=== PATIENT | male | born 1965 | race Caucasian/White ===

== ENCOUNTER 2016-09-25 18:06 | Emergency (ER) | payer MEDICAID ==
[~2016-09-25] VITALS: Ht 185.4 cm; Wt 75.0 kg
[~2016-09-25 18:06] MED LIST: AMIT100T PO; FERR325T20 PO; FLUO20CA8 PO; FLUO40CA9 PO; FOLI-17 PO; HYDR-3138 PO; MAGN400T26 PO; MULT-750 PO; RISP1TAB45 PO; RISP3TAB3 PO; SULF1TAB3 PO; THIA100T6 PO; TRAM-28 PO
[2016-09-25] MEDS ORDERED: SUCR1ORA2 PO (18:20)
[2016-09-25] MEDS ORDERED: QUET400T4 PO (18:20)
[2016-09-25] MEDS ORDERED: LISI-167 PO (18:20)
[2016-09-25] MEDS ORDERED: GLUCAGON 1 MG IVPush ONE (18:30)
[2016-09-25] MEDS ORDERED: SODIUM CHLORIDE 0.9% 1,000ML IVBOLUS ONE (18:30)
[2016-09-25] MEDS ORDERED: PROPOFOL 10 MG/ML, 20ML ONE (18:58)
[2016-09-25] MEDS ORDERED: PROPOFOL 10 MG/ML, 20ML IVPush ONE ×2 (19:00→21:00)
[2016-09-25] MEDS ORDERED: GLUCAGON 1 MG ONE (19:02)
[2016-09-25 19:22] LABS: BLOOD UREA NITROGEN 16 mg/dL (7-18)
[2016-09-25 19:26] LABS: ASPARTATE AMINO TRANSFERASE 23 U/L (15-37)
[2016-09-25] MEDS ORDERED: FENTANYL PF 100 MCG/2ML ONE (20:03)
[2016-09-25] MEDS ORDERED: NALOXONE 0.4 MG/ML, 1ML ONE (20:03)
[2016-09-25] MEDS ORDERED: MIDAZOLAM 1 MG/ML, 5ML ONE (20:04)
[2016-09-25] MEDS ORDERED: FLUMAZENIL 0.1 MG/1 ML, 5ML ONE (20:04)
[2016-09-25] MEDS ORDERED: ONDANSETRON 2MG/ML, 2ML ONE ×2 (20:36→20:42)
[2016-09-25] MEDS ORDERED: FENTANYL PF 100 MCG/2ML IVPush ONE (21:00)
[2016-09-25] MEDS ORDERED: ONDANSETRON 2MG/ML, 2ML IVPush ONE (21:00)
[2016-09-25 21:42] VITALS: BP 111/73
== END 2016-09-25 21:44 | disposition home or self-care (01) ==
LOC: ED 18:24
DX: T18.108A Unspecified foreign body in esophagus causing other injury, initial encounter (principal); X58.XXXA Exposure to other specified factors, initial encounter; Y93.89 Activity, other specified; Y92.89 Other specified places as the place of occurrence of the external cause; Y99.9 Unspecified external cause status
CPT/HCPCS: 36415; 43247; 80053; 85025; 96361; 96374; 96375; 99285; J1610; J2405; J2704; J3010; J7030; 88305

== ENCOUNTER 2016-10-14 13:09 | Inpatient (IN) | payer MEDICAID ==
[~2016-10-14] VITALS: Ht 185.4 cm; Wt 75.0 kg
[~2016-10-14 13:09] MED LIST changes: +LISI-167 PO; +QUET400T4 PO; +SUCR1ORA2 PO
[2016-10-14] MEDS ORDERED: FAMOTIDINE 20 MG/2 ML ONE (13:48)
[2016-10-14] MEDS ORDERED: METOCLOPRAMIDE 5 MG/ML, 2ML ONE (13:48)
[2016-10-14] MEDS ORDERED: DIPHENHYDRAMINE 50 MG/ML, 1ML ONE (13:48)
[2016-10-14] MEDS ORDERED: SODIUM CHLORIDE FLUSH 10ML SYR IVF ONE (14:00)
[2016-10-14] MEDS ORDERED: SODIUM CHLORIDE 0.9% 1,000ML IVBOLUS ONE (14:00)
[2016-10-14] MEDS ORDERED: DIPHENHYDRAMINE 50 MG/ML, 1ML IVPush ONE (14:00)
[2016-10-14] MEDS ORDERED: METOCLOPRAMIDE 5 MG/ML, 2ML IVPush ONE (14:00)
[2016-10-14] MEDS ORDERED: FAMOTIDINE 20 MG/2 ML IVP ONE (14:00)
[2016-10-14 14:26] LABS: BLOOD UREA NITROGEN 42 mg/dL (7-18)
[2016-10-14 14:30] LABS: ASPARTATE AMINO TRANSFERASE 39 U/L (15-37)
[2016-10-14 15:26] LABS: DAU SCREEN DISCLAIMER
[2016-10-14] MEDS ORDERED: SODIUM CHLORIDE 0.9% 1,000 ML IV ONE (15:30)
[2016-10-14] MEDS: SODIUM CHLORIDE 0.9% 1,000 ML IV SCH (15:43)
[2016-10-14] MEDS ORDERED: ACETAMINOPHEN 325 MG TABLET ONE (15:58)
[2016-10-14] MEDS ORDERED: OXYcodone IR 5MG TABLET ONE (15:58)
[2016-10-14] MEDS ORDERED: hydrALAzine 20 MG/ML, 1ML IVPush PRN (16:00)
[2016-10-14] MEDS ORDERED: ENALAPRILAT 1.25 MG/ML, 2ML IVPush PRN (16:00)
[2016-10-14] MEDS ORDERED: BISACODYL 10 MG SUPP PR PRN (16:00)
[2016-10-14] MEDS ORDERED: OXYcodone IR 5MG TABLET PO PRN (16:00)
[2016-10-14] MEDS ORDERED: ACETAMINOPHEN 325 MG TABLET PO PRN (16:00)
[2016-10-14] MEDS ORDERED: POLYETHYLENE GLYCOL 17 GM PACKET PO PRN (16:00)
[2016-10-14] MEDS ORDERED: ONDANSETRON 2MG/ML, 2ML IVPush PRN (16:00)
[2016-10-14] MEDS ORDERED: morphine SULFATE 10 MG/ML, 1ML IVPush PRN (16:00)
[2016-10-14] MEDS ORDERED: DOCUSATE 100 MG CAPSULE PO PRN (16:00)
[2016-10-14 17:12] VITALS: BP 108/70
[2016-10-14] MEDS ORDERED: THIAMINE 100 MG, MVI ADULT 10 ML, FOLIC ACID 1 MG in D5%-0.9% NACL 1,000 ML IV SCH (17:30)
[2016-10-14] MEDS: PANTOPRAZOLE 40 MG IV IVPush SCH (18:18)
[2016-10-14 19:57] VITALS: BP 109/70
[2016-10-14] MEDS: SUCRALFATE 1 GM/10 ML UDC PO SCH ×2 (20:36→20:58)
[2016-10-14] MEDS ORDERED: QUETIAPINE 100MG TABLET PO SCH (21:00)
[2016-10-15 02:03] VITALS: BP 107/71
[2016-10-15 05:10] LABS: BLOOD UREA NITROGEN 19 mg/dL (7-18)
[2016-10-15 05:29] LABS: ASPARTATE AMINO TRANSFERASE 31 U/L (15-37)
[2016-10-15] MEDS: PANTOPRAZOLE 40 MG IV IVPush SCH ×2 (05:43→16:48)
[2016-10-15 08:25] VITALS: BP 93/56
[2016-10-15] MEDS: SUCRALFATE 1 GM/10 ML UDC PO SCH ×3 (08:34→16:48)
[2016-10-15] MEDS ORDERED: FLUOXETINE 20 MG CAPSULE PO SCH (09:00)
[2016-10-15] MEDS ORDERED: FOLIC ACID 1 MG TABLET PO SCH (09:00)
[2016-10-15] MEDS ORDERED: POTASSIUM CHLORIDE 40 MEQ in SODIUM CHLORIDE 0.9% 500 ML IV ONE (11:00)
[2016-10-15] MEDS: SODIUM CHLORIDE 0.9% 1,000 ML IV SCH (11:39)
[2016-10-15 15:17] VITALS: BP 98/55
== END 2016-10-15 19:05 | disposition left against medical advice (07) | DRG 391 ==
LOC: ED 14:51 → EDIP 14:54 → 3NE 16:44
PROVIDERS: ADMIT Hospitalist; ATTEND Hospitalist
DX: K29.20 Alcoholic gastritis without bleeding (principal); N17.0 Acute kidney failure with tubular necrosis; F10.239 Alcohol dependence with withdrawal, unspecified; E86.0 Dehydration; F31.9 Bipolar disorder, unspecified; I10 Essential (primary) hypertension; D64.9 Anemia, unspecified; Z82.5 Family history of asthma and other chronic lower respiratory diseases
CPT/HCPCS: 36415; 76700; 80053; 80061; 80307; 81003; 83036; 83690; 83735; 84439; 84443; 85025; 93005; 96361; 96374; 96375; J3411; J3480; J7042; C9113; J1200; J2765; J7030; J7040; S0028

== ENCOUNTER 2016-10-17 22:24 | Emergency (ER) | payer MEDICAID ==
[~2016-10-17] VITALS: Ht 185.4 cm; Wt 76.0 kg
[2016-10-18 00:48] VITALS: BP 117/73
== END 2016-10-18 01:53 | disposition home or self-care (01) ==
LOC: ED 23:03
DX: G31.2 Degeneration of nervous system due to alcohol (principal); F10.129 Alcohol abuse with intoxication, unspecified; F17.200 Nicotine dependence, unspecified, uncomplicated; J44.9 Chronic obstructive pulmonary disease, unspecified
CPT/HCPCS: 99283

== ENCOUNTER 2016-10-18 04:45 | Emergency (ER) | payer MEDICAID ==
[~2016-10-18] VITALS: Ht 177.8 cm; Wt 86.3 kg
[2016-10-18 06:24] LABS: ASPARTATE AMINO TRANSFERASE 67 U/L (15-37); BLOOD UREA NITROGEN 14 mg/dL (7-18)
[2016-10-18 08:23] VITALS: BP 110/77
[2016-10-18] MEDS ORDERED: BACITRACIN ZINC OINT 500U/GM, 0.9 GM ONE (10:09)
== END 2016-10-18 10:24 | disposition home or self-care (01) ==
LOC: ED 05:32
DX: S00.83XA Contusion of other part of head, initial encounter (principal); S00.33XA Contusion of nose, initial encounter; F10.120 Alcohol abuse with intoxication, uncomplicated; J44.9 Chronic obstructive pulmonary disease, unspecified; F17.210 Nicotine dependence, cigarettes, uncomplicated; Y04.2XXA Assault by strike against or bumped into by another person, initial encounter
CPT/HCPCS: 36415; 70450; 70486; 80053; 80307; 85025; 85610; 85730; 99285

== ENCOUNTER 2016-11-01 12:32 | Emergency (ER) | payer MEDICAID ==
[~2016-11-01] VITALS: Ht 185.4 cm; Wt 74.0 kg
[2016-11-01 13:48] LABS: BLOOD UREA NITROGEN 13 mg/dL (7-18)
[2016-11-01 13:57] LABS: ACETAMINOPHEN < 2 mcg/mL (10-30); ASPARTATE AMINO TRANSFERASE 39 U/L (15-37)
[2016-11-01 16:29] LABS: DAU SCREEN DISCLAIMER
[2016-11-01] MEDS ORDERED: ZIPRASIDONE 20 MG INJ IM ONE ×2 (17:31→18:00)
[2016-11-01 20:17] VITALS: BP 118/70
[2016-11-01] MEDS ORDERED: PROMETHAZINE 25 MG/ML, 1ML ONE (20:59)
[2016-11-01] MEDS ORDERED: PROMETHAZINE 25 MG/ML, 1ML IM ONE (21:00)
[2016-11-01] MEDS ORDERED: LORazepam 1MG TABLET ONE (22:29)
[2016-11-01] MEDS ORDERED: LORazepam 1MG TABLET PO ONE (22:30)
== END 2016-11-01 23:02 | disposition home or self-care (01) ==
LOC: ED 12:59
DX: S21.112D Laceration without foreign body of left front wall of thorax without penetration into thoracic cavity, subsequent encounter (principal); F10.129 Alcohol abuse with intoxication, unspecified
CPT/HCPCS: 36415; 71010; 80053; 80307; 80329; 85025; 96372; 99285; J2550; J3486; G0480

== ENCOUNTER 2016-11-15 02:45 | Emergency (ER) | payer MEDICAID ==
[~2016-11-15] VITALS: Ht 185.4 cm; Wt 74.7 kg
[2016-11-15] MEDS ORDERED: FLUO40CA9 PO (03:47)
[2016-11-15] MEDS ORDERED: QUET400T4 PO (03:47)
[2016-11-15] MEDS ORDERED: PROMETHAZINE 25 MG/ML, 1ML ONE (04:26)
[2016-11-15] MEDS ORDERED: PROMETHAZINE 25 MG/ML, 1ML IM ONE (04:30)
[2016-11-15 04:43] LABS: ASPARTATE AMINO TRANSFERASE 27 U/L (15-37); BLOOD UREA NITROGEN 13 mg/dL (7-18)
[2016-11-15] MEDS ORDERED: ONDANSETRON ODT 8 MG PO STA (05:22)
[2016-11-15] MEDS ORDERED: ONDANSETRON ODT 4 MG ONE (05:30)
[2016-11-15] MEDS ORDERED: ONDANSETRON ODT 8 MG ONE (05:31)
[2016-11-15 06:02] VITALS: BP 121/79
== END 2016-11-15 06:12 | disposition home or self-care (01) ==
LOC: ED 03:39
DX: K29.20 Alcoholic gastritis without bleeding (principal); F15.10 Other stimulant abuse, uncomplicated; F12.10 Cannabis abuse, uncomplicated; F10.10 Alcohol abuse, uncomplicated; J44.9 Chronic obstructive pulmonary disease, unspecified; G40.909 Epilepsy, unspecified, not intractable, without status epilepticus; F17.210 Nicotine dependence, cigarettes, uncomplicated
CPT/HCPCS: 36415; 71010; 80053; 80307; 81003; 83690; 85025; 96372; 99285; J2550; Q0162

== ENCOUNTER 2016-11-21 04:18 | Emergency (ER) | payer MEDICAID ==
[2016-11-21 04:53] VITALS: BP 104/71
== END 2016-11-21 05:13 | disposition home or self-care (01) ==
LOC: ED 05:07
DX: Z76.5 Malingerer [conscious simulation] (principal)
CPT/HCPCS: 99281

== ENCOUNTER 2016-11-30 16:46 | Inpatient (IN) | payer MEDICAID ==
[~2016-11-30] VITALS: Ht 185.4 cm; Wt 72.7 kg
[~2016-11-30 16:46] MED LIST changes: +FERR325T18 PO; -FERR325T20 PO; -HYDR-3138 PO; +HYDR-3237 PO; -SUCR1ORA2 PO; +SUCR1ORA5 PO; +SULF-169 PO; -SULF1TAB3 PO; -TRAM-28 PO; +TRAM-47 PO
[2016-11-30 17:50] LABS: HEMATOCRIT 40.2 % (39.2-51.8); HEMOGLOBIN 13.1 g/dL (13.7-18.0); WHITE BLOOD COUNT 10.3 x10^3/uL (3.4-10)
[2016-11-30 17:59] LABS: ASPARTATE AMINO TRANSFERASE 37 U/L (15-37); BLOOD UREA NITROGEN 12 mg/dL (7-18)
[2016-11-30] MEDS ORDERED: MAALOX/HYOSCYAMINE/LIDOCAINE 45 ML BTL PO ONE (18:00)
[2016-11-30 18:06] LABS: ACETAMINOPHEN < 2 mcg/mL (10-30)
[2016-11-30] MEDS ORDERED: LORazepam 2 MG/ML, 1ML IVPush ONE (19:00)
[2016-11-30] MEDS ORDERED: SODIUM CHLORIDE FLUSH 10ML SYR IVF ONE (19:00)
[2016-11-30] MEDS ORDERED: LORazepam 2 MG/ML, 1ML ONE ×2 (19:04→21:45)
[2016-11-30] MEDS ORDERED: MAALOX/HYOSCYAMINE/LIDOCAINE 45 ML BTL ONE (19:26)
[2016-11-30 19:37] LABS: DAU SCREEN DISCLAIMER
[2016-11-30 19:45] LABS: PATH.CAST-FLAG NOT PRESENT; SPERM-FLAG NOT PRESENT; SRC-FLAG NOT PRESENT; XTAL-FLAG NOT PRESENT; YLC-FLAG NOT PRESENT
[2016-11-30] MEDS ORDERED: THIAMINE 100MG TABLET PO ONE (20:00)
[2016-11-30] MEDS ORDERED: LORazepam 2 MG/ML, 1ML IVPush PRN (20:00)
[2016-11-30] MEDS ORDERED: SODIUM CHLORIDE 0.9% 1,000 ML IV SCH (20:50)
[2016-11-30] MEDS ORDERED: LORazepam 0.5MG TABLET PO PRN (21:00)
[2016-11-30] MEDS ORDERED: LORazepam 2 MG/ML, 1ML IV PRN ×3 (21:00)
[2016-11-30] MEDS ORDERED: DOCUSATE 100 MG CAPSULE PO PRN (21:00)
[2016-11-30] MEDS ORDERED: LORazepam 1MG TABLET PO PRN (21:00)
[2016-11-30] MEDS ORDERED: morphine SULFATE 10 MG/ML, 1ML IVPush PRN (21:00)
[2016-11-30] MEDS ORDERED: ACETAMINOPHEN 325 MG TABLET PO PRN (21:00)
[2016-11-30] MEDS ORDERED: POLYETHYLENE GLYCOL 17 GM PACKET PO PRN (21:00)
[2016-11-30] MEDS ORDERED: GUAIFENESIN/DM 200-20MG, 10ML UDC PO PRN (21:00)
[2016-11-30] MEDS ORDERED: THIAMINE 100MG TABLET ONE (21:17)
[2016-11-30] MEDS ORDERED: ONDANSETRON 2MG/ML, 2ML ONE (21:17)
[2016-11-30] MEDS ORDERED: CEFTRIAXONE PMX 1GM/50ML 50 ML ONE (21:18)
[2016-11-30] MEDS: CEFTRIAXONE PMX 1GM/50ML 50 ML IV SCH (21:34)
[2016-11-30] MEDS: ONDANSETRON 2MG/ML, 2ML IVPush PRN (21:35)
[2016-11-30] MEDS ORDERED: OXYcodone IR 5MG TABLET ONE (21:43)
[2016-11-30] MEDS: QUETIAPINE 100MG TABLET PO SCH (21:49)
[2016-11-30] MEDS: OXYcodone IR 5MG TABLET PO PRN (21:49)
[2016-12-01 02:33] VITALS: BP 109/75
[2016-12-01 05:55] LABS: HEMOGLOBIN 11.9 g/dL (13.7-18.0); WHITE BLOOD COUNT 11.6 x10^3/uL (3.4-10)
[2016-12-01 05:58] LABS: BLOOD UREA NITROGEN 13 mg/dL (7-18)
[2016-12-01 08:00] VITALS: BP 110/66
[2016-12-01] MEDS ORDERED: SENNA/DOCUSATE TABLET PO SCH (09:00)
[2016-12-01] MEDS: MULTIVITAMINS/MINERALS TABLET PO SCH (09:11)
[2016-12-01] MEDS: FLUOXETINE 20 MG CAPSULE PO SCH (09:11)
[2016-12-01] MEDS: FOLIC ACID 1 MG TABLET PO SCH (09:12)
[2016-12-01] MEDS: THIAMINE 100MG TABLET PO SCH (09:12)
[2016-12-01] MEDS ORDERED: SODIUM CHLORIDE 0.9% 1,000 ML IV ONE (09:30)
[2016-12-01 13:34] VITALS: BP 103/58
[2016-12-01 14:42] VITALS: BP 105/66
[2016-12-01] MEDS: OXYcodone IR 5MG TABLET PO PRN ×2 (14:44→20:49)
[2016-12-01 19:30] VITALS: BP 109/70
[2016-12-01] MEDS: CEFTRIAXONE PMX 1GM/50ML 50 ML IV SCH (20:48)
[2016-12-01] MEDS: QUETIAPINE 100MG TABLET PO SCH (20:48)
[2016-12-02 02:36] VITALS: BP 142/89
[2016-12-02 03:55] VITALS: BP 128/76
[2016-12-02 05:30] LABS: HEMATOCRIT 33.6 % (39.2-51.8); HEMOGLOBIN 11.3 g/dL (13.7-18.0); WHITE BLOOD COUNT 6.6 x10^3/uL (3.4-10)
[2016-12-02 05:42] LABS: ASPARTATE AMINO TRANSFERASE 29 U/L (15-37); BLOOD UREA NITROGEN 10 mg/dL (7-18)
[2016-12-02 07:02] VITALS: BP 117/65
[2016-12-02] MEDS: SENNA/DOCUSATE TABLET PO SCH (09:03)
[2016-12-02] MEDS: FOLIC ACID 1 MG TABLET PO SCH (09:03)
[2016-12-02] MEDS: MULTIVITAMINS/MINERALS TABLET PO SCH (09:03)
[2016-12-02] MEDS: THIAMINE 100MG TABLET PO SCH (09:03)
[2016-12-02] MEDS: FLUOXETINE 20 MG CAPSULE PO SCH (09:03)
[2016-12-02] MEDS: LORazepam 1MG TABLET PO PRN ×3 (10:22→22:10)
[2016-12-02] MEDS: ONDANSETRON 2MG/ML, 2ML IVPush PRN (10:22)
[2016-12-02 13:21] VITALS: BP 100/64
[2016-12-02] MEDS: FERROUS SULFATE 325 MG TABLET PO SCH (16:33)
[2016-12-02 19:45] VITALS: BP 109/69
[2016-12-02] MEDS: CEFTRIAXONE PMX 1GM/50ML 50 ML IV SCH (22:09)
[2016-12-02] MEDS: OXYcodone IR 5MG TABLET PO PRN (22:10)
[2016-12-02] MEDS: QUETIAPINE 100MG TABLET PO SCH (22:10)
[2016-12-03 03:48] VITALS: BP 109/74
[2016-12-03 05:14] LABS: HEMATOCRIT 35.8 % (39.2-51.8); HEMOGLOBIN 11.6 g/dL (13.7-18.0)
[2016-12-03 05:21] LABS: BLOOD UREA NITROGEN 8 mg/dL (7-18)
[2016-12-03 06:56] VITALS: BP 100/66
[2016-12-03] MEDS: FERROUS SULFATE 325 MG TABLET PO SCH ×2 (10:11→16:56)
[2016-12-03] MEDS: MULTIVITAMINS/MINERALS TABLET PO SCH (10:11)
[2016-12-03] MEDS: FOLIC ACID 1 MG TABLET PO SCH (10:11)
[2016-12-03] MEDS: THIAMINE 100MG TABLET PO SCH (10:12)
[2016-12-03] MEDS: SENNA/DOCUSATE TABLET PO SCH (10:12)
[2016-12-03] MEDS: FLUOXETINE 20 MG CAPSULE PO SCH (10:12)
[2016-12-03] MEDS: ONDANSETRON 2MG/ML, 2ML IVPush PRN (11:36)
[2016-12-03 13:16] VITALS: BP 96/60
[2016-12-03] MEDS: OXYcodone IR 5MG TABLET PO PRN (15:08)
[2016-12-03 19:00] VITALS: BP 127/79
[2016-12-03] MEDS: QUETIAPINE 100MG TABLET PO SCH (20:53)
[2016-12-04 03:00] VITALS: BP 92/56
[2016-12-04 08:07] VITALS: BP 108/79
[2016-12-04] MEDS: FOLIC ACID 1 MG TABLET PO SCH (08:18)
[2016-12-04] MEDS: SENNA/DOCUSATE TABLET PO SCH (08:18)
[2016-12-04] MEDS: MULTIVITAMINS/MINERALS TABLET PO SCH (08:18)
[2016-12-04] MEDS: FLUOXETINE 20 MG CAPSULE PO SCH (08:18)
[2016-12-04] MEDS: THIAMINE 100MG TABLET PO SCH (08:18)
[2016-12-04] MEDS: TAMSULOSIN 0.4 MG CAP.ER.24H PO SCH (08:18)
[2016-12-04] MEDS: FERROUS SULFATE 325 MG TABLET PO SCH ×2 (08:18→17:14)
[2016-12-04 13:23] VITALS: BP 122/82
[2016-12-04] MEDS ORDERED: LORazepam 1MG TABLET ONE (17:11)
[2016-12-04] MEDS: LORazepam 1MG TABLET PO PRN (17:14)
[2016-12-04] MEDS: QUETIAPINE 100MG TABLET PO SCH (20:01)
[2016-12-04 21:00] VITALS: BP 97/62
[2016-12-05 02:28] VITALS: BP 99/68
[2016-12-05 07:18] VITALS: BP 102/72
[2016-12-05] MEDS: TAMSULOSIN 0.4 MG CAP.ER.24H PO SCH (09:56)
[2016-12-05] MEDS: FLUOXETINE 20 MG CAPSULE PO SCH (09:56)
[2016-12-05] MEDS: FERROUS SULFATE 325 MG TABLET PO SCH ×2 (09:56→17:23)
[2016-12-05] MEDS: THIAMINE 100MG TABLET PO SCH (09:56)
[2016-12-05] MEDS: FOLIC ACID 1 MG TABLET PO SCH (09:56)
[2016-12-05] MEDS: MULTIVITAMINS/MINERALS TABLET PO SCH (09:56)
[2016-12-05] MEDS: SENNA/DOCUSATE TABLET PO SCH (09:57)
[2016-12-05] MEDS: LORazepam 1MG TABLET PO PRN (12:16)
[2016-12-05 14:19] VITALS: BP 131/88
[2016-12-05] MEDS: OXYcodone IR 5MG TABLET PO PRN (17:31)
[2016-12-05 18:47] VITALS: BP 122/82
[2016-12-05] MEDS: QUETIAPINE 100MG TABLET PO SCH (20:49)
[2016-12-06 01:58] VITALS: BP 102/68
[2016-12-06] MEDS: OXYcodone IR 5MG TABLET PO PRN (05:13)
[2016-12-06 06:47] VITALS: BP 110/72
[2016-12-06] MEDS: FERROUS SULFATE 325 MG TABLET PO SCH ×2 (09:55→17:51)
[2016-12-06] MEDS: FLUOXETINE 20 MG CAPSULE PO SCH (09:57)
[2016-12-06] MEDS: SENNA/DOCUSATE TABLET PO SCH (09:57)
[2016-12-06] MEDS: THIAMINE 100MG TABLET PO SCH (09:57)
[2016-12-06] MEDS: FOLIC ACID 1 MG TABLET PO SCH (09:57)
[2016-12-06] MEDS: TAMSULOSIN 0.4 MG CAP.ER.24H PO SCH (09:57)
[2016-12-06] MEDS: MULTIVITAMINS/MINERALS TABLET PO SCH (09:58)
[2016-12-06 13:02] VITALS: BP 105/78
[2016-12-06] MEDS: LORazepam 1MG TABLET PO PRN (18:03)
[2016-12-06 18:46] VITALS: BP 135/87
[2016-12-06] MEDS: QUETIAPINE 100MG TABLET PO SCH (20:42)
[2016-12-07 01:20] VITALS: BP 108/73
[2016-12-07 07:24] VITALS: BP 99/64
[2016-12-07] MEDS: MULTIVITAMINS/MINERALS TABLET PO SCH (08:03)
[2016-12-07] MEDS: FLUOXETINE 20 MG CAPSULE PO SCH (08:03)
[2016-12-07] MEDS: FERROUS SULFATE 325 MG TABLET PO SCH ×2 (08:03→17:12)
[2016-12-07] MEDS: SENNA/DOCUSATE TABLET PO SCH (08:03)
[2016-12-07] MEDS: FOLIC ACID 1 MG TABLET PO SCH (08:03)
[2016-12-07] MEDS: TAMSULOSIN 0.4 MG CAP.ER.24H PO SCH (08:03)
[2016-12-07] MEDS: THIAMINE 100MG TABLET PO SCH (08:03)
[2016-12-07 13:56] VITALS: BP 107/72
[2016-12-07] MEDS: LORazepam 1MG TABLET PO PRN ×2 (13:58→19:14)
[2016-12-07 18:25] VITALS: BP 131/92
[2016-12-07 19:23] VITALS: BP 124/84
[2016-12-07] MEDS: QUETIAPINE 100MG TABLET PO SCH (21:06)
[2016-12-08 07:52] VITALS: BP 114/77
[2016-12-08] MEDS: FLUOXETINE 20 MG CAPSULE PO SCH (08:44)
[2016-12-08] MEDS: SENNA/DOCUSATE TABLET PO SCH (08:44)
[2016-12-08] MEDS: FOLIC ACID 1 MG TABLET PO SCH (08:44)
[2016-12-08] MEDS: LORazepam 1MG TABLET PO PRN (08:44)
[2016-12-08] MEDS: THIAMINE 100MG TABLET PO SCH (08:44)
[2016-12-08] MEDS: FERROUS SULFATE 325 MG TABLET PO SCH ×2 (08:44→16:34)
[2016-12-08] MEDS: MULTIVITAMINS/MINERALS TABLET PO SCH (08:44)
[2016-12-08] MEDS: TAMSULOSIN 0.4 MG CAP.ER.24H PO SCH (08:44)
[2016-12-08 19:18] VITALS: BP 121/87
[2016-12-08] MEDS ORDERED: POLYETHYLENE GLYCOL 17 GM PACKET PO PRN (19:30)
[2016-12-08] MEDS ORDERED: DOCUSATE 100 MG CAPSULE PO PRN (19:30)
[2016-12-08] MEDS ORDERED: GUAIFENESIN/DM 200-20MG, 10ML UDC PO PRN (19:30)
[2016-12-08] MEDS ORDERED: morphine SULFATE 10 MG/ML, 1ML IVPush PRN (19:30)
[2016-12-08] MEDS: QUETIAPINE 100MG TABLET PO SCH (20:54)
[2016-12-09 07:47] VITALS: BP 112/75
[2016-12-09] MEDS: MULTIVITAMINS/MINERALS TABLET PO SCH (08:45)
[2016-12-09] MEDS: FOLIC ACID 1 MG TABLET PO SCH (08:45)
[2016-12-09] MEDS: SENNA/DOCUSATE TABLET PO SCH (08:45)
[2016-12-09] MEDS: TAMSULOSIN 0.4 MG CAP.ER.24H PO SCH (08:45)
[2016-12-09] MEDS: FERROUS SULFATE 325 MG TABLET PO SCH ×2 (08:45→16:29)
[2016-12-09] MEDS: THIAMINE 100MG TABLET PO SCH (08:45)
[2016-12-09] MEDS: FLUOXETINE 20 MG CAPSULE PO SCH (08:45)
[2016-12-09] MEDS: LORazepam 1MG TABLET PO PRN ×2 (08:51→16:29)
[2016-12-09 19:33] VITALS: BP 122/77
[2016-12-09] MEDS: QUETIAPINE 100MG TABLET PO SCH (21:20)
[2016-12-10 08:00] VITALS: BP 126/87
[2016-12-10] MEDS: FERROUS SULFATE 325 MG TABLET PO SCH ×2 (09:25→16:55)
[2016-12-10] MEDS: THIAMINE 100MG TABLET PO SCH (09:25)
[2016-12-10] MEDS: FOLIC ACID 1 MG TABLET PO SCH (09:25)
[2016-12-10] MEDS: MULTIVITAMINS/MINERALS TABLET PO SCH (09:25)
[2016-12-10] MEDS: TAMSULOSIN 0.4 MG CAP.ER.24H PO SCH (09:25)
[2016-12-10] MEDS: SENNA/DOCUSATE TABLET PO SCH (09:26)
[2016-12-10] MEDS: FLUOXETINE 20 MG CAPSULE PO SCH (09:26)
[2016-12-10] MEDS: LORazepam 1MG TABLET PO PRN ×3 (09:32→19:33)
[2016-12-10 19:32] VITALS: BP 129/80
[2016-12-10] MEDS: QUETIAPINE 100MG TABLET PO SCH (21:02)
[2016-12-11] MEDS: SENNA/DOCUSATE TABLET PO SCH (08:40)
[2016-12-11] MEDS: LORazepam 1MG TABLET PO PRN ×3 (08:40→20:43)
[2016-12-11] MEDS: MULTIVITAMINS/MINERALS TABLET PO SCH (08:40)
[2016-12-11] MEDS: THIAMINE 100MG TABLET PO SCH (08:40)
[2016-12-11] MEDS: FLUOXETINE 20 MG CAPSULE PO SCH (08:40)
[2016-12-11] MEDS: FERROUS SULFATE 325 MG TABLET PO SCH ×2 (08:40→16:33)
[2016-12-11] MEDS: FOLIC ACID 1 MG TABLET PO SCH (08:40)
[2016-12-11] MEDS: TAMSULOSIN 0.4 MG CAP.ER.24H PO SCH (08:40)
[2016-12-11 09:06] VITALS: BP 105/71
[2016-12-11] MEDS: PROMETHAZINE 25MG TABLET PO PRN (11:06)
[2016-12-11 19:46] VITALS: BP 131/82
[2016-12-11] MEDS: QUETIAPINE 100MG TABLET PO SCH (21:30)
[2016-12-12 07:42] VITALS: BP 126/82
[2016-12-12] MEDS: THIAMINE 100MG TABLET PO SCH (08:09)
[2016-12-12] MEDS: FERROUS SULFATE 325 MG TABLET PO SCH ×2 (08:09→16:04)
[2016-12-12] MEDS: FLUOXETINE 20 MG CAPSULE PO SCH (08:09)
[2016-12-12] MEDS: TAMSULOSIN 0.4 MG CAP.ER.24H PO SCH (08:09)
[2016-12-12] MEDS: MULTIVITAMINS/MINERALS TABLET PO SCH (08:09)
[2016-12-12] MEDS: FOLIC ACID 1 MG TABLET PO SCH (08:09)
[2016-12-12] MEDS: SENNA/DOCUSATE TABLET PO SCH (08:20)
[2016-12-12] MEDS: LORazepam 1MG TABLET PO PRN ×3 (08:20→20:09)
[2016-12-12] MEDS: PROMETHAZINE 25MG TABLET PO PRN (08:20)
[2016-12-12 19:35] VITALS: BP 123/84
[2016-12-12] MEDS: QUETIAPINE 100MG TABLET PO SCH (21:19)
[2016-12-13 07:44] VITALS: BP 104/68
[2016-12-13] MEDS: FERROUS SULFATE 325 MG TABLET PO SCH ×2 (08:36→17:08)
[2016-12-13] MEDS: TAMSULOSIN 0.4 MG CAP.ER.24H PO SCH (08:36)
[2016-12-13] MEDS: FLUOXETINE 20 MG CAPSULE PO SCH (08:36)
[2016-12-13] MEDS: THIAMINE 100MG TABLET PO SCH (08:36)
[2016-12-13] MEDS: FOLIC ACID 1 MG TABLET PO SCH (08:37)
[2016-12-13] MEDS: MULTIVITAMINS/MINERALS TABLET PO SCH (08:37)
[2016-12-13] MEDS: SENNA/DOCUSATE TABLET PO SCH (08:37)
[2016-12-13] MEDS: LORazepam 1MG TABLET PO PRN ×2 (08:42→15:15)
[2016-12-13 19:38] VITALS: BP 118/79
[2016-12-13] MEDS: QUETIAPINE 100MG TABLET PO SCH (20:27)
== END 2016-12-14 00:40 | DRG 885 ==
LOC: ED 18:06 → SUATTDRO 20:41 → EDIP 21:00 → 5SO 12-01 02:26 → 4EST 12-02 03:28 → 3E 12-07 18:24
PROVIDERS: ADMIT Family Medicine; ATTEND Family Medicine
DX: F31.9 Bipolar disorder, unspecified (principal); K92.0 Hematemesis; R45.851 Suicidal ideations; F10.239 Alcohol dependence with withdrawal, unspecified; J98.11 Atelectasis; N39.0 Urinary tract infection, site not specified; F19.959 Other psychoactive substance use, unspecified with psychoactive substance-induced psychotic disorder, unspecified; F41.9 Anxiety disorder, unspecified; G40.909 Epilepsy, unspecified, not intractable, without status epilepticus; J44.9 Chronic obstructive pulmonary disease, unspecified; K29.00 Acute gastritis without bleeding; K29.20 Alcoholic gastritis without bleeding; K59.00 Constipation, unspecified; Z59.0 Homelessness; Z87.891 Personal history of nicotine dependence
CPT/HCPCS: 36415; 71010; 80048; 80053; 80307; 80329; 81001; 82607; 82746; 83540; 83550; 83735; 85025; 87086; J0696; J2405; Q0169; G0480; J2060; J7030

== ENCOUNTER 2017-01-02 21:06 | Emergency (ER) | payer MEDICAID ==
[~2017-01-02] VITALS: Ht 185.4 cm; Wt 73.6 kg
[2017-01-02] MEDS ORDERED: FAMOTIDINE 20 MG TABLET ONE (21:56)
[2017-01-02] MEDS ORDERED: THIAMINE 100 MG/ML, 2ML ONE (21:56)
[2017-01-02] MEDS ORDERED: LORazepam 1MG TABLET ONE (21:57)
[2017-01-02] MEDS ORDERED: ONDANSETRON ODT 4 MG ONE (21:57)
[2017-01-02] MEDS ORDERED: ONDANSETRON ODT 4 MG PO ONE (22:00)
[2017-01-02] MEDS ORDERED: FAMOTIDINE 20 MG TABLET PO ONE (22:00)
[2017-01-02] MEDS ORDERED: LORazepam 1MG TABLET PO ONE ×2 (22:00→23:30)
[2017-01-02] MEDS ORDERED: THIAMINE 100 MG/ML, 2ML IM ONE (22:00)
[2017-01-02 22:15] LABS: HEMATOCRIT 40.5 % (39.2-51.8); HEMOGLOBIN 13.3 g/dL (13.7-18.0); WHITE BLOOD COUNT 6.7 x10^3/uL (3.4-10)
[2017-01-02 22:20] LABS: ASPARTATE AMINO TRANSFERASE 22 U/L (15-37); BLOOD UREA NITROGEN 11 mg/dL (7-18)
[2017-01-02 22:36] LABS: DAU SCREEN DISCLAIMER
[2017-01-03] MEDS ORDERED: LORazepam 1MG TABLET ONE (00:01)
[2017-01-03 01:38] VITALS: BP 132/68
== END 2017-01-03 01:40 | disposition home or self-care (01) ==
LOC: ED 21:34
DX: F10.239 Alcohol dependence with withdrawal, unspecified (principal); F31.9 Bipolar disorder, unspecified; G40.909 Epilepsy, unspecified, not intractable, without status epilepticus; J44.9 Chronic obstructive pulmonary disease, unspecified
CPT/HCPCS: 36415; 80053; 80307; 83690; 85025; 99284; Q0162; G0479

== ENCOUNTER 2017-01-23 17:57 | Emergency (ER) | payer MEDICAID ==
[~2017-01-23] VITALS: Ht 185.4 cm; Wt 74.0 kg
[2017-01-23 18:26] LABS: HEMATOCRIT 38.5 % (39.2-51.8); HEMOGLOBIN 12.9 g/dL (13.7-18.0); WHITE BLOOD COUNT 7.8 x10^3/uL (3.4-10)
[2017-01-23 18:35] LABS: BLOOD UREA NITROGEN 8 mg/dL (7-18)
[2017-01-23 18:42] LABS: ASPARTATE AMINO TRANSFERASE 38 U/L (15-37)
[2017-01-23 18:43] LABS: ACETAMINOPHEN < 2 mcg/mL (10-30)
[2017-01-23 22:12] LABS: DAU SCREEN DISCLAIMER
[2017-01-24 01:18] VITALS: BP 115/72
== END 2017-01-24 02:34 | disposition home or self-care (01) ==
LOC: ED 19:48
DX: F10.120 Alcohol abuse with intoxication, uncomplicated (principal); F17.210 Nicotine dependence, cigarettes, uncomplicated; G40.909 Epilepsy, unspecified, not intractable, without status epilepticus; J44.9 Chronic obstructive pulmonary disease, unspecified
CPT/HCPCS: 36415; 80053; 80307; 80329; 85025; 99284; G0479; G0480

== ENCOUNTER 2017-03-06 18:58 | Emergency (ER) | payer MEDICAID ==
[~2017-03-06] VITALS: Ht 185.4 cm; Wt 72.7 kg
[2017-03-06 19:40] LABS: DAU SCREEN DISCLAIMER
[2017-03-06 19:53] LABS: ASPARTATE AMINO TRANSFERASE 111 U/L (15-37); BLOOD UREA NITROGEN 12 mg/dL (7-18)
[2017-03-06 19:55] LABS: HEMATOCRIT 43.7 % (39.2-51.8); HEMOGLOBIN 14.7 g/dL (13.7-18.0); WHITE BLOOD COUNT 5.6 x10^3/uL (3.4-10)
[2017-03-06 20:00] LABS: ACETAMINOPHEN < 2 mcg/mL (10-30)
[2017-03-06] MEDS ORDERED: ONDANSETRON ODT 4 MG PO ONE (20:30)
[2017-03-06] MEDS ORDERED: ONDANSETRON ODT 4 MG ONE (20:43)
[2017-03-06 20:52] VITALS: BP 124/78
== END 2017-03-06 20:54 | disposition home or self-care (01) ==
LOC: ED 19:38
DX: F32.9 Major depressive disorder, single episode, unspecified (principal); F10.229 Alcohol dependence with intoxication, unspecified; G40.909 Epilepsy, unspecified, not intractable, without status epilepticus; J44.9 Chronic obstructive pulmonary disease, unspecified
CPT/HCPCS: 36415; 80053; 80307; 80329; 85025; 99284; Q0162; G0479; G0480

== ENCOUNTER 2017-03-09 23:53 | Emergency (ER) | payer MEDICAID ==
[~2017-03-09] VITALS: Ht 185.4 cm; Wt 74.7 kg
[2017-03-09 23:55] VITALS: BP 118/79
[2017-03-11] MEDS ORDERED: QUET400T4 PO (15:10)
== END 2017-03-10 00:52 | disposition home or self-care (01) ==
LOC: ED 23:59
DX: F10.220 Alcohol dependence with intoxication, uncomplicated (principal); F12.10 Cannabis abuse, uncomplicated; J44.9 Chronic obstructive pulmonary disease, unspecified; G40.909 Epilepsy, unspecified, not intractable, without status epilepticus; B19.20 Unspecified viral hepatitis C without hepatic coma
CPT/HCPCS: 99281

== ENCOUNTER 2017-03-11 13:21 | Emergency (ER) | payer MEDICAID ==
[~2017-03-11] VITALS: Ht 185.4 cm; Wt 75.0 kg
[2017-03-11] MEDS ORDERED: QUET400T4 PO (15:10)
[2017-03-11 15:17] VITALS: BP 127/83
[2017-03-11] MEDS ORDERED: THIAMINE 100MG TABLET PO ONE (16:30)
[2017-03-11] MEDS ORDERED: ONDANSETRON ODT 8 MG PO ONE (16:30)
[2017-03-11] MEDS ORDERED: LORazepam 1MG TABLET PO ONE (16:30)
[2017-03-11] MEDS ORDERED: THIAMINE 100MG TABLET ONE (16:46)
[2017-03-11] MEDS ORDERED: ONDANSETRON ODT 4 MG ONE ×2 (16:46→16:52)
[2017-03-11] MEDS ORDERED: FAMOTIDINE 20 MG TABLET ONE (16:46)
[2017-03-11] MEDS ORDERED: LORazepam 1MG TABLET ONE (16:46)
[2017-03-11 17:05] LABS: HEMATOCRIT 41.6 % (39.2-51.8); HEMOGLOBIN 13.9 g/dL (13.7-18.0); WHITE BLOOD COUNT 6.3 x10^3/uL (3.4-10)
[2017-03-11 17:14] LABS: ASPARTATE AMINO TRANSFERASE 48 U/L (15-37); BLOOD UREA NITROGEN 13 mg/dL (7-18)
[2017-03-11 17:21] LABS: IS PT STATUS REG ER OR PRE ER? YES
[2017-03-11] MEDS ORDERED: FAMOTIDINE 20 MG TABLET PO ONE (21:00)
== END 2017-03-11 18:13 | disposition home or self-care (01) ==
LOC: ED 16:19
DX: K52.9 Noninfective gastroenteritis and colitis, unspecified (principal); F10.10 Alcohol abuse, uncomplicated; G40.909 Epilepsy, unspecified, not intractable, without status epilepticus; F31.9 Bipolar disorder, unspecified
CPT/HCPCS: 36415; 80053; 83690; 84484; 85025; 93005; 99285; Q0162

== ENCOUNTER 2017-03-13 17:13 | Emergency (ER) | payer MEDICAID ==
[~2017-03-13] VITALS: Ht 185.4 cm; Wt 73.0 kg
[2017-03-13 19:13] LABS: HEMATOCRIT 39.7 % (39.2-51.8); HEMOGLOBIN 13.4 g/dL (13.7-18.0); WHITE BLOOD COUNT 4.5 x10^3/uL (3.4-10)
[2017-03-13 19:22] LABS: BLOOD UREA NITROGEN 7 mg/dL (7-18)
[2017-03-13 19:23] LABS: ACETAMINOPHEN < 2 mcg/mL (10-30)
[2017-03-13 19:28] LABS: DAU SCREEN DISCLAIMER
[2017-03-14 00:22] VITALS: BP 138/81
== END 2017-03-14 00:24 | disposition home or self-care (01) ==
LOC: ED 18:58
DX: F10.220 Alcohol dependence with intoxication, uncomplicated (principal); R45.851 Suicidal ideations; F32.9 Major depressive disorder, single episode, unspecified; J44.9 Chronic obstructive pulmonary disease, unspecified; Y90.9 Presence of alcohol in blood, level not specified; Z90.89 Acquired absence of other organs; Z79.899 Other long term (current) drug therapy
CPT/HCPCS: 36415; 80048; 80307; 80329; 82040; 85025; 99284; G0479; G0480

== ENCOUNTER 2017-04-06 21:47 | Emergency (ER) | payer MEDICAID ==
[~2017-04-06] VITALS: Ht 185.4 cm; Wt 81.0 kg
[2017-04-06] MEDS ORDERED: ZIPRASIDONE 20MG CAPSULE ONE (22:16)
[2017-04-06] MEDS ORDERED: PLEASE ENTER HEIGHT AND WEIGHT MC SCH (22:30)
[2017-04-06] MEDS ORDERED: ZIPRASIDONE 40MG CAPSULE PO ONE (22:30)
[2017-04-06 23:04] VITALS: BP 148/71
== END 2017-04-07 00:16 ==
LOC: ED 22:38
DX: F41.1 Generalized anxiety disorder (principal); F22 Delusional disorders; G40.909 Epilepsy, unspecified, not intractable, without status epilepticus; J44.9 Chronic obstructive pulmonary disease, unspecified; F10.10 Alcohol abuse, uncomplicated; F15.10 Other stimulant abuse, uncomplicated; Z59.0 Homelessness
CPT/HCPCS: 99284

== ENCOUNTER 2017-04-16 17:13 | Emergency (ER) | payer MEDICAID ==
[~2017-04-16] VITALS: Ht 185.4 cm; Wt 75.0 kg
[2017-04-16 17:54] VITALS: BP 153/107
[2017-04-16] MEDS ORDERED: ONDANSETRON 2MG/ML, 2ML IVPush ONE (18:00)
[2017-04-16] MEDS ORDERED: SODIUM CHLORIDE 0.9% 1,000ML IVBOLUS ONE (18:00)
[2017-04-16] MEDS ORDERED: THIAMINE 100MG TABLET PO ONE (18:00)
[2017-04-16] MEDS ORDERED: LORazepam 2 MG/ML, 1ML IVPush ONE (18:00)
[2017-04-16 18:46] LABS: BASOPHILS # (AUTO) 0.09 x10^3/uL (0-0.1); BASOPHILS % (AUTO) 1 % (0-1); EOSINOPHILS # (AUTO) 0.05 x10^3/uL (0-0.4); EOSINOPHILS % (AUTO) 1 % (1-7); LYMPHOCYTES # (AUTO) 1.61 x10^3/uL (1-3.4); LYMPHOCYTES % (AUTO) 22 % (22-44); MD NO; MEAN CORPUSCULAR HEMOGLOBIN 29.2 pg (27.5-34.5); MEAN CORPUSCULAR VOLUME 88.6 fL (81-97); MEAN PLATELET VOLUME 8.7 fL (7.4-10.4); MONOCYTES # (AUTO) 0.45 x10^3/uL (0.2-0.8); MONOCYTES % (AUTO) 6 % (2-9); NEUTROPHILS # (AUTO) 5.27 x10^3/uL (1.8-6.8); NEUTROPHILS % (AUTO) 71 % (42-75); PLATELET COUNT 290 x10^3/uL (130-400); RED BLOOD COUNT 4.94 x10^6/uL (4.38-5.82); RED CELL DISTRIBUTION WIDTH 17.4 % (9.4-14.8)
[2017-04-16 18:55] LABS: ACETAMINOPHEN < 2 mcg/mL (10-30); ANION GAP 10 mmol/L (5-15); CHLORIDE 105 mmol/L (98-107); CREATININE 0.89 mg/dL (0.7-1.3); SALICYLATE LEVEL < 1.7 mg/dL (2.8-20.0)
[2017-04-16] MEDS ORDERED: LORazepam 2 MG/ML, 1ML ONE (19:06)
[2017-04-16] MEDS ORDERED: ONDANSETRON 2MG/ML, 2ML ONE (19:06)
[2017-04-16] MEDS ORDERED: THIAMINE 100MG TABLET ONE (19:06)
== END 2017-04-16 19:49 | disposition home or self-care (01) ==
LOC: ED 18:48
DX: F10.239 Alcohol dependence with withdrawal, unspecified (principal); J44.9 Chronic obstructive pulmonary disease, unspecified
CPT/HCPCS: 36415; 80048; 80307; 80329; 82040; 85025; 96361; 96374; 96375; 99284; J2060; J2405; J7030; G0480

== ENCOUNTER 2017-04-23 20:50 | Emergency (ER) | payer MEDICAID ==
[~2017-04-23] VITALS: Ht 185.4 cm; Wt 75.0 kg
[2017-04-23 21:56] LABS: AMPHETAMINE SCREEN, URINE Negative (Negative); BARBITURATE SCREEN, URINE Negative (Negative); BENZODIAZEPINE SCREEN, URINE Negative (Negative); CANNABINOID SCREEN, URINE Negative (Negative); COCAINE SCREEN, URINE Negative (Negative); METHADONE SCREEN, URINE Negative (Negative); OPIATE SCREEN, URINE Negative (Negative)
[2017-04-23 22:03] LABS: BASOPHILS # (AUTO) 0.09 x10^3/uL (0-0.1); BASOPHILS % (AUTO) 1 % (0-1); EOSINOPHILS # (AUTO) 0.09 x10^3/uL (0-0.4); EOSINOPHILS % (AUTO) 2 % (1-7); LYMPHOCYTES # (AUTO) 1.74 x10^3/uL (1-3.4); LYMPHOCYTES % (AUTO) 28 % (22-44); MD NO; MEAN CORPUSCULAR HEMOGLOBIN 29.3 pg (27.5-34.5); MEAN CORPUSCULAR HGB CONC 33.5 g/dL (33.2-36.2); MEAN CORPUSCULAR VOLUME 87.4 fL (81-97); MEAN PLATELET VOLUME 8.4 fL (7.4-10.4); MONOCYTES # (AUTO) 0.26 x10^3/uL (0.2-0.8); MONOCYTES % (AUTO) 4 % (2-9); NEUTROPHILS # (AUTO) 4.09 x10^3/uL (1.8-6.8); NEUTROPHILS % (AUTO) 65 % (42-75); PLATELET COUNT 220 x10^3/uL (130-400); RED BLOOD COUNT 4.88 x10^6/uL (4.38-5.82); RED CELL DISTRIBUTION WIDTH 17.8 % (9.4-14.8)
[2017-04-23 22:16] LABS: ALBUMIN 3.6 g/dL (3.4-5.0); ANION GAP 10 mmol/L (5-15); CALCIUM 8.3 mg/dL (8.5-10.1); CHLORIDE 108 mmol/L (98-107)
[2017-04-23 22:17] LABS: SALICYLATE LEVEL < 1.7 mg/dL (2.8-20.0)
[2017-04-23 22:18] LABS: ACETAMINOPHEN < 2 mcg/mL (10-30); CREATININE 0.76 mg/dL (0.7-1.3)
[2017-04-24 02:35] VITALS: BP 115/75
== END 2017-04-24 03:15 | disposition home or self-care (01) ==
LOC: ED 21:57
DX: F10.220 Alcohol dependence with intoxication, uncomplicated (principal); Z72.89 Other problems related to lifestyle; J44.9 Chronic obstructive pulmonary disease, unspecified; F31.9 Bipolar disorder, unspecified; F41.1 Generalized anxiety disorder; Z59.0 Homelessness
CPT/HCPCS: 36415; 80048; 80307; 80329; 82040; 85025; 93005; 99285; G0479; G0480

== ENCOUNTER 2017-04-24 18:08 | Emergency (ER) | payer MEDICAID ==
[~2017-04-24] VITALS: Ht 185.4 cm; Wt 75.0 kg
[2017-04-24] MEDS ORDERED: PROMETHAZINE 25 MG/ML, 1ML ONE (19:12)
[2017-04-24 19:14] LABS: BASOPHILS # (AUTO) 0.01 x10^3/uL (0-0.1); BASOPHILS % (AUTO) 0 % (0-1); EOSINOPHILS # (AUTO) 0.01 x10^3/uL (0-0.4); EOSINOPHILS % (AUTO) 0 % (1-7); LYMPHOCYTES # (AUTO) 1.19 x10^3/uL (1-3.4); LYMPHOCYTES % (AUTO) 23 % (22-44); MD NO; MEAN CORPUSCULAR HEMOGLOBIN 29.3 pg (27.5-34.5); MEAN CORPUSCULAR HGB CONC 33.4 g/dL (33.2-36.2); MEAN CORPUSCULAR VOLUME 87.6 fL (81-97); MEAN PLATELET VOLUME 8.5 fL (7.4-10.4); MONOCYTES # (AUTO) 0.39 x10^3/uL (0.2-0.8); MONOCYTES % (AUTO) 7 % (2-9); NEUTROPHILS # (AUTO) 3.64 x10^3/uL (1.8-6.8); NEUTROPHILS % (AUTO) 69 % (42-75); PLATELET COUNT 247 x10^3/uL (130-400); RED BLOOD COUNT 4.96 x10^6/uL (4.38-5.82); RED CELL DISTRIBUTION WIDTH 17.8 % (9.4-14.8)
[2017-04-24 19:24] LABS: ALBUMIN 3.8 g/dL (3.4-5.0); ANION GAP 11 mmol/L (5-15); CALCIUM 8.8 mg/dL (8.5-10.1); CHLORIDE 102 mmol/L (98-107); CREATININE 0.86 mg/dL (0.7-1.3)
[2017-04-24 19:28] LABS: TROPONIN I < 0.015 ng/mL (0.000-0.045)
[2017-04-24] MEDS ORDERED: PROMETHAZINE 25 MG/ML, 1ML IM ONE (19:30)
[2017-04-24 20:37] VITALS: BP 135/71
== END 2017-04-24 20:39 | disposition home or self-care (01) ==
LOC: ED 18:32
DX: R07.89 Other chest pain (principal); F10.120 Alcohol abuse with intoxication, uncomplicated; F32.0 Major depressive disorder, single episode, mild; J44.9 Chronic obstructive pulmonary disease, unspecified; G40.909 Epilepsy, unspecified, not intractable, without status epilepticus; F20.9 Schizophrenia, unspecified; F15.90 Other stimulant use, unspecified, uncomplicated; Z87.891 Personal history of nicotine dependence
CPT/HCPCS: 36415; 71045; 80048; 80307; 82040; 84484; 85025; 93005; 96372; 99285; J2550

== ENCOUNTER 2017-06-29 18:26 | Emergency (ER) | payer MEDICAID ==
[~2017-06-29] VITALS: Ht 185.4 cm; Wt 72.4 kg
[2017-06-29] MEDS ORDERED: RISP0.2518 PO (18:53)
[2017-06-29] MEDS ORDERED: PROMETHAZINE 25 MG/ML, 1ML IM ONE (19:00)
[2017-06-29] MEDS ORDERED: PROMETHAZINE 25 MG/ML, 1ML ONE (19:01)
[2017-06-29 19:17] LABS: BASOPHILS # (AUTO) 0.06 x10^3/uL (0-0.1); BASOPHILS % (AUTO) 1 % (0-1); EOSINOPHILS # (AUTO) 0.12 x10^3/uL (0-0.4); EOSINOPHILS % (AUTO) 2 % (1-7); LYMPHOCYTES # (AUTO) 2.29 x10^3/uL (1-3.4); LYMPHOCYTES % (AUTO) 36 % (22-44); MD NO; MEAN CORPUSCULAR HGB CONC 34.2 g/dL (33.2-36.2); MEAN CORPUSCULAR VOLUME 90.6 fL (81-97); MEAN PLATELET VOLUME 8.1 fL (7.4-10.4); MONOCYTES # (AUTO) 0.42 x10^3/uL (0.2-0.8); MONOCYTES % (AUTO) 7 % (2-9); NEUTROPHILS # (AUTO) 3.47 x10^3/uL (1.8-6.8); NEUTROPHILS % (AUTO) 55 % (42-75); PLATELET COUNT 239 x10^3/uL (130-400); RED BLOOD COUNT 4.47 x10^6/uL (4.38-5.82); RED CELL DISTRIBUTION WIDTH 16.6 % (9.4-14.8)
[2017-06-29 19:25] LABS: ALBUMIN 3.6 g/dL (3.4-5.0); ANION GAP 11 mmol/L (5-15); CALCIUM 7.8 mg/dL (8.5-10.1); CHLORIDE 104 mmol/L (98-107)
[2017-06-29 19:27] LABS: CREATININE 0.87 mg/dL (0.7-1.3)
[2017-06-29 19:31] LABS: ACETAMINOPHEN < 2 mcg/mL (10-30); SALICYLATE LEVEL < 1.7 mg/dL (2.8-20.0)
[2017-06-29 19:42] LABS: AMPHETAMINE SCREEN, URINE Negative (Negative); BARBITURATE SCREEN, URINE Negative (Negative); BENZODIAZEPINE SCREEN, URINE Negative (Negative); CANNABINOID SCREEN, URINE Negative (Negative); METHADONE SCREEN, URINE Negative (Negative); OPIATE SCREEN, URINE Negative (Negative)
[2017-06-29 19:48] LABS: COCAINE SCREEN, URINE Negative (Negative)
[2017-06-29 22:10] VITALS: BP 120/73
== END 2017-06-30 00:28 | disposition home or self-care (01) ==
LOC: ED 20:53
DX: R45.851 Suicidal ideations (principal); F10.220 Alcohol dependence with intoxication, uncomplicated; F33.1 Major depressive disorder, recurrent, moderate; F20.9 Schizophrenia, unspecified; J44.9 Chronic obstructive pulmonary disease, unspecified
CPT/HCPCS: 36415; 80048; 80307; 80329; 82040; 85025; 96372; 99284; J2550; G0480

== ENCOUNTER 2017-07-11 15:56 | Inpatient (IN) | payer MEDICAID ==
[~2017-07-11] VITALS: Ht 185.4 cm; Wt 70.0 kg
[~2017-07-11 15:56] MED LIST changes: +RISP0.2518 PO
[2017-07-11 16:31] LABS: BASOPHILS # (AUTO) 0.05 x10^3/uL (0-0.1); BASOPHILS % (AUTO) 1 % (0-1); EOSINOPHILS # (AUTO) 0.02 x10^3/uL (0-0.4); EOSINOPHILS % (AUTO) 0 % (1-7); LYMPHOCYTES # (AUTO) 1.12 x10^3/uL (1-3.4); LYMPHOCYTES % (AUTO) 10 % (22-44); MD NO; MEAN CORPUSCULAR HEMOGLOBIN 30.9 pg (27.5-34.5); MEAN CORPUSCULAR HGB CONC 33.9 g/dL (33.2-36.2); MEAN CORPUSCULAR VOLUME 90.9 fL (81-97); MEAN PLATELET VOLUME 7.7 fL (7.4-10.4); MONOCYTES # (AUTO) 1.07 x10^3/uL (0.2-0.8); MONOCYTES % (AUTO) 10 % (2-9); NEUTROPHILS # (AUTO) 8.76 x10^3/uL (1.8-6.8); NEUTROPHILS % (AUTO) 80 % (42-75); PLATELET COUNT 315 x10^3/uL (130-400); RED BLOOD COUNT 4.45 x10^6/uL (4.38-5.82); RED CELL DISTRIBUTION WIDTH 17.3 % (9.4-14.8)
[2017-07-11 16:42] LABS: ALBUMIN 3.3 g/dL (3.4-5.0); ANION GAP 11 mmol/L (5-15); CALCIUM 8.4 mg/dL (8.5-10.1); CHLORIDE 101 mmol/L (98-107)
[2017-07-11 16:43] LABS: CREATININE 0.83 mg/dL (0.7-1.3)
[2017-07-11] MEDS ORDERED: CEFTRIAXONE PMX 1GM/50ML 50 ML IVPB ONE (18:00)
[2017-07-11] MEDS ORDERED: SODIUM CHLORIDE FLUSH 10ML SYR IVF ONE (18:00)
[2017-07-11] MEDS ORDERED: CEFTRIAXONE PMX 1GM/50ML 50 ML ONE (18:36)
[2017-07-11] MEDS ORDERED: SODIUM CHLORIDE FLUSH 10ML SYR IVF PRN (19:00)
[2017-07-11] MEDS ORDERED: ACETAMINOPHEN 325 MG TABLET PO PRN (19:30)
[2017-07-11] MEDS ORDERED: DIPHENHYDRAMINE 25 MG CAPSULE PO PRN (19:30)
[2017-07-11] MEDS ORDERED: hydrALAzine 20 MG/ML, 1ML IVPush PRN (19:30)
[2017-07-11] MEDS ORDERED: DOCUSATE 100 MG CAPSULE PO PRN (19:30)
[2017-07-11] MEDS ORDERED: LORazepam 1MG TABLET PO PRN (20:00)
[2017-07-11] MEDS ORDERED: QUETIAPINE 200 MG TABLET PO SCH ×2 (21:00→21:50)
[2017-07-11 21:10] VITALS: BP 135/76
[2017-07-11] MEDS: ONDANSETRON ODT 4 MG PO PRN (21:59)
[2017-07-12 02:52] VITALS: BP 90/55
[2017-07-12 08:28] VITALS: BP 124/92
[2017-07-12 08:29] LABS: ANION GAP 8 mmol/L (5-15); CALCIUM 8.3 mg/dL (8.5-10.1); CHLORIDE 105 mmol/L (98-107); CREATININE 0.86 mg/dL (0.7-1.3)
[2017-07-12] MEDS ORDERED: VANCOMYCIN PER PHARMACY MC PRN (08:30)
[2017-07-12] MEDS ORDERED: PHARMACOKINETIC MONITORING MC PRN (09:00)
[2017-07-12] MEDS ORDERED: PHARMACOKINETIC CONSULTATION MC ONE (09:00)
[2017-07-12] MEDS ORDERED: RISPERIDONE 0.5 MG TABLET PO SCH (09:00)
[2017-07-12] MEDS: SODIUM CHLORIDE 0.9% 1,000 ML IV SCH (09:09)
[2017-07-12] MEDS: AMPICILLIN/SULBACTAM 3 GM in SODIUM CHLORIDE 0.9% 100 ML IV SCH ×3 (09:10→20:41)
[2017-07-12] MEDS: BACLOFEN 10 MG TABLET PO SCH ×3 (09:41→20:41)
[2017-07-12] MEDS: FLUOXETINE HCL 20 MG CAPSULE PO SCH (09:42)
[2017-07-12 09:54] LABS: BASOPHILS # (AUTO) 0.01 x10^3/uL (0-0.1); BASOPHILS % (AUTO) 0 % (0-1); EOSINOPHILS # (AUTO) 0.13 x10^3/uL (0-0.4); EOSINOPHILS % (AUTO) 2 % (1-7); LYMPHOCYTES # (AUTO) 0.67 x10^3/uL (1-3.4); LYMPHOCYTES % (AUTO) 11 % (22-44); MD NO; MEAN CORPUSCULAR HEMOGLOBIN 30.3 pg (27.5-34.5); MEAN CORPUSCULAR HGB CONC 33.3 g/dL (33.2-36.2); MEAN CORPUSCULAR VOLUME 91.1 fL (81-97); MEAN PLATELET VOLUME 7.4 fL (7.4-10.4); MONOCYTES # (AUTO) 0.51 x10^3/uL (0.2-0.8); MONOCYTES % (AUTO) 9 % (2-9); NEUTROPHILS # (AUTO) 4.64 x10^3/uL (1.8-6.8); NEUTROPHILS % (AUTO) 78 % (42-75); PLATELET COUNT 262 x10^3/uL (130-400); RED BLOOD COUNT 4.14 x10^6/uL (4.38-5.82); RED CELL DISTRIBUTION WIDTH 17.4 % (9.4-14.8)
[2017-07-12] MEDS: ONDANSETRON ODT 4 MG PO PRN ×2 (11:01→16:39)
[2017-07-12] MEDS: VANCOMYCIN 1,400 MG in SODIUM CHLORIDE 0.9% 250 ML IV SCH ×2 (11:02→21:33)
[2017-07-12 13:25] VITALS: BP 122/79
[2017-07-12 18:57] VITALS: BP 111/71
[2017-07-12] MEDS: QUETIAPINE 400 MG PO SCH (20:41)
[2017-07-13] MEDS: SODIUM CHLORIDE 0.9% 1,000 ML IV SCH
[2017-07-13] MEDS: AMPICILLIN/SULBACTAM 3 GM in SODIUM CHLORIDE 0.9% 100 ML IV SCH ×4 (03:08→20:04)
[2017-07-13 03:18] VITALS: BP 122/76
[2017-07-13 07:20] VITALS: BP 103/68
[2017-07-13] MEDS: FLUOXETINE HCL 20 MG CAPSULE PO SCH (08:41)
[2017-07-13] MEDS: BACLOFEN 10 MG TABLET PO SCH ×3 (08:41→20:04)
[2017-07-13] MEDS: VANCOMYCIN 1,400 MG in SODIUM CHLORIDE 0.9% 250 ML IV SCH ×2 (09:53→21:13)
[2017-07-13 13:20] VITALS: BP 114/70
[2017-07-13] MEDS: ONDANSETRON ODT 4 MG PO PRN (15:53)
[2017-07-13 19:18] VITALS: BP 126/78
[2017-07-13] MEDS: QUETIAPINE 400 MG PO SCH (20:04)
[2017-07-14 01:26] VITALS: BP 118/72
[2017-07-14] MEDS: AMPICILLIN/SULBACTAM 3 GM in SODIUM CHLORIDE 0.9% 100 ML IV SCH ×2 (02:46→08:40)
[2017-07-14 05:31] LABS: MEAN CORPUSCULAR HEMOGLOBIN 31.1 pg (27.5-34.5); MEAN CORPUSCULAR HGB CONC 33.4 g/dL (33.2-36.2); PLATELET COUNT 312 x10^3/uL (130-400); RED BLOOD COUNT 4.21 x10^6/uL (4.38-5.82); RED CELL DISTRIBUTION WIDTH 16.7 % (9.4-14.8)
[2017-07-14 05:37] LABS: ANION GAP 7 mmol/L (5-15); CALCIUM 8.1 mg/dL (8.5-10.1); CHLORIDE 107 mmol/L (98-107)
[2017-07-14 05:38] LABS: CREATININE 0.84 mg/dL (0.7-1.3)
[2017-07-14 06:01] LABS: BASOPHILS # (AUTO) 0.05 x10^3/uL (0-0.1); BASOPHILS % (AUTO) 1 % (0-1); EOSINOPHILS # (AUTO) 0.33 x10^3/uL (0-0.4); EOSINOPHILS % (AUTO) 7 % (1-7); LYMPHOCYTES # (AUTO) 1.94 x10^3/uL (1-3.4); LYMPHOCYTES % (AUTO) 42 % (22-44); MD SCAN; MONOCYTES # (AUTO) 0.42 x10^3/uL (0.2-0.8); MONOCYTES % (AUTO) 9 % (2-9); NEUTROPHILS # (AUTO) 1.82 x10^3/uL (1.8-6.8); NEUTROPHILS % (AUTO) 40 % (42-75)
[2017-07-14 07:00] VITALS: BP 113/77
[2017-07-14] MEDS: FLUOXETINE HCL 20 MG CAPSULE PO SCH (08:37)
[2017-07-14] MEDS: ONDANSETRON ODT 4 MG PO PRN (08:37)
[2017-07-14] MEDS: BACLOFEN 10 MG TABLET PO SCH (08:37)
[2017-07-14] MEDS ORDERED: SULF1TAB24 PO (08:38)
[2017-07-14] MEDS: VANCOMYCIN 1,400 MG in SODIUM CHLORIDE 0.9% 250 ML IV SCH (09:20)
== END 2017-07-14 13:43 | disposition home or self-care (01) | DRG 603 ==
LOC: ED 18:26 → EDIP 18:40 → 3NE 21:10
PROVIDERS: ADMIT Hospitalist; ATTEND Hospitalist
DX: L03.031 Cellulitis of right toe (principal); E44.1 Mild protein-calorie malnutrition; E87.1 Hypo-osmolality and hyponatremia; F10.20 Alcohol dependence, uncomplicated; F17.200 Nicotine dependence, unspecified, uncomplicated; Z59.0 Homelessness; F32.9 Major depressive disorder, single episode, unspecified; Z68.20 Body mass index [BMI] 20.0-20.9, adult
CPT/HCPCS: 36415; 80048; 80202; 82040; 83605; 85025; 87040; 93970; 96365; J0295; J0696; J3370; Q0162; J7030; J7050

== ENCOUNTER 2017-07-18 21:01 | Emergency (ER) | payer MEDICAID ==
[~2017-07-18] VITALS: Ht 185.4 cm; Wt 71.1 kg
[~2017-07-18 21:01] MED LIST changes: +SULF1TAB24 PO
[2017-07-18] MEDS ORDERED: LORazepam 1MG TABLET ONE (21:54)
[2017-07-18] MEDS ORDERED: ONDANSETRON ODT 8 MG ONE (21:54)
[2017-07-18] MEDS ORDERED: ONDANSETRON ODT 8 MG PO ONE (22:00)
[2017-07-18] MEDS ORDERED: LORazepam 1MG TABLET PO ONE (22:00)
[2017-07-18 22:01] LABS: BASOPHILS # (AUTO) 0.11 x10^3/uL (0-0.1); BASOPHILS % (AUTO) 2 % (0-1); EOSINOPHILS % (AUTO) 2 % (1-7); LYMPHOCYTES # (AUTO) 2.67 x10^3/uL (1-3.4); LYMPHOCYTES % (AUTO) 46 % (22-44); MD NO; MEAN CORPUSCULAR HEMOGLOBIN 30.2 pg (27.5-34.5); MEAN CORPUSCULAR HGB CONC 33.4 g/dL (33.2-36.2); MEAN CORPUSCULAR VOLUME 90.4 fL (81-97); MEAN PLATELET VOLUME 7.2 fL (7.4-10.4); MONOCYTES # (AUTO) 0.17 x10^3/uL (0.2-0.8); MONOCYTES % (AUTO) 3 % (2-9); NEUTROPHILS # (AUTO) 2.78 x10^3/uL (1.8-6.8); NEUTROPHILS % (AUTO) 48 % (42-75); PLATELET COUNT 458 x10^3/uL (130-400); RED BLOOD COUNT 4.56 x10^6/uL (4.38-5.82); RED CELL DISTRIBUTION WIDTH 17.2 % (9.4-14.8)
[2017-07-18 22:11] LABS: ALBUMIN 3.3 g/dL (3.4-5.0); ANION GAP 9 mmol/L (5-15); CALCIUM 8.2 mg/dL (8.5-10.1); CHLORIDE 107 mmol/L (98-107)
[2017-07-18 22:15] LABS: ALANINE AMINOTRANSFERASE 46 U/L (12-78); ALKALINE PHOSPHATASE 167 U/L (45-117); BILIRUBIN,TOTAL 0.3 mg/dL (0.2-1.0); CREATININE 0.91 mg/dL (0.7-1.3); TOTAL PROTEIN 7.9 g/dL (6.4-8.2)
[2017-07-18 22:21] LABS: MICROSCOPIC NOT IND
[2017-07-18 22:28] LABS: CULTURE INDICATED? NO
[2017-07-18 23:15] VITALS: BP 132/80
== END 2017-07-18 23:20 | disposition home or self-care (01) ==
LOC: ED 22:14
DX: K29.20 Alcoholic gastritis without bleeding (principal); F10.20 Alcohol dependence, uncomplicated; F20.9 Schizophrenia, unspecified; J44.9 Chronic obstructive pulmonary disease, unspecified; F31.9 Bipolar disorder, unspecified; G40.909 Epilepsy, unspecified, not intractable, without status epilepticus; Z72.89 Other problems related to lifestyle; Z60.9 Problem related to social environment, unspecified; Z91.14 Patient's other noncompliance with medication regimen
CPT/HCPCS: 36415; 80053; 80307; 81003; 83690; 85025; 99284; Q0162

== ENCOUNTER 2017-09-04 19:18 | Emergency (ER) | payer MEDICAID ==
[~2017-09-04] VITALS: Ht 185.4 cm; Wt 71.5 kg
[2017-09-04 19:52] LABS: MEAN CORPUSCULAR HEMOGLOBIN 31.3 pg (27.5-34.5); MEAN CORPUSCULAR HGB CONC 33.2 g/dL (33.2-36.2); MEAN CORPUSCULAR VOLUME 94.3 fL (81-97); MEAN PLATELET VOLUME 9.2 fL (7.4-10.4); PLATELET COUNT 213 x10^3/uL (130-400); RED BLOOD COUNT 5.62 x10^6/uL (4.38-5.82); RED CELL DISTRIBUTION WIDTH 15.9 % (9.4-14.8)
[2017-09-04] MEDS ORDERED: METOCLOPRAMIDE 5 MG/ML, 2ML ONE (19:54)
[2017-09-04] MEDS ORDERED: ONDA4TAB10 PO (19:56)
[2017-09-04] MEDS ORDERED: FAMOTIDINE 20 MG/2 ML ONE (19:57)
[2017-09-04 19:59] LABS: BASOPHILS # (AUTO) 0.02 x10^3/uL (0-0.1); BASOPHILS % (AUTO) 0 % (0-1); EOSINOPHILS # (AUTO) 0.13 x10^3/uL (0-0.4); EOSINOPHILS % (AUTO) 1 % (1-7); LYMPHOCYTES # (AUTO) 1.76 x10^3/uL (1-3.4); LYMPHOCYTES % (AUTO) 16 % (22-44); MD NO; MONOCYTES % (AUTO) 4 % (2-9); NEUTROPHILS # (AUTO) 8.85 x10^3/uL (1.8-6.8); NEUTROPHILS % (AUTO) 79 % (42-75)
[2017-09-04] MEDS ORDERED: SODIUM CHLORIDE 0.9% 1,000ML IVBOLUS ONE ×3 (20:00→20:30)
[2017-09-04] MEDS ORDERED: FAMOTIDINE 20 MG/2 ML IVP ONE (20:00)
[2017-09-04] MEDS ORDERED: METOCLOPRAMIDE 5 MG/ML, 2ML IVPush ONE (20:00)
[2017-09-04] MEDS ORDERED: SODIUM CHLORIDE FLUSH 10ML SYR IVF ONE (20:00)
[2017-09-04 20:04] LABS: ALANINE AMINOTRANSFERASE 46 U/L (12-78); ALBUMIN 4.6 g/dL (3.4-5.0); ANION GAP 14 mmol/L (5-15); CALCIUM 9.1 mg/dL (8.5-10.1); CHLORIDE 103 mmol/L (98-107); CREATININE 1.85 mg/dL (0.7-1.3)
[2017-09-04 20:07] LABS: ALKALINE PHOSPHATASE 106 U/L (45-117); BILIRUBIN,TOTAL 0.4 mg/dL (0.2-1.0); TOTAL PROTEIN 9.2 g/dL (6.4-8.2)
[2017-09-04 21:13] VITALS: BP 98/62
[2017-09-04 21:24] LABS: MICROSCOPIC INDICATED
[2017-09-04 21:30] LABS: CULTURE INDICATED? NO
== END 2017-09-04 21:32 | disposition home or self-care (01) ==
LOC: ED 21:15
DX: K52.9 Noninfective gastroenteritis and colitis, unspecified (principal); J44.9 Chronic obstructive pulmonary disease, unspecified; Z86.19 Personal history of other infectious and parasitic diseases
CPT/HCPCS: 36415; 74021; 80053; 81001; 83690; 85025; 93005; 96374; 96375; 99285; J2765; J7030; S0028

== ENCOUNTER 2017-09-07 12:26 | Emergency (ER) | payer MEDICAID ==
[~2017-09-07] VITALS: Ht 185.4 cm; Wt 70.9 kg
[~2017-09-07 12:26] MED LIST changes: +ONDA4TAB10 PO
[2017-09-07] MEDS ORDERED: QUETIAPINE 100MG TABLET ONE (13:21)
[2017-09-07 13:23] VITALS: BP 132/81
[2017-09-07] MEDS: QUETIAPINE 100MG TABLET PO ONE ×2 (13:23→13:24)
[2017-09-07 13:36] LABS: BASOPHILS # (AUTO) 0.02 x10^3/uL (0-0.1); BASOPHILS % (AUTO) 0 % (0-1); EOSINOPHILS # (AUTO) 0.35 x10^3/uL (0-0.4); EOSINOPHILS % (AUTO) 5 % (1-7); LYMPHOCYTES # (AUTO) 1.17 x10^3/uL (1-3.4); LYMPHOCYTES % (AUTO) 17 % (22-44); MD NO; MEAN CORPUSCULAR HEMOGLOBIN 30.7 pg (27.5-34.5); MEAN PLATELET VOLUME 8.6 fL (7.4-10.4); MONOCYTES # (AUTO) 0.48 x10^3/uL (0.2-0.8); MONOCYTES % (AUTO) 7 % (2-9); NEUTROPHILS # (AUTO) 4.77 x10^3/uL (1.8-6.8); NEUTROPHILS % (AUTO) 70 % (42-75); PLATELET COUNT 218 x10^3/uL (130-400); RED BLOOD COUNT 4.51 x10^6/uL (4.38-5.82); RED CELL DISTRIBUTION WIDTH 16.4 % (9.4-14.8)
[2017-09-07 13:47] LABS: ALANINE AMINOTRANSFERASE 46 U/L (12-78); ALBUMIN 3.8 g/dL (3.4-5.0); ANION GAP 8 mmol/L (5-15); CALCIUM 8.8 mg/dL (8.5-10.1); CHLORIDE 105 mmol/L (98-107); CREATININE 0.85 mg/dL (0.7-1.3)
[2017-09-07 13:50] LABS: ALKALINE PHOSPHATASE 112 U/L (45-117); BILIRUBIN,TOTAL 1.4 mg/dL (0.2-1.0); TOTAL PROTEIN 7.5 g/dL (6.4-8.2)
== END 2017-09-07 14:08 | disposition home or self-care (01) ==
LOC: ED 13:09
DX: R10.84 Generalized abdominal pain (principal); F20.9 Schizophrenia, unspecified; J44.9 Chronic obstructive pulmonary disease, unspecified
CPT/HCPCS: 36415; 80053; 83690; 85025; 99284

== ENCOUNTER 2017-09-13 03:50 | Emergency (ER) | payer MEDICAID ==
[~2017-09-13] VITALS: Ht 172.7 cm; Wt 70.0 kg
[2017-09-13 04:06] VITALS: BP 124/82
== END 2017-09-13 04:40 | disposition home or self-care (01) ==
LOC: ED 04:34
DX: F10.20 Alcohol dependence, uncomplicated (principal); J44.9 Chronic obstructive pulmonary disease, unspecified; Z86.19 Personal history of other infectious and parasitic diseases
CPT/HCPCS: 99283

== ENCOUNTER 2017-09-21 04:09 | Emergency (ER) | payer MEDICAID ==
[~2017-09-21] VITALS: Ht 185.4 cm; Wt 76.1 kg
[2017-09-21 04:11] VITALS: BP 137/91
[2017-09-21] MEDS ORDERED: ONDANSETRON ODT 4 MG ONE (04:33)
[2017-09-21] MEDS ORDERED: ONDANSETRON ODT 4 MG PO ONE (05:00)
== END 2017-09-21 05:13 | disposition home or self-care (01) ==
LOC: ED 05:07
DX: F10.220 Alcohol dependence with intoxication, uncomplicated (principal); K92.0 Hematemesis; R19.7 Diarrhea, unspecified; R11.2 Nausea with vomiting, unspecified; J44.9 Chronic obstructive pulmonary disease, unspecified; Z86.19 Personal history of other infectious and parasitic diseases
CPT/HCPCS: 99283; Q0162

== ENCOUNTER 2017-10-02 03:00 | Emergency (ER) | payer MEDICAID ==
[~2017-10-02] VITALS: Ht 185.4 cm; Wt 70.0 kg
[2017-10-02] MEDS ORDERED: PROMETHAZINE 25 MG/ML, 1ML IM ONE (04:00)
[2017-10-02 04:03] LABS: BASOPHILS # (AUTO) 0.09 x10^3/uL (0-0.1); BASOPHILS % (AUTO) 2 % (0-1); EOSINOPHILS # (AUTO) 0.29 x10^3/uL (0-0.4); EOSINOPHILS % (AUTO) 6 % (1-7); LYMPHOCYTES # (AUTO) 1.69 x10^3/uL (1-3.4); LYMPHOCYTES % (AUTO) 37 % (22-44); MD NO; MEAN CORPUSCULAR HEMOGLOBIN 31.1 pg (27.5-34.5); MEAN CORPUSCULAR HGB CONC 33.3 g/dL (33.2-36.2); MEAN CORPUSCULAR VOLUME 93.5 fL (81-97); MEAN PLATELET VOLUME 7.4 fL (7.4-10.4); MONOCYTES % (AUTO) 9 % (2-9); NEUTROPHILS # (AUTO) 2.06 x10^3/uL (1.8-6.8); NEUTROPHILS % (AUTO) 46 % (42-75); PLATELET COUNT 174 x10^3/uL (130-400); RED BLOOD COUNT 4.34 x10^6/uL (4.38-5.82); RED CELL DISTRIBUTION WIDTH 16.8 % (9.4-14.8)
[2017-10-02 04:05] LABS: ALANINE AMINOTRANSFERASE 64 U/L (12-78); ALBUMIN 3.2 g/dL (3.4-5.0); ANION GAP 5 mmol/L (5-15); CHLORIDE 107 mmol/L (98-107); CREATININE 0.91 mg/dL (0.7-1.3)
[2017-10-02 04:07] LABS: ALKALINE PHOSPHATASE 118 U/L (45-117); BILIRUBIN,TOTAL 0.3 mg/dL (0.2-1.0); TOTAL PROTEIN 6.9 g/dL (6.4-8.2)
[2017-10-02 04:16] VITALS: BP 118/90
== END 2017-10-02 06:00 | disposition home or self-care (01) ==
LOC: ED 04:01
DX: F10.120 Alcohol abuse with intoxication, uncomplicated (principal); K29.20 Alcoholic gastritis without bleeding; J44.9 Chronic obstructive pulmonary disease, unspecified; Z79.899 Other long term (current) drug therapy
CPT/HCPCS: 36415; 80053; 80307; 83690; 85025; 93005; 99285

== ENCOUNTER 2017-10-15 21:06 | Emergency (ER) | payer MEDICAID ==
[~2017-10-15] VITALS: Ht 185.4 cm; Wt 71.9 kg
[2017-10-15 21:07] VITALS: BP 123/83
== END 2017-10-15 23:19 | disposition home or self-care (01) ==
LOC: ED 21:14
DX: F10.220 Alcohol dependence with intoxication, uncomplicated (principal); J44.9 Chronic obstructive pulmonary disease, unspecified; F20.9 Schizophrenia, unspecified
CPT/HCPCS: 99281

== ENCOUNTER 2017-11-27 11:41 | Observation (INO) | payer MEDICAID ==
[~2017-11-27] VITALS: Ht 185.4 cm; Wt 78.0 kg
[~2017-11-27 11:41] MED LIST changes: +QUET400T6 PO; -THIA100T6 PO; +THIA100T67 PO
[2017-11-27 12:17] LABS: BASOPHILS # (AUTO) 0.03 x10^3/uL (0-0.1); BASOPHILS % (AUTO) 1 % (0-1); EOSINOPHILS # (AUTO) 0.02 x10^3/uL (0-0.4); EOSINOPHILS % (AUTO) 0 % (1-7); LYMPHOCYTES # (AUTO) 1.42 x10^3/uL (1-3.4); LYMPHOCYTES % (AUTO) 23 % (22-44); MD NO; MEAN CORPUSCULAR HEMOGLOBIN 31.1 pg (27.5-34.5); MEAN CORPUSCULAR HGB CONC 33.9 g/dL (33.2-36.2); MEAN CORPUSCULAR VOLUME 91.8 fL (81-97); MEAN PLATELET VOLUME 8.6 fL (7.4-10.4); MONOCYTES # (AUTO) 0.44 x10^3/uL (0.2-0.8); MONOCYTES % (AUTO) 7 % (2-9); NEUTROPHILS # (AUTO) 4.16 x10^3/uL (1.8-6.8); NEUTROPHILS % (AUTO) 69 % (42-75); PLATELET COUNT 191 x10^3/uL (130-400); RED BLOOD COUNT 4.89 x10^6/uL (4.38-5.82); RED CELL DISTRIBUTION WIDTH 16.1 % (9.4-14.8)
[2017-11-27 12:28] LABS: ALANINE AMINOTRANSFERASE 48 U/L (12-78); ALBUMIN 3.9 g/dL (3.4-5.0); ANION GAP 4 mmol/L (5-15); CALCIUM 8.9 mg/dL (8.5-10.1); CHLORIDE 105 mmol/L (98-107); CREATININE 0.92 mg/dL (0.7-1.3)
[2017-11-27 12:39] LABS: ALKALINE PHOSPHATASE 99 U/L (45-117); BILIRUBIN,TOTAL 0.8 mg/dL (0.2-1.0); TOTAL PROTEIN 7.9 g/dL (6.4-8.2)
[2017-11-27 12:41] LABS: ACETAMINOPHEN < 2 mcg/mL (10-30); SALICYLATE LEVEL < 1.7 mg/dL (2.8-20.0)
[2017-11-27 14:33] LABS: AMPHETAMINE SCREEN, URINE Negative (Negative); BARBITURATE SCREEN, URINE Negative (Negative); BENZODIAZEPINE SCREEN, URINE Negative (Negative); CANNABINOID SCREEN, URINE Negative (Negative); COCAINE SCREEN, URINE Negative (Negative); METHADONE SCREEN, URINE Negative (Negative); OPIATE SCREEN, URINE Negative (Negative)
[2017-11-27] MEDS ORDERED: ONDANSETRON ODT 4 MG PO PRN (16:30)
[2017-11-27] MEDS ORDERED: BISACODYL 10 MG SUPP PR PRN (16:30)
[2017-11-27] MEDS ORDERED: DOCUSATE 100 MG CAPSULE PO PRN (16:30)
[2017-11-27 17:04] LABS: THYROID STIMULATING HORMONE 1.88 mIU/L (0.358-3.740)
[2017-11-27] MEDS ORDERED: ONDANSETRON ODT 4 MG ONE (17:35)
[2017-11-27 19:55] VITALS: BP 128/77
[2017-11-27] MEDS: LORazepam 1MG TABLET PO PRN (20:37)
[2017-11-27] MEDS ORDERED: TRAZODONE 100MG TABLET PO SCH (21:00)
[2017-11-27] MEDS ORDERED: QUETIAPINE 100MG TABLET PO SCH (21:00)
[2017-11-28 07:28] VITALS: BP 116/79
[2017-11-28] MEDS ORDERED: OMEPRAZOLE 20 MG CAPSULE.DR PO SCH (07:30)
[2017-11-28] MEDS: LORazepam 1MG TABLET PO PRN ×2 (07:49→11:58)
[2017-11-28] MEDS ORDERED: SENNA/DOCUSATE TABLET PO SCH (09:00)
[2017-11-28] MEDS ORDERED: ARIPIPRAZOLE 10 MG TABLET PO SCH (09:00)
[2017-11-28] MEDS ORDERED: FLUOXETINE HCL 20 MG CAPSULE PO SCH (09:00)
[2017-11-28 11:55] VITALS: BP 115/76
== END 2017-11-28 12:19 ==
LOC: ED 15:58 → EDIP 15:59 → ED 16:00 → 2N 19:45
PROVIDERS: ADMIT Internal Medicine; ATTEND Internal Medicine
DX: R45.851 Suicidal ideations (principal); G40.909 Epilepsy, unspecified, not intractable, without status epilepticus; K21.9 Gastro-esophageal reflux disease without esophagitis; F25.9 Schizoaffective disorder, unspecified; F10.20 Alcohol dependence, uncomplicated; F31.9 Bipolar disorder, unspecified
CPT/HCPCS: 36415; 80053; 80307; 80329; 83735; 84100; 84443; 85025; 99285; G0378; Q0162; G0480

== ENCOUNTER 2017-11-28 12:19 | Inpatient (IN) | payer MEDICAID ==
[~2017-11-28] VITALS: Ht 185.4 cm; Wt 73.2 kg
[2017-11-28] MEDS ORDERED: ACETAMINOPHEN 325 MG TABLET PO PRN (12:30)
[2017-11-28 13:46] VITALS: BP 118/84
[2017-11-28 18:11] LABS: MICROSCOPIC NOT IND
[2017-11-28 18:21] LABS: CULTURE INDICATED? NO
[2017-11-28] MEDS: LORazepam 1MG TABLET PO PRN (18:28)
[2017-11-28] MEDS: ENOXAPARIN 40 MG/0.4 ML SQ SCH (18:30)
[2017-11-28 19:44] VITALS: BP 112/77
[2017-11-28] MEDS: QUETIAPINE 100MG TABLET PO SCH (20:32)
[2017-11-28] MEDS: TRAZODONE 100MG TABLET PO SCH (20:32)
[2017-11-29 05:14] LABS: ANION GAP 6 mmol/L (5-15); CALCIUM 8.5 mg/dL (8.5-10.1); CHLORIDE 105 mmol/L (98-107)
[2017-11-29 05:43] LABS: CHOL/HDL RATIO 2.3; CHOLESTEROL, TOTAL 149 mg/dL (140-239); FOLATE LEVEL 13.3 ng/mL (3.1-17.5); HDL CHOL % 44 % (26-37); HDL CHOLESTEROL (DIRECT) 65 mg/dL (40-60); LDL CHOLESTEROL,CALCULATED 67 mg/dL (54-169); TRIGLYCERIDES 85 mg/dL (50-200); VLDL CHOLESTEROL 17 mg/dL (0-25)
[2017-11-29 07:30] VITALS: BP 111/74
[2017-11-29] MEDS: OMEPRAZOLE 20 MG CAPSULE.DR PO SCH (07:32)
[2017-11-29] MEDS: ARIPIPRAZOLE 10 MG TABLET PO SCH (08:37)
[2017-11-29] MEDS: FLUOXETINE HCL 20 MG CAPSULE PO SCH (08:37)
[2017-11-29] MEDS: FOLIC ACID 1 MG TABLET PO SCH (08:37)
[2017-11-29] MEDS: LORazepam 1MG TABLET PO PRN ×2 (08:37→17:46)
[2017-11-29] MEDS: THIAMINE 100MG TABLET PO SCH (08:37)
[2017-11-29] MEDS: ENOXAPARIN 40 MG/0.4 ML SQ SCH (17:45)
[2017-11-29 19:34] VITALS: BP 122/83
[2017-11-29] MEDS: DOCUSATE 100 MG CAPSULE PO PRN (20:21)
[2017-11-29] MEDS: QUETIAPINE 100MG TABLET PO SCH (20:21)
[2017-11-29] MEDS: TRAZODONE 100MG TABLET PO SCH (20:21)
[2017-11-30] MEDS: OMEPRAZOLE 20 MG CAPSULE.DR PO SCH (07:15)
[2017-11-30] MEDS: THIAMINE 100MG TABLET PO SCH (07:15)
[2017-11-30] MEDS: FLUOXETINE HCL 20 MG CAPSULE PO SCH (07:15)
[2017-11-30] MEDS: FOLIC ACID 1 MG TABLET PO SCH (07:16)
[2017-11-30] MEDS: ARIPIPRAZOLE 10 MG TABLET PO SCH (07:17)
[2017-11-30] MEDS: LORazepam 1MG TABLET PO PRN (07:27)
[2017-11-30 07:30] VITALS: BP 121/84
[2017-11-30] MEDS: ENOXAPARIN 40 MG/0.4 ML SQ SCH (17:30)
[2017-11-30 19:50] VITALS: BP 123/78
[2017-11-30] MEDS: TRAZODONE 100MG TABLET PO SCH (20:10)
[2017-11-30] MEDS: QUETIAPINE 100MG TABLET PO SCH (20:10)
[2017-11-30] MEDS: ONDANSETRON ODT 4 MG PO PRN (20:11)
[2017-12-01] MEDS: OMEPRAZOLE 20 MG CAPSULE.DR PO SCH (07:16)
[2017-12-01 07:29] VITALS: BP 102/70
[2017-12-01] MEDS: THIAMINE 100MG TABLET PO SCH (08:03)
[2017-12-01] MEDS: FLUOXETINE HCL 20 MG CAPSULE PO SCH (08:04)
[2017-12-01] MEDS: FOLIC ACID 1 MG TABLET PO SCH (08:04)
[2017-12-01] MEDS: ARIPIPRAZOLE 10 MG TABLET PO SCH (08:04)
[2017-12-01] MEDS: DOCUSATE 100 MG CAPSULE PO PRN (15:11)
[2017-12-01] MEDS: ENOXAPARIN 40 MG/0.4 ML SQ SCH (18:00)
[2017-12-01 19:29] VITALS: BP 115/94
[2017-12-01] MEDS: TRAZODONE 100MG TABLET PO SCH (20:14)
[2017-12-01] MEDS: ONDANSETRON ODT 4 MG PO PRN (20:14)
[2017-12-01] MEDS: QUETIAPINE 100MG TABLET PO SCH (20:16)
[2017-12-02 07:20] VITALS: BP 120/81
[2017-12-02] MEDS: OMEPRAZOLE 20 MG CAPSULE.DR PO SCH (07:24)
[2017-12-02] MEDS: THIAMINE 100MG TABLET PO SCH (07:24)
[2017-12-02] MEDS: FOLIC ACID 1 MG TABLET PO SCH (07:24)
[2017-12-02] MEDS: ARIPIPRAZOLE 10 MG TABLET PO SCH (07:25)
[2017-12-02] MEDS: FLUOXETINE HCL 20 MG CAPSULE PO SCH (07:25)
[2017-12-02] MEDS: DOCUSATE 100 MG CAPSULE PO PRN (12:05)
[2017-12-02] MEDS: ENOXAPARIN 40 MG/0.4 ML SQ SCH (17:36)
[2017-12-02 19:39] VITALS: BP 115/80
[2017-12-02] MEDS: TRAZODONE 100MG TABLET PO SCH (22:17)
[2017-12-02] MEDS: QUETIAPINE 100MG TABLET PO SCH (22:19)
[2017-12-03] MEDS: OMEPRAZOLE 20 MG CAPSULE.DR PO SCH (07:33)
[2017-12-03 07:39] VITALS: BP 112/75
[2017-12-03] MEDS: THIAMINE 100MG TABLET PO SCH (09:04)
[2017-12-03] MEDS: FOLIC ACID 1 MG TABLET PO SCH (09:04)
[2017-12-03] MEDS: ARIPIPRAZOLE 10 MG TABLET PO SCH (09:04)
[2017-12-03] MEDS: FLUOXETINE HCL 20 MG CAPSULE PO SCH (09:05)
[2017-12-03] MEDS: LORazepam 1MG TABLET PO PRN (12:23)
[2017-12-03] MEDS ORDERED: FLUO20CA8 PO (17:11)
[2017-12-03] MEDS ORDERED: ARIP10TA33 PO (17:11)
[2017-12-03] MEDS ORDERED: OMEP-110 PO (17:11)
[2017-12-03] MEDS ORDERED: QUET100T PO (17:11)
[2017-12-03] MEDS ORDERED: TRAZ-137 PO (17:11)
[2017-12-03] MEDS: ENOXAPARIN 40 MG/0.4 ML SQ SCH (18:00)
[2017-12-03 19:26] VITALS: BP 115/84
[2017-12-03] MEDS: TRAZODONE 100MG TABLET PO SCH (21:52)
[2017-12-03] MEDS: QUETIAPINE 100MG TABLET PO SCH (21:53)
[2017-12-04] MEDS: OMEPRAZOLE 20 MG CAPSULE.DR PO SCH (07:29)
[2017-12-04] MEDS: LORazepam 1MG TABLET PO PRN (07:36)
[2017-12-04] MEDS: FOLIC ACID 1 MG TABLET PO SCH (08:21)
[2017-12-04 08:22] VITALS: BP 127/87
[2017-12-04] MEDS: ARIPIPRAZOLE 10 MG TABLET PO SCH (08:22)
[2017-12-04] MEDS: FLUOXETINE HCL 20 MG CAPSULE PO SCH (08:22)
[2017-12-04] MEDS: THIAMINE 100MG TABLET PO SCH (08:22)
== END 2017-12-04 12:00 | DRG 885 ==
LOC: 3E 12:19
PROVIDERS: ADMIT Psychiatry & Neurology Psychosomatic Medicine; ATTEND Psychiatry & Neurology Psychosomatic Medicine
DX: F25.1 Schizoaffective disorder, depressive type (principal); R45.851 Suicidal ideations; G47.00 Insomnia, unspecified; K21.9 Gastro-esophageal reflux disease without esophagitis; F31.9 Bipolar disorder, unspecified; Z80.1 Family history of malignant neoplasm of trachea, bronchus and lung; Z80.0 Family history of malignant neoplasm of digestive organs; Z81.8 Family history of other mental and behavioral disorders; F10.10 Alcohol abuse, uncomplicated; Z87.81 Personal history of (healed) traumatic fracture; Z86.19 Personal history of other infectious and parasitic diseases
CPT/HCPCS: 36415; 80048; 80061; 81003; 82140; 82607; 82746; 84443; 86592; 93005; J1650; Q0162; 92523-GN

== ENCOUNTER 2018-02-22 20:06 | Inpatient (IN) | payer MEDICAID ==
[~2018-02-22] VITALS: Ht 185.4 cm; Wt 70.8 kg
[~2018-02-22 20:06] MED LIST changes: +ARIP10TA33 PO; +OMEP-110 PO; +QUET100T PO; +TRAZ-137 PO
[2018-02-22] MEDS ORDERED: FLONASE NS (20:37)
[2018-02-22] MEDS ORDERED: QUET400T6 PO (20:37)
[2018-02-22] MEDS ORDERED: MONT10TA9 PO (20:37)
[2018-02-22] MEDS ORDERED: ESOM20CA57 PO (20:37)
[2018-02-22 21:11] LABS: BASOPHILS # (AUTO) 0.02 x10^3/uL (0-0.1); BASOPHILS % (AUTO) 0 % (0-1); EOSINOPHILS # (AUTO) 0.09 x10^3/uL (0-0.4); EOSINOPHILS % (AUTO) 2 % (1-7); LYMPHOCYTES # (AUTO) 1.67 x10^3/uL (1-3.4); LYMPHOCYTES % (AUTO) 28 % (22-44); MD NO; MEAN CORPUSCULAR HEMOGLOBIN 31.5 pg (27.5-34.5); MEAN CORPUSCULAR HGB CONC 34.4 g/dL (33.2-36.2); MEAN CORPUSCULAR VOLUME 91.4 fL (81-97); MEAN PLATELET VOLUME 8.2 fL (7.4-10.4); MONOCYTES # (AUTO) 0.35 x10^3/uL (0.2-0.8); MONOCYTES % (AUTO) 6 % (2-9); NEUTROPHILS # (AUTO) 3.82 x10^3/uL (1.8-6.8); NEUTROPHILS % (AUTO) 64 % (42-75); PLATELET COUNT 204 x10^3/uL (130-400); RED BLOOD COUNT 4.11 x10^6/uL (4.38-5.82); RED CELL DISTRIBUTION WIDTH 14.6 % (9.4-14.8)
[2018-02-22 21:24] LABS: ALANINE AMINOTRANSFERASE 44 U/L (12-78); ALBUMIN 3.6 g/dL (3.4-5.0); ANION GAP 8 mmol/L (5-15); CALCIUM 8.5 mg/dL (8.5-10.1); CHLORIDE 107 mmol/L (98-107); CREATININE 1.16 mg/dL (0.7-1.3)
[2018-02-22 21:28] LABS: ALKALINE PHOSPHATASE 63 U/L (45-117); BILIRUBIN,TOTAL 0.6 mg/dL (0.2-1.0); TOTAL PROTEIN 6.9 g/dL (6.4-8.2); TROPONIN I < 0.015 ng/mL (0.000-0.045)
[2018-02-22 22:32] LABS: AMPHETAMINE SCREEN, URINE Negative (Negative); BARBITURATE SCREEN, URINE Negative (Negative); BENZODIAZEPINE SCREEN, URINE Negative (Negative); CANNABINOID SCREEN, URINE Negative (Negative); COCAINE SCREEN, URINE Negative (Negative); METHADONE SCREEN, URINE Negative (Negative); OPIATE SCREEN, URINE Negative (Negative)
[2018-02-22] MEDS ORDERED: SODIUM CHLORIDE 0.9% 1,000 ML IV SCH (23:26)
[2018-02-22] MEDS: QUETIAPINE 200 MG TABLET PO SCH (23:30)
[2018-02-22] MEDS ORDERED: morphine SULFATE 10 MG/ML, 1ML IVPush PRN (23:30)
[2018-02-22] MEDS ORDERED: ONDANSETRON 2MG/ML, 2ML IVPush PRN (23:30)
[2018-02-23] MEDS: TRAZODONE 100MG TABLET PO SCH ×2 (00:59→21:23)
[2018-02-23 01:00] VITALS: BP 102/67
[2018-02-23 03:29] LABS: TROPONIN I < 0.015 ng/mL (0.000-0.045)
[2018-02-23 06:16] LABS: CHOLESTEROL, TOTAL 146 mg/dL (140-239); TRIGLYCERIDES 65 mg/dL (50-200); VLDL CHOLESTEROL 13 mg/dL (0-25)
[2018-02-23 06:19] LABS: CHOL/HDL RATIO 2.8; HDL CHOL % 36 % (26-37); HDL CHOLESTEROL (DIRECT) 52 mg/dL (40-60); LDL CHOLESTEROL,CALCULATED 81 mg/dL (54-169); LDL/HDL RATIO 1.6 (0.5-3.0); TROPONIN I < 0.015 ng/mL (0.000-0.045)
[2018-02-23 07:38] VITALS: BP 93/60
[2018-02-23] MEDS: PANTOPROZOLE 40MG TABLET PO SCH (08:23)
[2018-02-23] MEDS: MONTELUKAST 10 MG TABLET PO SCH (08:23)
[2018-02-23] MEDS: FLUOXETINE HCL 20 MG CAPSULE PO SCH (08:24)
[2018-02-23] MEDS: ARIPIPRAZOLE 5 MG TABLET PO SCH (08:24)
[2018-02-23] MEDS ORDERED: REGADENOSON 0.4 MG/5 ML SYRINGE ONE (09:54)
[2018-02-23 12:23] VITALS: BP 106/72
[2018-02-23] MEDS: FLUTICASONE NASAL SPRAY 16GM NAS SCH (12:30)
[2018-02-23] MEDS: METOPROLOL TARTRATE 25 MG TABLET PO SCH ×2 (15:09→21:24)
[2018-02-23] MEDS ORDERED: ACETAMINOPHEN 325 MG TABLET PO PRN (16:00)
[2018-02-23 19:04] VITALS: BP 94/59
[2018-02-23] MEDS ORDERED: ATORVASTATIN 40 MG TABLET PO SCH (21:00)
[2018-02-23] MEDS: QUETIAPINE 200 MG TABLET PO SCH (21:24)
[2018-02-24 01:27] VITALS: BP 100/62
[2018-02-24] MEDS: METOPROLOL TARTRATE 25 MG TABLET PO SCH ×2 (06:02→15:44)
[2018-02-24 06:03] VITALS: BP 90/50
[2018-02-24 07:23] VITALS: BP 111/71
[2018-02-24] MEDS: FLUTICASONE NASAL SPRAY 16GM NAS SCH (07:43)
[2018-02-24] MEDS: PANTOPROZOLE 40MG TABLET PO SCH (07:43)
[2018-02-24] MEDS: FLUOXETINE HCL 20 MG CAPSULE PO SCH (07:43)
[2018-02-24] MEDS: MONTELUKAST 10 MG TABLET PO SCH (07:43)
[2018-02-24] MEDS: ARIPIPRAZOLE 5 MG TABLET PO SCH (07:44)
[2018-02-24] MEDS ORDERED: ASPIRIN 81 MG TABLET EC PO SCH (09:00)
[2018-02-24 13:06] VITALS: BP 113/80
[2018-02-24] MEDS ORDERED: ASPI-621 PO (16:45)
[2018-02-24] MEDS ORDERED: ATOR40TA78 PO (16:45)
[2018-02-24] MEDS ORDERED: METO25TA35 PO (16:45)
== END 2018-02-24 18:02 | disposition home or self-care (01) | DRG 311 ==
LOC: ED 22:33 → SUATTDRO 23:25 → EDIP 23:26 → OBSVTOIN 23:26 → 5SO 02-23 00:34
PROVIDERS: ADMIT Hospitalist; ATTEND Hospitalist
DX: I20.9 Angina pectoris, unspecified (principal); I50.22 Chronic systolic (congestive) heart failure; B19.20 Unspecified viral hepatitis C without hepatic coma; F20.9 Schizophrenia, unspecified; F31.9 Bipolar disorder, unspecified; G40.909 Epilepsy, unspecified, not intractable, without status epilepticus; F99 Mental disorder, not otherwise specified; I11.0 Hypertensive heart disease with heart failure; F10.20 Alcohol dependence, uncomplicated; J44.9 Chronic obstructive pulmonary disease, unspecified; K21.9 Gastro-esophageal reflux disease without esophagitis; Z87.891 Personal history of nicotine dependence; Z87.81 Personal history of (healed) traumatic fracture; Z91.5 Personal history of self-harm; Z53.29 Procedure and treatment not carried out because of patient's decision for other reasons; Z79.899 Other long term (current) drug therapy
CPT/HCPCS: 36415; 71045; 78452; 80053; 80061; 80307; 84484; 85025; 85379; 93005; 93017; 93306; 99285; G0378; J2785; A9502; C9898; J7030

== ENCOUNTER 2018-07-19 11:21 | Emergency (ER) | payer MEDICAID ==
[~2018-07-19] VITALS: Ht 185.4 cm; Wt 76.0 kg
[~2018-07-19 11:21] MED LIST changes: +ASPI81TA45 PO; +ATOR40TA78 PO; +BUPR150T73 PO; +BUSP15TA PO; +CALC60CR2 TP; +CLOB15CR19 TP; +ESOM20CA57 PO; +FLONASE NS; +HYDROXYZINE; +LORA10TA62 PO; +METO25TA35 PO; +MONT10TA9 PO; -QUET400T6 PO; +QUET400T7 PO
[2018-07-19 11:32] VITALS: BP 94/65
[2018-07-19] MEDS ORDERED: KETOROLAC 30 MG/1 ML ONE (11:42)
[2018-07-19] MEDS ORDERED: KETOROLAC 30 MG/1 ML IM ONE (12:00)
--- NOTE | 2018-07-19 12:05 | NUR ---
PAT RN: Patient/Caregiver given discharge instructions and they have confirmed that they understand the instructions. Patient ambulatory with steady gait.
== END 2018-07-19 12:08 | disposition home or self-care (01) ==
LOC: ED 12:02
DX: K02.9 Dental caries, unspecified (principal); F20.9 Schizophrenia, unspecified; F31.9 Bipolar disorder, unspecified; F44.9 Dissociative and conversion disorder, unspecified
CPT/HCPCS: 96372; 99283; J1885

== ENCOUNTER 2018-07-28 00:58 | Emergency (ER) | payer MEDICAID ==
[~2018-07-28] VITALS: Ht 185.4 cm; Wt 78.6 kg
--- NOTE | 2018-07-28 01:12 | NUR ---
assessment made. chart up for MD to see.
[2018-07-28] MEDS ORDERED: MECLIZINE 25 MG TABLET PO ONE (01:30)
--- NOTE | 2018-07-28 01:30 | NUR ---
feeling dizzy x 1 1/2 hours and I have really bad teeth with pain
[2018-07-28] MEDS ORDERED: MECLIZINE CHEWABLE 25 MG TAB ONE (01:33)
--- NOTE | 2018-07-28 01:37 | NUR ---
PT TO CT
[2018-07-28] MEDS ORDERED: ONDANSETRON ODT 4 MG ONE (01:39)
[2018-07-28 01:57] VITALS: BP 116/78
[2018-07-28] MEDS ORDERED: ONDANSETRON ODT 4 MG PO ONE (02:00)
[2018-07-28 02:05] LABS: BASOPHILS # (AUTO) 0.04 x10^3/uL (0-0.1); BASOPHILS % (AUTO) 1 % (0-1); EOSINOPHILS # (AUTO) 0.39 x10^3/uL (0-0.4); EOSINOPHILS % (AUTO) 6 % (1-7); LYMPHOCYTES # (AUTO) 2.15 x10^3/uL (1-3.4); LYMPHOCYTES % (AUTO) 35 % (22-44); MD NO; MEAN CORPUSCULAR VOLUME 91.2 fL (81-97); MEAN PLATELET VOLUME 8.1 fL (7.4-10.4); MONOCYTES # (AUTO) 0.33 x10^3/uL (0.2-0.8); MONOCYTES % (AUTO) 6 % (2-9); NEUTROPHILS # (AUTO) 3.19 x10^3/uL (1.8-6.8); NEUTROPHILS % (AUTO) 52 % (42-75); PLATELET COUNT 184 x10^3/uL (130-400); RED CELL DISTRIBUTION WIDTH 14.5 % (9.4-14.8)
[2018-07-28 02:17] LABS: ALANINE AMINOTRANSFERASE 66 U/L (12-78); ALBUMIN 3.9 g/dL (3.4-5.0); ANION GAP 8 mmol/L (5-15); CALCIUM 8.6 mg/dL (8.5-10.1); CHLORIDE 107 mmol/L (98-107); CREATININE 1.05 mg/dL (0.7-1.3)
[2018-07-28 02:22] LABS: ALKALINE PHOSPHATASE 73 U/L (45-117); BILIRUBIN,TOTAL 0.4 mg/dL (0.2-1.0); TOTAL PROTEIN 7.2 g/dL (6.4-8.2); TROPONIN I < 0.015 ng/mL (0.000-0.045)
--- NOTE | 2018-07-28 02:46 | NUR ---
Patient/Caregiver given discharge instructions and they have confirmed that they understand the instructions. Patient ambulatory with steady gait.
== END 2018-07-28 02:48 | disposition home or self-care (01) ==
LOC: ED 01:27
DX: F10.129 Alcohol abuse with intoxication, unspecified (principal); K08.89 Other specified disorders of teeth and supporting structures
CPT/HCPCS: 36415; 70450; 71046; 80053; 80307; 83690; 83880; 84484; 85025; 93005; 99284; Q0162

== ENCOUNTER 2018-08-14 19:09 | Emergency (ER) | payer MEDICAID ==
--- NOTE | 2018-08-14 19:13 | NUR ---
called for triage, no answer
--- NOTE | 2018-08-14 19:13 | NUR ---
Security outisde, not that pt has walked out front door ambulating away from hospital with steady gait.
== END 2018-08-14 19:15 | disposition left against medical advice (07) ==
LOC: ED 19:09
DX: R22.0 Localized swelling, mass and lump, head (principal); Z53.21 Procedure and treatment not carried out due to patient leaving prior to being seen by health care provider

== ENCOUNTER 2018-11-06 13:27 | Emergency (ER) | payer MEDICAID ==
[~2018-11-06] VITALS: Ht 185.4 cm; Wt 74.9 kg
[2018-11-07 20:39] VITALS: BP 122/76
== END 2018-11-07 20:44 ==
LOC: ED 14:18
DX: F33.3 Major depressive disorder, recurrent, severe with psychotic symptoms (principal); R45.851 Suicidal ideations; F15.20 Other stimulant dependence, uncomplicated; Z72.9 Problem related to lifestyle, unspecified; G40.909 Epilepsy, unspecified, not intractable, without status epilepticus; J44.9 Chronic obstructive pulmonary disease, unspecified; Z90.89 Acquired absence of other organs
CPT/HCPCS: 36415; 71045; 80053; 80307; 84484; 85025; 93005; 99285; Q0162

== ENCOUNTER 2019-05-15 16:31 | Emergency (ER) | payer MEDICAID ==
[~2019-05-15] VITALS: Ht 175.3 cm; Wt 82.0 kg
[~2019-05-15 16:31] MED LIST changes: +ATOR20TA37 PO; +METOPROLOL ER PO; +QUET300T5 PO
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
[2019-05-15] MEDS ORDERED: ONDANSETRON ODT 8 MG ONE (16:55)
[2019-05-15] MEDS ORDERED: PROPARACAINE OPHTH 0.5%, 15ML ONE (16:59)
[2019-05-15] MEDS ORDERED: FLUORESCEIN OPHTHALMIC 1 MG STRIP ONE (16:59)
[2019-05-15] MEDS ORDERED: FLUORESCEIN OPHTHALMIC 1 MG STRIP EACHEYE ONE (17:00)
[2019-05-15] MEDS ORDERED: ONDANSETRON ODT 8 MG PO ONE (17:00)
[2019-05-15] MEDS ORDERED: PROPARACAINE OPHTH 0.5%, 15ML EACHEYE ONE (17:00)
[2019-05-15] MEDS ORDERED: LORazepam 1MG TABLET ONE ×3 (17:38→18:41)
--- NOTE | 2019-05-15 17:41 | NUR ---
PT RESTING IN BED, CALL LIGHT IN REACH, MILD ANXIETY
[2019-05-15] MEDS ORDERED: LORazepam 1MG TABLET PO ONE ×2 (18:00→18:30)
[2019-05-15 18:42] VITALS: BP 123/63
== END 2019-05-15 19:50 | disposition home or self-care (01) ==
LOC: ED 18:05
DX: H10.213 Acute toxic conjunctivitis, bilateral (principal); I10 Essential (primary) hypertension; F10.129 Alcohol abuse with intoxication, unspecified; Y90.9 Presence of alcohol in blood, level not specified
CPT/HCPCS: 70450; 99284; Q0162

== ENCOUNTER 2019-06-18 06:44 | Emergency (ER) | payer MEDICAID ==
[~2019-06-18] VITALS: Ht 175.3 cm; Wt 82.0 kg
[~2019-06-18 06:44] MED LIST changes: +FLUO20CA23 PO; -FLUO20CA8 PO; +MONT10TA11 PO; -MONT10TA9 PO; -TRAZ-137 PO; +TRAZ-175 PO
--- NOTE | 2019-06-18 07:28 | NUR ---
LATE ENTRY FOR 0720. PT TO ROOM AT THIS TIME.
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
[2019-06-18] MEDS ORDERED: ACETAMINOPHEN 325 MG TABLET PO ONE (08:00)
--- NOTE | 2019-06-18 08:02 | NUR ---
PT CONTINUES TO SLEEP ON [place]. VSS. WILL CONTINUE TO MONITOR
--- NOTE | 2019-06-18 08:05 | NUR ---
PT BEING TAKEN TO IMAGING. EXPLAINED TO PT THAT TYLENOL WAS ORDERED FOR PAIN. PT STATES "TYLENOL ISN'T GOING TO DO ANYTHING." WILL CONTINUE TO MONITOR
--- NOTE | 2019-06-18 08:59 | NUR ---
PT CONTINUES TO SLEEP ON GURBI. NATHALY. VSS. WILL CONTINUE TO MONITOR.
--- NOTE | 2019-06-18 09:57 | NUR ---
PT CONTINUES TO SLEEP ON GURNEY. NADN. RESPS EQUAL AND UNLABORED. WILL CONTINUE TO MONITOR. VSS.
[2019-06-18 09:58] VITALS: BP 109/78
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
== END 2019-06-18 10:36 | disposition home or self-care (01) ==
LOC: ED 09:26
DX: S02.609B Fracture of mandible, unspecified, initial encounter for open fracture (principal); J44.9 Chronic obstructive pulmonary disease, unspecified; F10.20 Alcohol dependence, uncomplicated; G40.909 Epilepsy, unspecified, not intractable, without status epilepticus; I10 Essential (primary) hypertension; Z72.9 Problem related to lifestyle, unspecified; Y04.8XXA Assault by other bodily force, initial encounter; Y93.89 Activity, other specified; Y92.410 Unspecified street and highway as the place of occurrence of the external cause; Y99.8 Other external cause status; Y90.0 Blood alcohol level of less than 20 mg/100 ml
CPT/HCPCS: 70450; 70486; 99285

== ENCOUNTER 2019-06-30 22:01 | Emergency (ER) | payer MEDICAID ==
[2019-06-30 22:26] VITALS: BP 143/84
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
[2019-06-30 22:33] LABS: BASOPHILS # (AUTO) 0.03 x10^3/uL (0-0.1); BASOPHILS % (AUTO) 1 % (0-1); EOSINOPHILS # (AUTO) 0.35 x10^3/uL (0-0.4); EOSINOPHILS % (AUTO) 7 % (1-7); LYMPHOCYTES # (AUTO) 1.94 x10^3/uL (1-3.4); LYMPHOCYTES % (AUTO) 39 % (22-44); MD NO; MEAN CORPUSCULAR HEMOGLOBIN 30.5 pg (27.5-34.5); MEAN CORPUSCULAR HGB CONC 33.5 g/dL (33.2-36.2); MEAN PLATELET VOLUME 7.6 fL (7.4-10.4); MONOCYTES # (AUTO) 0.24 x10^3/uL (0.2-0.8); MONOCYTES % (AUTO) 5 % (2-9); NEUTROPHILS # (AUTO) 2.41 x10^3/uL (1.8-6.8); NEUTROPHILS % (AUTO) 49 % (42-75); PLATELET COUNT 273 x10^3/uL (130-400); RED BLOOD COUNT 4.65 x10^6/uL (4.38-5.82); RED CELL DISTRIBUTION WIDTH 16.3 % (9.4-14.8)
[2019-06-30 22:47] LABS: ALBUMIN 3.9 g/dL (3.4-5.0); ANION GAP 8 mmol/L (5-15); CALCIUM 8.4 mg/dL (8.5-10.1); CHLORIDE 107 mmol/L (98-107); SALICYLATE LEVEL < 1.7 mg/dL (2.8-20.0)
[2019-06-30 22:49] LABS: ALANINE AMINOTRANSFERASE 21 U/L (12-78); ALKALINE PHOSPHATASE 101 U/L (45-117); BILIRUBIN,TOTAL 0.3 mg/dL (0.2-1.0); CREATININE 0.89 mg/dL (0.7-1.3); TOTAL PROTEIN 7.8 g/dL (6.4-8.2)
--- NOTE | 2019-06-30 23:36 | NUR ---
Pt sleeping at this time. Resp even and unlabored. Sitter in hallway to monitor patient.
--- NOTE | 2019-07-01 01:52 | NUR ---
Pt provided urine sample, breathalyzed and currently at a 0.189. Will continue to monitor
[2019-07-01 03:20] LABS: CULTURE INDICATED? NO; MICROSCOPIC NOT IND
[2019-07-01 03:29] LABS: AMPHETAMINE SCREEN, URINE Negative (Negative); BARBITURATE SCREEN, URINE Negative (Negative); BENZODIAZEPINE SCREEN, URINE Positive (Negative); CANNABINOID SCREEN, URINE Negative (Negative); COCAINE SCREEN, URINE Negative (Negative); METHADONE SCREEN, URINE Negative (Negative); OPIATE SCREEN, URINE Negative (Negative)
--- NOTE | 2019-07-01 05:59 | NUR ---
tele psych consult taking place now.
--- NOTE | 2019-07-01 06:36 | NUR ---
PSYCH recomendation: resources for detox.
--- NOTE | 2019-07-01 06:45 | NUR ---
Legal hold discontinued, patient's belongings returned and detox resources given to patient. Pt verbalized understanding
== END 2019-07-01 06:47 ==
LOC: ED 07-01 02:41
DX: F33.9 Major depressive disorder, recurrent, unspecified (principal); F10.229 Alcohol dependence with intoxication, unspecified; Y90.0 Blood alcohol level of less than 20 mg/100 ml; J44.9 Chronic obstructive pulmonary disease, unspecified; F20.9 Schizophrenia, unspecified
CPT/HCPCS: 36415; 80053; 80307; 81003; 85025; 99284

== ENCOUNTER 2019-07-22 01:29 | Emergency (ER) | payer MEDICAID ==
[~2019-07-22] VITALS: Ht 175.3 cm; Wt 79.7 kg
[2019-07-22 01:36] VITALS: BP 102/70
== END 2019-07-22 04:07 | disposition home or self-care (01) ==
LOC: ED 01:51
DX: F10.220 Alcohol dependence with intoxication, uncomplicated (principal); R05 Cough; R07.89 Other chest pain; I10 Essential (primary) hypertension; J44.9 Chronic obstructive pulmonary disease, unspecified; G40.909 Epilepsy, unspecified, not intractable, without status epilepticus; Z87.891 Personal history of nicotine dependence; Z90.89 Acquired absence of other organs; Z72.9 Problem related to lifestyle, unspecified; Y90.0 Blood alcohol level of less than 20 mg/100 ml
CPT/HCPCS: 71045; 93005; 99283

== ENCOUNTER 2019-08-02 23:11 | Emergency (ER) | payer MEDICAID ==
[~2019-08-02] VITALS: Ht 185.4 cm; Wt 73.9 kg
[2019-08-02 23:22] VITALS: BP 140/87
--- NOTE | 2019-08-02 23:50 | NUR ---
ERP AT BEDSIDE FOR EVAL.
--- NOTE | 2019-08-02 23:51 | NUR ---
PT REPORTS HE COUGHED UP BLOOD THIS MORNING, ALSO REPORTS " I DONT WANT TO LIVE ANYMORE". PER PT HE STATES HE CAN GET SLEEPING PILLS AND VODKA FOR SA. ROOM SECURED FOR SAFETY, SITTER AT DOORWAY FOR MONITORING.
== END 2019-08-03 00:24 | disposition left against medical advice (07) ==
LOC: ED 23:45
DX: R45.851 Suicidal ideations (principal); F10.10 Alcohol abuse, uncomplicated; Z72.9 Problem related to lifestyle, unspecified; I10 Essential (primary) hypertension; F20.9 Schizophrenia, unspecified; J44.9 Chronic obstructive pulmonary disease, unspecified; G40.909 Epilepsy, unspecified, not intractable, without status epilepticus; Z90.89 Acquired absence of other organs; Z87.891 Personal history of nicotine dependence; Y90.9 Presence of alcohol in blood, level not specified
CPT/HCPCS: 99281; 99284

== ENCOUNTER 2019-08-10 02:16 | Observation (INO) | payer MEDICAID ==
[~2019-08-10] VITALS: Ht 185.4 cm; Wt 82.0 kg
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
[2019-08-10] MEDS ORDERED: DIPH,PERTUSS(ACELL),TET VAC/PF 0.5 ML IM-VACC ONE ×2 (02:43→03:00)
[2019-08-10 03:01] LABS: BASOPHILS # (AUTO) 0.03 x10^3/uL (0-0.1); BASOPHILS % (AUTO) 1 % (0-1); EOSINOPHILS # (AUTO) 0.17 x10^3/uL (0-0.4); EOSINOPHILS % (AUTO) 3 % (1-7); LYMPHOCYTES % (AUTO) 35 % (22-44); MD NO; MEAN CORPUSCULAR HEMOGLOBIN 30.5 pg (27.5-34.5); MEAN CORPUSCULAR HGB CONC 33.5 g/dL (33.2-36.2); MEAN PLATELET VOLUME 8.4 fL (7.4-10.4); MONOCYTES # (AUTO) 0.24 x10^3/uL (0.2-0.8); MONOCYTES % (AUTO) 5 % (2-9); NEUTROPHILS # (AUTO) 2.78 x10^3/uL (1.8-6.8); NEUTROPHILS % (AUTO) 57 % (42-75); PLATELET COUNT 219 x10^3/uL (130-400); RED BLOOD COUNT 4.47 x10^6/uL (4.38-5.82); RED CELL DISTRIBUTION WIDTH 15.8 % (9.4-14.8)
[2019-08-10 03:04] LABS: ALBUMIN 3.7 g/dL (3.4-5.0); ANION GAP 9 mmol/L (5-15); CALCIUM 8.2 mg/dL (8.5-10.1); CHLORIDE 106 mmol/L (98-107)
--- NOTE | 2019-08-10 03:17 | NUR ---
Patient resting in [facility]. Awaiting CT.
[2019-08-10] MEDS ORDERED: NEOSPORIN OINT. PKT 1 PACKET ONE (04:13)
--- NOTE | 2019-08-10 04:27 | NUR ---
Report given to RICKI Norton. Patient to be transferred to room 476.
[2019-08-10 04:34] LABS: ALBUMIN 3.7 g/dL (3.4-5.0); BILIRUBIN, DIRECT 0.1 mg/dL (0.1-0.2)
[2019-08-10 04:36] LABS: BILIRUBIN,TOTAL 0.3 mg/dL (0.2-1.0); TOTAL PROTEIN 7.3 g/dL (6.4-8.2)
[2019-08-10 05:23] VITALS: BP 108/75
[2019-08-10] MEDS ORDERED: POTASSIUM CHLORIDE 20 MEQ, MAGNESIUM SULFATE 2 GM, THIAMINE 200 MG, MVI ADULT 10 ML, FO... IV SCH (05:28)
[2019-08-10] MEDS ORDERED: hydrALAzine 20 MG/ML, 1ML IVPush PRN (05:30)
[2019-08-10] MEDS ORDERED: LORazepam 2 MG/ML, 1ML IVPush PRN (05:30)
[2019-08-10] MEDS ORDERED: ONDANSETRON 2MG/ML, 2ML IVPush PRN (05:30)
[2019-08-10] MEDS ORDERED: morphine SULFATE 10 MG/ML, 1ML IVPush PRN (05:30)
[2019-08-10] MEDS ORDERED: ACETAMINOPHEN 325 MG TABLET PO PRN (05:30)
[2019-08-10 05:36] LABS: BILIRUBIN,INDIRECT 0.2 mg/dL (0.0-2.0)
[2019-08-10] MEDS: HYDROcodone/APAP 5/325 TABLET PO PRN ×4 (05:51→19:07)
[2019-08-10 06:06] VITALS: BP 108/75
[2019-08-10 07:01] LABS: AMPHETAMINE SCREEN, URINE Negative (Negative); BARBITURATE SCREEN, URINE Negative (Negative); BENZODIAZEPINE SCREEN, URINE Negative (Negative); CANNABINOID SCREEN, URINE Negative (Negative); COCAINE SCREEN, URINE Negative (Negative); METHADONE SCREEN, URINE Negative (Negative); OPIATE SCREEN, URINE Negative (Negative)
[2019-08-10 07:31] VITALS: BP 105/67
[2019-08-10] MEDS ORDERED: FLUO10CA13 PO (07:51)
[2019-08-10 13:46] VITALS: BP 119/76
[2019-08-10] MEDS ORDERED: LORazepam 1MG TABLET PO PRN ×3 (15:30)
[2019-08-10] MEDS ORDERED: LORazepam 0.5MG TABLET PO PRN (15:30)
[2019-08-10] MEDS ORDERED: LORazepam 2 MG/ML, 1ML IV PRN ×5 (15:30)
[2019-08-10] MEDS: CHLORDIAZEPOXIDE 25 MG CAPSULE PO SCH ×2 (16:28→20:15)
[2019-08-10 19:49] VITALS: BP 121/77
[2019-08-10] MEDS: QUETIAPINE 200 MG TABLET PO SCH (20:15)
[2019-08-10] MEDS: LORazepam 1MG TABLET PO PRN (20:15)
[2019-08-11] MEDS: LORazepam 1MG TABLET PO PRN ×2 (00:25→20:36)
[2019-08-11 03:30] VITALS: BP 110/74
[2019-08-11 04:53] LABS: BASOPHILS # (AUTO) 0.05 x10^3/uL (0-0.1); BASOPHILS % (AUTO) 1 % (0-1); EOSINOPHILS # (AUTO) 0.32 x10^3/uL (0-0.4); EOSINOPHILS % (AUTO) 7 % (1-7); LYMPHOCYTES # (AUTO) 1.65 x10^3/uL (1-3.4); LYMPHOCYTES % (AUTO) 34 % (22-44); MD NO; MEAN CORPUSCULAR HEMOGLOBIN 30.7 pg (27.5-34.5); MEAN CORPUSCULAR HGB CONC 33.5 g/dL (33.2-36.2); MEAN CORPUSCULAR VOLUME 91.5 fL (81-97); MEAN PLATELET VOLUME 8.4 fL (7.4-10.4); MONOCYTES % (AUTO) 8 % (2-9); NEUTROPHILS # (AUTO) 2.48 x10^3/uL (1.8-6.8); NEUTROPHILS % (AUTO) 51 % (42-75); PLATELET COUNT 183 x10^3/uL (130-400); RED BLOOD COUNT 4.35 x10^6/uL (4.38-5.82); RED CELL DISTRIBUTION WIDTH 15.7 % (9.4-14.8)
[2019-08-11 05:06] LABS: ALBUMIN 3.3 g/dL (3.4-5.0); ANION GAP 5 mmol/L (5-15); CALCIUM 8.2 mg/dL (8.5-10.1); CHLORIDE 108 mmol/L (98-107)
[2019-08-11 05:12] LABS: ALANINE AMINOTRANSFERASE 28 U/L (12-78); ALKALINE PHOSPHATASE 81 U/L (45-117); BILIRUBIN,TOTAL 0.8 mg/dL (0.2-1.0); CREATININE 0.82 mg/dL (0.7-1.3); TOTAL PROTEIN 6.4 g/dL (6.4-8.2)
[2019-08-11] MEDS: CHLORDIAZEPOXIDE 25 MG CAPSULE PO SCH ×2 (05:21→10:52)
[2019-08-11] MEDS: THIAMINE 200 MG, MVI ADULT 10 ML, FOLIC ACID 1 MG in D5%-0.9% NACL 1,000 ML IV SCH ×2 (05:22→15:36)
[2019-08-11 08:00] VITALS: BP 116/63
[2019-08-11] MEDS: FLUOXETINE HCL 20 MG CAPSULE PO SCH (08:35)
[2019-08-11] MEDS: HYDROcodone/APAP 5/325 TABLET PO PRN ×2 (08:37→16:39)
[2019-08-11 14:00] VITALS: BP 133/70
[2019-08-11] MEDS ORDERED: CHLORDIAZEPOXIDE 25 MG CAPSULE PO PRN (18:00)
[2019-08-11 18:52] VITALS: BP 138/78
[2019-08-11] MEDS: QUETIAPINE 200 MG TABLET PO SCH (20:37)
[2019-08-12] MEDS: HYDROcodone/APAP 5/325 TABLET PO PRN (00:30)
[2019-08-12 00:57] VITALS: BP 117/76
[2019-08-12] MEDS: THIAMINE 200 MG, MVI ADULT 10 ML, FOLIC ACID 1 MG in D5%-0.9% NACL 1,000 ML IV SCH (05:32)
[2019-08-12 06:15] LABS: BASOPHILS # (AUTO) 0.02 x10^3/uL (0-0.1); BASOPHILS % (AUTO) 1 % (0-1); EOSINOPHILS # (AUTO) 0.32 x10^3/uL (0-0.4); EOSINOPHILS % (AUTO) 8 % (1-7); LYMPHOCYTES # (AUTO) 1.54 x10^3/uL (1-3.4); LYMPHOCYTES % (AUTO) 38 % (22-44); MD NO; MEAN CORPUSCULAR HEMOGLOBIN 30.5 pg (27.5-34.5); MEAN CORPUSCULAR HGB CONC 33.2 g/dL (33.2-36.2); MEAN CORPUSCULAR VOLUME 91.7 fL (81-97); MEAN PLATELET VOLUME 8.7 fL (7.4-10.4); MONOCYTES # (AUTO) 0.31 x10^3/uL (0.2-0.8); MONOCYTES % (AUTO) 8 % (2-9); NEUTROPHILS # (AUTO) 1.85 x10^3/uL (1.8-6.8); NEUTROPHILS % (AUTO) 46 % (42-75); PLATELET COUNT 192 x10^3/uL (130-400); RED BLOOD COUNT 4.45 x10^6/uL (4.38-5.82); RED CELL DISTRIBUTION WIDTH 15.6 % (9.4-14.8)
[2019-08-12 06:26] LABS: ANION GAP 6 mmol/L (5-15); CALCIUM 8.4 mg/dL (8.5-10.1); CHLORIDE 111 mmol/L (98-107)
[2019-08-12 06:27] LABS: CREATININE 0.85 mg/dL (0.7-1.3)
[2019-08-12 07:38] VITALS: BP 128/88
[2019-08-12] MEDS: FLUOXETINE HCL 20 MG CAPSULE PO SCH (08:48)
[2019-08-12] MEDS ORDERED: THIA100T67 PO (10:53)
[2019-08-12 12:37] VITALS: BP 140/95
== END 2019-08-12 13:00 | disposition home or self-care (01) ==
LOC: ED 04:11 → OBSVTOIN 04:17 → INTOOBSV 04:17 → EDIP 04:17 → 4NE 04:41 → INTOOBSV 15:51 → OBSVTOIN 15:51
PROVIDERS: ADMIT Family Medicine; ATTEND Internal Medicine
DX: S02.609A Fracture of mandible, unspecified, initial encounter for closed fracture (principal); S02.2XXA Fracture of nasal bones, initial encounter for closed fracture; S01.311A Laceration without foreign body of right ear, initial encounter; F10.239 Alcohol dependence with withdrawal, unspecified; I10 Essential (primary) hypertension; J44.9 Chronic obstructive pulmonary disease, unspecified; G89.11 Acute pain due to trauma; M79.601 Pain in right arm; K21.9 Gastro-esophageal reflux disease without esophagitis; B18.2 Chronic viral hepatitis C; F10.220 Alcohol dependence with intoxication, uncomplicated; E78.5 Hyperlipidemia, unspecified; F39 Unspecified mood [affective] disorder; Z23 Encounter for immunization; Z79.899 Other long term (current) drug therapy; Z90.49 Acquired absence of other specified parts of digestive tract; Z79.82 Long term (current) use of aspirin; Y04.0XXA Assault by unarmed brawl or fight, initial encounter; Y93.89 Activity, other specified; Y92.89 Other specified places as the place of occurrence of the external cause
CPT/HCPCS: 36415; 70450; 70486; 71045; 72125; 73130; 80048; 80053; 80076; 80307; 82040; 83735; 84100; 85025; 90471; 90715; 93005; 96365; 96366; 96375; 99285; G0378; J2060; J3411; J3475; J3480; J7042

== ENCOUNTER 2019-08-12 20:36 | Emergency (ER) | payer MEDICAID ==
[~2019-08-12] VITALS: Ht 172.7 cm; Wt 77.0 kg
[~2019-08-12 20:36] MED LIST changes: +FLUO10CA13 PO
[2019-08-12 20:39] VITALS: BP 113/71
[2019-08-12] MEDS ORDERED: THIAMINE 100 MG/ML, 2ML IM ONE (21:00)
[2019-08-12 21:14] LABS: BASOPHILS # (AUTO) 0.05 x10^3/uL (0-0.1); BASOPHILS % (AUTO) 1 % (0-1); EOSINOPHILS # (AUTO) 0.37 x10^3/uL (0-0.4); EOSINOPHILS % (AUTO) 7 % (1-7); LYMPHOCYTES # (AUTO) 1.62 x10^3/uL (1-3.4); LYMPHOCYTES % (AUTO) 30 % (22-44); MD NO; MEAN CORPUSCULAR HEMOGLOBIN 30.7 pg (27.5-34.5); MEAN CORPUSCULAR HGB CONC 33.9 g/dL (33.2-36.2); MEAN CORPUSCULAR VOLUME 90.6 fL (81-97); MEAN PLATELET VOLUME 8.2 fL (7.4-10.4); MONOCYTES # (AUTO) 0.24 x10^3/uL (0.2-0.8); MONOCYTES % (AUTO) 4 % (2-9); NEUTROPHILS # (AUTO) 3.15 x10^3/uL (1.8-6.8); NEUTROPHILS % (AUTO) 58 % (42-75); PLATELET COUNT 228 x10^3/uL (130-400); RED BLOOD COUNT 4.38 x10^6/uL (4.38-5.82); RED CELL DISTRIBUTION WIDTH 15.8 % (9.4-14.8)
[2019-08-12 21:26] LABS: ALANINE AMINOTRANSFERASE 28 U/L (12-78); ALBUMIN 3.5 g/dL (3.4-5.0); ANION GAP 6 mmol/L (5-15); CALCIUM 8.2 mg/dL (8.5-10.1); CHLORIDE 107 mmol/L (98-107); CREATININE 0.93 mg/dL (0.7-1.3)
[2019-08-12 21:28] LABS: ALKALINE PHOSPHATASE 85 U/L (45-117); BILIRUBIN,TOTAL 0.3 mg/dL (0.2-1.0)
--- NOTE | 2019-08-13 02:47 | NUR ---
TASK RN: PT STANDING UP AND WALKING AROUND ROOM WITH STEADY GAIT. THIS RN ASKED PT IF PT HAD ANY NEEDS, PT RESPONDED "IM GOING TO HIT YOU, GO AWAY". SECURITY CALLED FOR ASSISTANCE TO D/C.
== END 2019-08-13 02:56 | disposition home or self-care (01) ==
LOC: ED 22:27
DX: S05.12XA Contusion of eyeball and orbital tissues, left eye, initial encounter (principal); F10.129 Alcohol abuse with intoxication, unspecified; J44.9 Chronic obstructive pulmonary disease, unspecified; I10 Essential (primary) hypertension; Z90.89 Acquired absence of other organs; Y04.2XXA Assault by strike against or bumped into by another person, initial encounter; Y93.89 Activity, other specified; Y92.89 Other specified places as the place of occurrence of the external cause; Y99.8 Other external cause status
CPT/HCPCS: 36415; 70450; 70486; 80053; 85025; 99285

== ENCOUNTER 2019-08-17 19:16 | Emergency (ER) | payer MEDICAID ==
--- NOTE | 2019-08-17 19:41 | NUR ---
ASTTEMPTED TO DO TRAIGE. WHEN ASKED WHY HE WAS HERE HE SAID "FIGURE IT OUT" PT NOT COOPERATING WITH TRIAGE ASSESSMENT. PT RUDE TO STAFF AND ASKED TO LEAVE.
== END 2019-08-17 19:43 | disposition left against medical advice (07) ==
LOC: ED 19:30
DX: F99 Mental disorder, not otherwise specified (principal); Z53.21 Procedure and treatment not carried out due to patient leaving prior to being seen by health care provider

== ENCOUNTER 2019-08-18 15:13 | Emergency (ER) | payer MEDICAID ==
[~2019-08-18] VITALS: Ht 177.8 cm; Wt 76.3 kg
--- NOTE | 2019-08-18 16:06 | NUR ---
PT SLEEPING ON GURNEY. CHEST RISE AND FALL OBSERVED.
--- NOTE | 2019-08-18 17:29 | NUR ---
PT SLEEPING ON GURNEY, CHEST RISE AND FALL OBSERVED.
[2019-08-18 17:43] VITALS: BP 122/77
--- NOTE | 2019-08-18 17:43 | NUR ---
ROAD TESTED PT. PT HAD TO USE WALL FOR SUPPORT 3-4 TIMES. RETURNED TO [facility], WILL ALLOW MORE TIME BEFORE AMBULATING AGAIN.
--- NOTE | 2019-08-18 18:17 | NUR ---
PT ELOPED. AMBULATED W/ A STEADY GAIT.
== END 2019-08-18 18:19 | disposition left against medical advice (07) ==
LOC: ED 16:48
DX: F10.129 Alcohol abuse with intoxication, unspecified (principal); F32.9 Major depressive disorder, single episode, unspecified; I10 Essential (primary) hypertension; J44.9 Chronic obstructive pulmonary disease, unspecified; Z90.89 Acquired absence of other organs
CPT/HCPCS: 99283

== ENCOUNTER 2019-09-10 17:18 | Emergency (ER) | payer MEDICAID ==
[~2019-09-10] VITALS: Ht 185.4 cm; Wt 75.0 kg
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
--- NOTE | 2019-09-10 18:00 | NUR ---
PSYCHOLOGIST EXPERIMENTAL: PRIMARY RN REQUESTING SITTER FOR SI/ETOH. HOUSE SUP/NURSING OPS CALLED, SITTER REQUESTED, PER NURSING OPS "NO LIVESTOCK COMMISSION AGENT AVAILABLE UNTIL 2100." RECORDING CLERK AT BEDSIDE FOR CONTINUOUS SAFETY OBSERVATION UNTIL LIVESTOCK COMMISSION AGENT AVAILABLE. ED SUP VIVIEN AWARE.
--- NOTE | 2019-09-10 18:08 | NUR ---
PT TO CT.
[2019-09-10 18:25] LABS: AMPHETAMINE SCREEN, URINE Negative (Negative); BARBITURATE SCREEN, URINE Negative (Negative); BENZODIAZEPINE SCREEN, URINE Positive (Negative); CANNABINOID SCREEN, URINE Negative (Negative); COCAINE SCREEN, URINE Negative (Negative); METHADONE SCREEN, URINE Negative (Negative); OPIATE SCREEN, URINE Negative (Negative)
--- NOTE | 2019-09-10 18:26 | NUR ---
PT RESTING ON GURNEY W/ GARAGE DOORS DOWN. RESP EVEN AND UNLABORED, NADN. AWAITING RESULTS.
[2019-09-10 18:27] LABS: BASOPHILS # (AUTO) 0.03 x10^3/uL (0-0.1); BASOPHILS % (AUTO) 1 % (0-1); EOSINOPHILS # (AUTO) 0.14 x10^3/uL (0-0.4); EOSINOPHILS % (AUTO) 3 % (1-7); LYMPHOCYTES # (AUTO) 1.89 x10^3/uL (1-3.4); LYMPHOCYTES % (AUTO) 44 % (22-44); MD NO; MEAN CORPUSCULAR HEMOGLOBIN 30.2 pg (27.5-34.5); MEAN CORPUSCULAR HGB CONC 33.2 g/dL (33.2-36.2); MEAN CORPUSCULAR VOLUME 91.1 fL (81-97); MEAN PLATELET VOLUME 8.3 fL (7.4-10.4); MONOCYTES # (AUTO) 0.29 x10^3/uL (0.2-0.8); MONOCYTES % (AUTO) 7 % (2-9); NEUTROPHILS # (AUTO) 1.94 x10^3/uL (1.8-6.8); NEUTROPHILS % (AUTO) 45 % (42-75); PLATELET COUNT 240 x10^3/uL (130-400); RED BLOOD COUNT 4.81 x10^6/uL (4.38-5.82); RED CELL DISTRIBUTION WIDTH 16.2 % (9.4-14.8)
[2019-09-10 18:39] LABS: ALBUMIN 4.1 g/dL (3.4-5.0); ANION GAP 6 mmol/L (5-15); CALCIUM 8.4 mg/dL (8.5-10.1); CHLORIDE 110 mmol/L (98-107)
[2019-09-10 18:42] LABS: ALANINE AMINOTRANSFERASE 25 U/L (12-78); ALKALINE PHOSPHATASE 83 U/L (45-117); BILIRUBIN,TOTAL 0.5 mg/dL (0.2-1.0); CREATININE 1.15 mg/dL (0.7-1.3); TOTAL PROTEIN 7.9 g/dL (6.4-8.2)
[2019-09-10 18:43] LABS: SALICYLATE LEVEL < 1.7 mg/dL (2.8-20.0)
--- NOTE | 2019-09-10 18:46 | NUR ---
DINNER TRAY DELIVERED.
--- NOTE | 2019-09-10 18:55 | NUR ---
REPORT GIVEN TO GWENDOLYN ROBISON. PT RESTING ON GURNEY W/ SITTER OUTSIDE ROOM, GARAGE DOORS DOWN. RESP EVEN AND UNLABORED, NATHALY.
--- NOTE | 2019-09-10 19:02 | NUR ---
PT RESTING ON GURNEY, NAD, RESPIRATIONS EVEN AND UNLABORED, ROOM SECURED, SITTER AT DOORWAY FOR CONTINOUS MONITORING
[2019-09-10] MEDS ORDERED: IBUPROFEN 600 MG TABLET ONE (19:15)
--- NOTE | 2019-09-10 19:23 | NUR ---
PT REQUESTING IBUPROFEN FOR HEADACHE, ERP UPDATED AND ORDER RECIEVED, SEE MAR.
[2019-09-10] MEDS ORDERED: IBUPROFEN 600 MG TABLET PO ONE (19:30)
[2019-09-10] MEDS ORDERED: QUETIAPINE 100MG TABLET ONE (19:53)
--- NOTE | 2019-09-10 19:55 | NUR ---
PT MEDICATED PER JUN, REQUESTING ZOFRAN FOR NAUSEA, PA UPDATED, ORDER RECEIVED SEE JUN. SITTER AT DOORWAY FOR CONTINOUS MONITORING
[2019-09-10] MEDS ORDERED: ONDANSETRON ODT 4 MG ONE (19:56)
[2019-09-10] MEDS ORDERED: ONDANSETRON 4 MG TABLET PO ONE (20:00)
[2019-09-10] MEDS ORDERED: QUETIAPINE 100MG TABLET PO ONE (20:00)
--- NOTE | 2019-09-10 21:05 | NUR ---
PT RESTING WITH EYES CLOSED, NAD, EQUAL CHEST RISE/FALL OBSERVED, SITTER AT DOORWAY FOR CONTINOUS MONIOTRING
--- NOTE | 2019-09-10 22:01 | NUR ---
PT RESTING WITH EYES CLOSED, NAD, EQUAL CHEST RISE/FALL OBSERVED, SITTER AT DOORWAY FOR CONTINOUS MONIOTRING
--- NOTE | 2019-09-10 23:03 | NUR ---
pt resting with eyes closed, repositioned self on gurney, equal chest rise/fall noted, sitter at doorway for continous monitoring
--- NOTE | 2019-09-10 23:20 | NUR ---
PA at pt's bedside for recheck
--- NOTE | 2019-09-10 23:21 | NUR ---
pt alert and answers all questions approprietly, ambulates with steady gait
[2019-09-10 23:22] VITALS: BP 130/88
--- NOTE | 2019-09-11 00:12 | NUR ---
found pt left bottle of his medication in room (qutiapine), medication taken to pharmacy and receipt placed in pt's chart
--- NOTE | 2019-09-11 07:19 | NUR ---
BORING MACHINE SET UP OPERATOR: MEDICATION RETRIEVED FROM PHARMACY AND GIVEN TO PATIENT.
== END 2019-09-10 23:27 | disposition home or self-care (01) ==
LOC: ED 18:25
DX: F10.120 Alcohol abuse with intoxication, uncomplicated (principal); R45.851 Suicidal ideations; R44.0 Auditory hallucinations; R41.82 Altered mental status, unspecified; Z72.9 Problem related to lifestyle, unspecified; F17.200 Nicotine dependence, unspecified, uncomplicated; I10 Essential (primary) hypertension; J44.9 Chronic obstructive pulmonary disease, unspecified; G40.909 Epilepsy, unspecified, not intractable, without status epilepticus; Y90.9 Presence of alcohol in blood, level not specified
CPT/HCPCS: 36415; 70450; 80053; 80307; 85025; 99284; Q0162

== ENCOUNTER 2019-09-28 03:46 | Emergency (ER) | payer MEDICAID ==
[~2019-09-28] VITALS: Ht 185.4 cm; Wt 79.9 kg
[2019-09-28 03:49] VITALS: BP 135/72
== END 2019-09-28 04:20 | disposition home or self-care (01) ==
LOC: ED 04:07
DX: H57.89 Other specified disorders of eye and adnexa (principal); H53.8 Other visual disturbances; I10 Essential (primary) hypertension; J44.9 Chronic obstructive pulmonary disease, unspecified; G40.909 Epilepsy, unspecified, not intractable, without status epilepticus; Z90.89 Acquired absence of other organs
CPT/HCPCS: 99282

== ENCOUNTER 2019-09-29 04:36 | Inpatient (IN) | payer MEDICAID ==
[~2019-09-29] VITALS: Ht 185.4 cm; Wt 81.5 kg
[2019-09-29] MEDS ORDERED: ACETAMINOPHEN 325 MG TABLET PO PRN (05:00)
[2019-09-29] MEDS ORDERED: DOCUSATE 100 MG CAPSULE PO PRN (05:00)
[2019-09-29] MEDS ORDERED: BISACODYL 10 MG SUPP PR PRN (05:00)
[2019-09-29] MEDS ORDERED: POLYETHYLENE GLYCOL 17 GM PACKET PO PRN (05:00)
[2019-09-29 05:47] VITALS: BP 121/75
[2019-09-29] MEDS ORDERED: PLEASE ENTER HEIGHT AND WEIGHT MC SCH (06:00)
[2019-09-29 06:01] LABS: MICROSCOPIC NOT IND
[2019-09-29 07:51] VITALS: BP 105/67
[2019-09-29] MEDS ORDERED: QUETIAPINE 25MG TABLET PO PRN (08:30)
[2019-09-29] MEDS: LORazepam 1MG TABLET PO SCH ×3 (09:02→20:45)
[2019-09-29] MEDS: ONDANSETRON ODT 4 MG PO PRN (09:02)
[2019-09-29 09:28] LABS: BASOPHILS # (AUTO) 0.03 x10^3/uL (0-0.1); BASOPHILS % (AUTO) 1 % (0-1); EOSINOPHILS # (AUTO) 0.19 x10^3/uL (0-0.4); EOSINOPHILS % (AUTO) 4 % (1-7); LYMPHOCYTES # (AUTO) 1.22 x10^3/uL (1-3.4); LYMPHOCYTES % (AUTO) 23 % (22-44); MD NO; MEAN CORPUSCULAR HEMOGLOBIN 30.8 pg (27.5-34.5); MEAN CORPUSCULAR HGB CONC 33.5 g/dL (33.2-36.2); MEAN CORPUSCULAR VOLUME 91.7 fL (81-97); MEAN PLATELET VOLUME 8.3 fL (7.4-10.4); MONOCYTES # (AUTO) 0.36 x10^3/uL (0.2-0.8); MONOCYTES % (AUTO) 7 % (2-9); NEUTROPHILS # (AUTO) 3.52 x10^3/uL (1.8-6.8); NEUTROPHILS % (AUTO) 66 % (42-75); PLATELET COUNT 211 x10^3/uL (130-400); RED BLOOD COUNT 4.67 x10^6/uL (4.38-5.82); RED CELL DISTRIBUTION WIDTH 16.1 % (9.4-14.8)
[2019-09-29 09:37] LABS: ALBUMIN 3.8 g/dL (3.4-5.0); ANION GAP 6 mmol/L (5-15); CALCIUM 8.3 mg/dL (8.5-10.1); CHLORIDE 107 mmol/L (98-107)
[2019-09-29 10:02] LABS: ALANINE AMINOTRANSFERASE 32 U/L (12-78); ALKALINE PHOSPHATASE 100 U/L (45-117); BILIRUBIN, DIRECT 0.2 mg/dL (0.1-0.2); BILIRUBIN,INDIRECT 0.9 mg/dL (0.0-2.0); BILIRUBIN,TOTAL 1.1 mg/dL (0.2-1.0); CHOL/HDL RATIO 2.5; CHOLESTEROL, TOTAL 216 mg/dL (140-239); CREATININE 0.87 mg/dL (0.7-1.3); FREE T4 (FREE THYROXINE) 1.12 ng/dL (0.76-1.46); HDL CHOL % 40 % (26-37); HDL CHOLESTEROL (DIRECT) 87 mg/dL (40-60); LDL CHOLESTEROL,CALCULATED 117 mg/dL (54-169); LDL/HDL RATIO 1.3 (0.5-3.0); TOTAL PROTEIN 7.3 g/dL (6.4-8.2); TRIGLYCERIDES 62 mg/dL (50-200); VLDL CHOLESTEROL 12 mg/dL (0-25)
[2019-09-29] MEDS ORDERED: LORazepam 2 MG/ML, 1ML IV PRN ×3 (12:00)
[2019-09-29] MEDS ORDERED: LORazepam 0.5MG TABLET PO PRN (12:00)
[2019-09-29] MEDS ORDERED: LORazepam 1MG TABLET PO PRN ×2 (12:00)
[2019-09-29] MEDS: THIAMINE 100MG TABLET PO SCH (12:24)
[2019-09-29] MEDS: ACAMPROSATE 333 MG TABLET.DR PO SCH ×2 (16:59→20:44)
[2019-09-29 17:21] VITALS: BP 128/87
[2019-09-29 19:40] VITALS: BP 129/89
[2019-09-29] MEDS: QUETIAPINE 100MG TABLET PO SCH (20:44)
[2019-09-30] MEDS: LORazepam 1MG TABLET PO SCH ×4 (02:38→20:18)
[2019-09-30 07:33] VITALS: BP 120/80
[2019-09-30] MEDS: ACAMPROSATE 333 MG TABLET.DR PO SCH ×3 (08:50→20:18)
[2019-09-30] MEDS: THIAMINE 100MG TABLET PO SCH (08:50)
[2019-09-30] MEDS: ONDANSETRON ODT 4 MG PO PRN (10:49)
[2019-09-30 19:17] VITALS: BP 116/74
[2019-09-30] MEDS: QUETIAPINE 100MG TABLET PO SCH (20:18)
[2019-10-01] MEDS: LORazepam 1MG TABLET PO SCH ×4 (02:59→19:55)
[2019-10-01 07:00] VITALS: BP 132/82
[2019-10-01] MEDS: ACAMPROSATE 333 MG TABLET.DR PO SCH ×3 (08:32→19:55)
[2019-10-01] MEDS: THIAMINE 100MG TABLET PO SCH (08:32)
[2019-10-01] MEDS: FLUOXETINE HCL 20 MG CAPSULE PO SCH (09:48)
[2019-10-01 19:48] VITALS: BP 117/83
[2019-10-01] MEDS: QUETIAPINE 100MG TABLET PO SCH (19:55)
[2019-10-02] MEDS: LORazepam 1MG TABLET PO SCH ×4 (03:06→20:20)
[2019-10-02 07:30] VITALS: BP 108/72
[2019-10-02] MEDS: FLUOXETINE HCL 20 MG CAPSULE PO SCH (08:44)
[2019-10-02] MEDS: ACAMPROSATE 333 MG TABLET.DR PO SCH ×3 (08:44→20:20)
[2019-10-02] MEDS: THIAMINE 100MG TABLET PO SCH (08:44)
[2019-10-02 19:33] VITALS: BP 110/76
[2019-10-02] MEDS: QUETIAPINE 100MG TABLET PO SCH (20:18)
[2019-10-03] MEDS: LORazepam 1MG TABLET PO SCH ×4 (03:00→20:03)
[2019-10-03 07:16] VITALS: BP 109/70
[2019-10-03] MEDS: FLUOXETINE HCL 20 MG CAPSULE PO SCH (09:17)
[2019-10-03] MEDS: THIAMINE 100MG TABLET PO SCH (09:17)
[2019-10-03] MEDS: ACAMPROSATE 333 MG TABLET.DR PO SCH ×4 (09:17→20:03)
[2019-10-03] MEDS: ONDANSETRON ODT 4 MG PO PRN (09:23)
[2019-10-03 20:00] VITALS: BP 110/77
[2019-10-03] MEDS: QUETIAPINE 100MG TABLET PO SCH (20:03)
[2019-10-04] MEDS: LORazepam 1MG TABLET PO SCH ×5 (03:17→20:48)
[2019-10-04 07:42] VITALS: BP 116/84
[2019-10-04] MEDS: ACAMPROSATE 333 MG TABLET.DR PO SCH ×3 (09:05→20:48)
[2019-10-04] MEDS: THIAMINE 100MG TABLET PO SCH (09:05)
[2019-10-04] MEDS: FLUOXETINE HCL 20 MG CAPSULE PO SCH (10:04)
[2019-10-04 19:38] VITALS: BP 114/80
[2019-10-04] MEDS: ACETAMINOPHEN 325 MG TABLET PO PRN (20:48)
[2019-10-04] MEDS: QUETIAPINE 100MG TABLET PO SCH (20:49)
[2019-10-05] MEDS: LORazepam 1MG TABLET PO SCH ×4 (03:00→20:21)
[2019-10-05 07:43] VITALS: BP 114/78
[2019-10-05] MEDS: FLUOXETINE HCL 20 MG CAPSULE PO SCH (08:12)
[2019-10-05] MEDS: THIAMINE 100MG TABLET PO SCH (08:12)
[2019-10-05] MEDS: ACAMPROSATE 333 MG TABLET.DR PO SCH ×3 (08:15→21:05)
[2019-10-05] MEDS: ONDANSETRON ODT 4 MG PO PRN (10:56)
[2019-10-05 12:39] VITALS: BP 122/82
[2019-10-05] MEDS ORDERED: ACAM333T7 PO (13:39)
[2019-10-05] MEDS ORDERED: QUET100T PO (13:39)
[2019-10-05] MEDS ORDERED: FLUO20CA23 PO (13:39)
[2019-10-05] MEDS: ACETAMINOPHEN 325 MG TABLET PO PRN (16:16)
[2019-10-05 20:13] VITALS: BP 121/80
[2019-10-05] MEDS: QUETIAPINE 100MG TABLET PO SCH (20:21)
[2019-10-06] MEDS: LORazepam 1MG TABLET PO SCH ×2 (03:12→08:21)
[2019-10-06 07:44] VITALS: BP 116/82
[2019-10-06] MEDS: ACAMPROSATE 333 MG TABLET.DR PO SCH ×2 (08:21→08:24)
[2019-10-06] MEDS: FLUOXETINE HCL 20 MG CAPSULE PO SCH (08:21)
[2019-10-06] MEDS: THIAMINE 100MG TABLET PO SCH (08:21)
[2019-10-06] MEDS: ONDANSETRON ODT 4 MG PO PRN (08:52)
== END 2019-10-06 10:15 | disposition home or self-care (01) | DRG 885 ==
LOC: 3E 05:21
PROVIDERS: ADMIT Psychiatry & Neurology Psychosomatic Medicine; ATTEND Psychiatry & Neurology Psychosomatic Medicine
DX: F25.0 Schizoaffective disorder, bipolar type (principal); F10.239 Alcohol dependence with withdrawal, unspecified; R45.851 Suicidal ideations; E87.6 Hypokalemia; E83.51 Hypocalcemia; B19.20 Unspecified viral hepatitis C without hepatic coma; Z59.0 Homelessness; Z79.899 Other long term (current) drug therapy; I10 Essential (primary) hypertension; K21.9 Gastro-esophageal reflux disease without esophagitis; Z80.1 Family history of malignant neoplasm of trachea, bronchus and lung; Z82.5 Family history of asthma and other chronic lower respiratory diseases; Z91.5 Personal history of self-harm
CPT/HCPCS: 36415; 71045; 80048; 80061; 80076; 81003; 82140; 82607; 84439; 84443; 85025; 93005; Q0162

== ENCOUNTER 2019-10-06 17:48 | Emergency (ER) | payer MEDICAID ==
[~2019-10-06 17:48] MED LIST changes: +ACAM333T7 PO
--- NOTE | 2019-10-06 17:55 | NUR ---
PT COMBATIVE IN TRIAGE, NOT ANSWERING QUESTIONS, TAKING OFF MASK THEN GETTING ON SCALE AND REFUSING TO GET OFF. REFUSING MASK. PT YELLING AT STAFF AND HITTING FISTS TOGETHER. PT REFUSING TO SIT DOWN TO GET VITAL SIGNS. PT GRABBED TRASH CAN TO THROW UP BUT DID NOT VOMIT. PT BEGAN BEING AGRESSIVE WITH STAFF AGAIN. PT ESCORTED OFF PROPERTY BY SECURITY.
== END 2019-10-06 17:58 ==
LOC: ED 17:52
DX: F10.10 Alcohol abuse, uncomplicated (principal); Y90.0 Blood alcohol level of less than 20 mg/100 ml; Z53.21 Procedure and treatment not carried out due to patient leaving prior to being seen by health care provider

== ENCOUNTER 2019-10-11 01:41 | Emergency (ER) | payer MEDICAID ==
[~2019-10-11] VITALS: Ht 177.8 cm; Wt 70.0 kg
[2019-10-11 01:43] VITALS: BP 138/87
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
--- NOTE | 2019-10-11 01:56 | NUR ---
PT THREATNED TO THROW HIS SHOE AT THIS NURSE YELLING OBSENITIES, SECURITY CALLED
--- NOTE | 2019-10-11 01:59 | NUR ---
PT ESCORTED OFF PREMISIS SHOUTING OBCENITIES
== END 2019-10-11 02:02 | disposition left against medical advice (07) ==
LOC: ED 01:51
DX: F10.129 Alcohol abuse with intoxication, unspecified (principal); Z53.21 Procedure and treatment not carried out due to patient leaving prior to being seen by health care provider; Y90.9 Presence of alcohol in blood, level not specified

== ENCOUNTER 2019-10-13 04:07 | Emergency (ER) | payer MEDICAID ==
[~2019-10-13] VITALS: Ht 182.9 cm; Wt 78.0 kg
[2019-10-13 04:15] VITALS: BP 124/82
[2019-10-13] MEDS ORDERED: ACETAMINOPHEN 325 MG TABLET ONE (04:55)
[2019-10-13] MEDS ORDERED: ACETAMINOPHEN 325 MG TABLET PO ONE (05:00)
[2019-10-13] MEDS ORDERED: IBUPROFEN 600 MG TABLET ONE (05:16)
[2019-10-13] MEDS ORDERED: IBUPROFEN 600 MG TABLET PO ONE (05:30)
== END 2019-10-13 06:13 | disposition home or self-care (01) ==
LOC: ED 04:28
DX: S20.212A Contusion of left front wall of thorax, initial encounter (principal); I10 Essential (primary) hypertension; Z59.0 Homelessness; Z90.89 Acquired absence of other organs; X58.XXXA Exposure to other specified factors, initial encounter; Y93.89 Activity, other specified; Y92.488 Other paved roadways as the place of occurrence of the external cause; Y99.8 Other external cause status
CPT/HCPCS: 71046; 93005; 99283

== ENCOUNTER 2019-10-14 11:25 | Inpatient (IN) | payer MEDICAID ==
[~2019-10-14] VITALS: Ht 182.9 cm; Wt 78.2 kg
[2019-10-14] MEDS ORDERED: POLYETHYLENE GLYCOL 17 GM PACKET PO PRN (13:00)
[2019-10-14] MEDS ORDERED: DOCUSATE 100 MG CAPSULE PO PRN (13:00)
[2019-10-14] MEDS ORDERED: BISACODYL 10 MG SUPP PR PRN (13:00)
[2019-10-14] MEDS ORDERED: ACETAMINOPHEN 325 MG TABLET PO PRN (13:00)
[2019-10-14 15:55] VITALS: BP 128/73
[2019-10-14 19:59] VITALS: BP 125/78
[2019-10-14] MEDS: QUETIAPINE 200 MG TABLET PO SCH (20:41)
[2019-10-14] MEDS: ACAMPROSATE 333 MG TABLET.DR PO SCH (20:41)
[2019-10-14] MEDS: DIAZEPAM 10 MG TABLET PO SCH (20:41)
[2019-10-14] MEDS: ATORVASTATIN 40 MG TABLET PO SCH (20:41)
[2019-10-15] MEDS: ASPIRIN 81 MG TABLET EC PO SCH (06:04)
[2019-10-15 07:29] VITALS: BP 122/72
[2019-10-15] MEDS: FLUOXETINE HCL 20 MG CAPSULE PO SCH (08:24)
[2019-10-15] MEDS: DIAZEPAM 10 MG TABLET PO SCH ×2 (08:24→16:34)
[2019-10-15] MEDS: ACAMPROSATE 333 MG TABLET.DR PO SCH ×3 (08:25→20:51)
[2019-10-15 09:21] LABS: BASOPHILS # (AUTO) 0.01 x10^3/uL (0-0.1); BASOPHILS % (AUTO) 0 % (0-1); EOSINOPHILS # (AUTO) 0.22 x10^3/uL (0-0.4); EOSINOPHILS % (AUTO) 7 % (1-7); LYMPHOCYTES # (AUTO) 0.91 x10^3/uL (1-3.4); LYMPHOCYTES % (AUTO) 31 % (22-44); MD NO; MEAN CORPUSCULAR HEMOGLOBIN 30.7 pg (27.5-34.5); MEAN CORPUSCULAR HGB CONC 33.3 g/dL (33.2-36.2); MEAN CORPUSCULAR VOLUME 92.1 fL (81-97); MEAN PLATELET VOLUME 7.6 fL (7.4-10.4); MONOCYTES # (AUTO) 0.19 x10^3/uL (0.2-0.8); MONOCYTES % (AUTO) 7 % (2-9); NEUTROPHILS # (AUTO) 1.63 x10^3/uL (1.8-6.8); NEUTROPHILS % (AUTO) 55 % (42-75); PLATELET COUNT 206 x10^3/uL (130-400); RED BLOOD COUNT 4.51 x10^6/uL (4.38-5.82); RED CELL DISTRIBUTION WIDTH 16.1 % (9.4-14.8)
[2019-10-15 09:33] LABS: ALANINE AMINOTRANSFERASE 25 U/L (12-78); ALBUMIN 2.9 g/dL (3.4-5.0); ANION GAP 6 mmol/L (5-15); CALCIUM 8.7 mg/dL (8.5-10.1); CHLORIDE 107 mmol/L (98-107); CREATININE 0.86 mg/dL (0.7-1.3)
[2019-10-15 09:41] LABS: ALKALINE PHOSPHATASE 100 U/L (45-117); BILIRUBIN,TOTAL 0.8 mg/dL (0.2-1.0); CHOLESTEROL, TOTAL 134 mg/dL (140-239); FREE T4 (FREE THYROXINE) 0.86 ng/dL (0.76-1.46); HDL CHOL % 51 % (26-37); HDL CHOLESTEROL (DIRECT) 68 mg/dL (40-60); LDL CHOLESTEROL,CALCULATED 43 mg/dL (54-169); LDL/HDL RATIO 0.6 (0.5-3.0); TRIGLYCERIDES 116 mg/dL (50-200); VLDL CHOLESTEROL 23 mg/dL (0-25)
[2019-10-15 12:20] LABS: MICROSCOPIC NOT IND
[2019-10-15] MEDS: ONDANSETRON ODT 4 MG PO PRN (13:53)
[2019-10-15] MEDS ORDERED: CALCIUM CARBONATE 500 MG TAB.CHEW PO PRN (15:30)
[2019-10-15 19:17] VITALS: BP 120/85
[2019-10-15] MEDS: QUETIAPINE 200 MG TABLET PO SCH (20:51)
[2019-10-15] MEDS: ATORVASTATIN 40 MG TABLET PO SCH (20:51)
[2019-10-16] MEDS: ASPIRIN 81 MG TABLET EC PO SCH (05:54)
[2019-10-16 07:40] VITALS: BP 126/81
[2019-10-16] MEDS: ACAMPROSATE 333 MG TABLET.DR PO SCH ×3 (09:20→20:10)
[2019-10-16] MEDS: CYANOCOBALOMIN 100MCG TABLET PO SCH (09:21)
[2019-10-16] MEDS: FLUOXETINE HCL 20 MG CAPSULE PO SCH (09:21)
[2019-10-16] MEDS: FOLIC ACID 1 MG TABLET PO SCH (09:21)
[2019-10-16] MEDS: DIAZEPAM 10 MG TABLET PO PRN ×2 (09:26→16:53)
[2019-10-16 19:25] VITALS: BP 120/84
[2019-10-16] MEDS: QUETIAPINE 200 MG TABLET PO SCH (20:10)
[2019-10-16] MEDS: ATORVASTATIN 40 MG TABLET PO SCH (20:10)
[2019-10-17 07:38] VITALS: BP 123/85
[2019-10-17] MEDS: ACAMPROSATE 333 MG TABLET.DR PO SCH ×3 (09:31→21:13)
[2019-10-17] MEDS: CYANOCOBALOMIN 100MCG TABLET PO SCH (09:32)
[2019-10-17] MEDS: ASPIRIN 81 MG TABLET EC PO SCH (09:32)
[2019-10-17] MEDS: FOLIC ACID 1 MG TABLET PO SCH (09:32)
[2019-10-17] MEDS: FLUOXETINE HCL 20 MG CAPSULE PO SCH (09:32)
[2019-10-17] MEDS: hydrOXyzine 50MG TABLET PO PRN (10:05)
[2019-10-17] MEDS: LISINOPRIL 10 MG TABLET PO SCH (10:05)
[2019-10-17 19:50] VITALS: BP 123/85
[2019-10-17] MEDS ORDERED: IBUPROFEN 200 MG TABLET PO PRN (20:30)
[2019-10-17] MEDS: ATORVASTATIN 40 MG TABLET PO SCH (21:11)
[2019-10-17] MEDS: QUETIAPINE 200 MG TABLET PO SCH (21:12)
[2019-10-18 07:54] VITALS: BP 130/78
[2019-10-18] MEDS: ACAMPROSATE 333 MG TABLET.DR PO SCH ×3 (09:00→20:23)
[2019-10-18] MEDS: hydrOXyzine 50MG TABLET PO PRN (09:14)
[2019-10-18] MEDS: FOLIC ACID 1 MG TABLET PO SCH (09:15)
[2019-10-18] MEDS: LISINOPRIL 10 MG TABLET PO SCH (09:15)
[2019-10-18] MEDS: ASPIRIN 81 MG TABLET EC PO SCH (09:15)
[2019-10-18] MEDS: CYANOCOBALOMIN 100MCG TABLET PO SCH (09:15)
[2019-10-18] MEDS: FLUOXETINE HCL 20 MG CAPSULE PO SCH (09:15)
[2019-10-18] MEDS: ONDANSETRON ODT 4 MG PO PRN (10:54)
[2019-10-18] MEDS ORDERED: ACAM333T7 PO (13:38)
[2019-10-18] MEDS ORDERED: QUET200T PO (13:38)
[2019-10-18] MEDS ORDERED: LISI-167 PO (13:38)
[2019-10-18] MEDS ORDERED: ATOR40TA78 PO (13:38)
[2019-10-18] MEDS ORDERED: FLUO20CA23 PO (13:38)
[2019-10-18] MEDS ORDERED: CYAN100T2 PO (13:38)
[2019-10-18] MEDS ORDERED: ASPI81TA45 PO (13:38)
[2019-10-18 19:59] VITALS: BP 110/76
[2019-10-18] MEDS: ATORVASTATIN 40 MG TABLET PO SCH (20:22)
[2019-10-18] MEDS: QUETIAPINE 200 MG TABLET PO SCH (20:23)
[2019-10-19 07:57] VITALS: BP 123/83
[2019-10-19] MEDS: FOLIC ACID 1 MG TABLET PO SCH (08:26)
[2019-10-19] MEDS: ASPIRIN 81 MG TABLET EC PO SCH (08:26)
[2019-10-19] MEDS: LISINOPRIL 10 MG TABLET PO SCH (08:26)
[2019-10-19] MEDS: FLUOXETINE HCL 20 MG CAPSULE PO SCH (08:27)
[2019-10-19] MEDS: CYANOCOBALOMIN 100MCG TABLET PO SCH (08:28)
[2019-10-19] MEDS: ACAMPROSATE 333 MG TABLET.DR PO SCH (08:29)
== END 2019-10-19 09:25 | disposition home or self-care (01) | DRG 885 ==
LOC: 3E 14:49
PROVIDERS: ADMIT Psychiatry & Neurology Psychosomatic Medicine; ATTEND Hospitalist
DX: F25.0 Schizoaffective disorder, bipolar type (principal); R45.851 Suicidal ideations; F10.239 Alcohol dependence with withdrawal, unspecified; B18.2 Chronic viral hepatitis C; E78.5 Hyperlipidemia, unspecified; F15.10 Other stimulant abuse, uncomplicated; I10 Essential (primary) hypertension; Z88.8 Allergy status to other drugs, medicaments and biological substances; I25.10 Atherosclerotic heart disease of native coronary artery without angina pectoris; K21.9 Gastro-esophageal reflux disease without esophagitis; Z59.0 Homelessness; Z79.82 Long term (current) use of aspirin; Z79.899 Other long term (current) drug therapy; Z91.5 Personal history of self-harm
CPT/HCPCS: 36415; 80053; 80061; 81003; 82140; 84439; 84443; 85025; 93005; Q0162

== ENCOUNTER 2019-10-22 14:25 | Emergency (ER) | payer MEDICAID ==
[~2019-10-22] VITALS: Ht 185.4 cm; Wt 77.5 kg
[~2019-10-22 14:25] MED LIST changes: +CYAN100T22 PO; +QUET200T PO
[2019-10-22 14:31] VITALS: BP 133/91
--- NOTE | 2019-10-22 15:27 | NUR ---
PT STATES "I JUST NEED TO COOL DOWN A BIT AND MAYBE GET SOME WATER, BUT NOT TOO COLD OF WATER"
--- NOTE | 2019-10-22 15:55 | NUR ---
PT GIVEN WATER PER MD ORDER, PT TOLERATING WELL
[2019-11-26] MEDS ORDERED: MULT-449 PO ×2 (12:45)
[2019-11-26] MEDS ORDERED: ATOR40TA78 PO ×2 (12:45)
== END 2019-10-22 17:28 | disposition home or self-care (01) ==
LOC: ED 15:44
DX: F51.04 Psychophysiologic insomnia (principal); F41.9 Anxiety disorder, unspecified; R11.0 Nausea; I10 Essential (primary) hypertension; J44.9 Chronic obstructive pulmonary disease, unspecified; G40.909 Epilepsy, unspecified, not intractable, without status epilepticus; Z90.89 Acquired absence of other organs
CPT/HCPCS: 99283

== ENCOUNTER 2019-10-30 05:46 | Emergency (ER) | payer MEDICAID ==
[~2019-10-30] VITALS: Ht 182.9 cm; Wt 75.8 kg
[2019-10-30 05:50] VITALS: BP 128/85
--- NOTE | 2019-10-30 06:09 | NUR ---
Pt admits to consuming an unknown number of 4 [place] drinks and ambulated here for assistance.
--- NOTE | 2019-10-30 06:47 | NUR ---
rec bs report pt sleeping at this time resp normal equal rise of the chest
--- NOTE | 2019-10-30 06:52 | NUR ---
Report given to Cali ROBISON.
--- NOTE | 2019-10-30 07:21 | NUR ---
pt arouses to light verbal stimuli
[2019-11-26] MEDS ORDERED: MULT-449 PO ×2 (12:45)
[2019-11-26] MEDS ORDERED: ATOR40TA78 PO ×2 (12:45)
== END 2019-10-30 09:38 | disposition home or self-care (01) ==
LOC: ED 06:09
DX: F10.120 Alcohol abuse with intoxication, uncomplicated (principal); R41.82 Altered mental status, unspecified; J44.9 Chronic obstructive pulmonary disease, unspecified; I10 Essential (primary) hypertension; G40.909 Epilepsy, unspecified, not intractable, without status epilepticus; Y90.0 Blood alcohol level of less than 20 mg/100 ml
CPT/HCPCS: 99281

== ENCOUNTER 2019-11-11 11:50 | Emergency (ER) | payer MEDICAID ==
[~2019-11-11] VITALS: Ht 175.3 cm; Wt 76.2 kg
[~2019-11-11 11:50] MED LIST changes: +CYAN100T2 PO; -CYAN100T22 PO
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
--- NOTE | 2019-11-11 12:21 | NUR ---
JAE SECURED IN LOCKER
[2019-11-11] MEDS ORDERED: QUETIAPINE 25MG TABLET PO ONE (13:00)
[2019-11-11] MEDS ORDERED: QUETIAPINE 25MG TABLET ONE (13:12)
--- NOTE | 2019-11-11 14:02 | NUR ---
BREAK NOTE: PT. IS RESTING WITH THE SITTER OUTSIDE OF THE ROOM. NO CONCERNS AT THIS TIME.
[2019-11-11 14:47] LABS: BASOPHILS # (AUTO) 0.03 x10^3/uL (0-0.1); BASOPHILS % (AUTO) 1 % (0-1); EOSINOPHILS # (AUTO) 0.12 x10^3/uL (0-0.4); EOSINOPHILS % (AUTO) 3 % (1-7); LYMPHOCYTES # (AUTO) 1.86 x10^3/uL (1-3.4); LYMPHOCYTES % (AUTO) 45 % (22-44); MD NO; MEAN CORPUSCULAR HGB CONC 33.7 g/dL (33.2-36.2); MEAN CORPUSCULAR VOLUME 91.9 fL (81-97); MEAN PLATELET VOLUME 8.1 fL (7.4-10.4); MONOCYTES # (AUTO) 0.23 x10^3/uL (0.2-0.8); MONOCYTES % (AUTO) 6 % (2-9); NEUTROPHILS # (AUTO) 1.93 x10^3/uL (1.8-6.8); NEUTROPHILS % (AUTO) 46 % (42-75); PLATELET COUNT 241 x10^3/uL (130-400); RED BLOOD COUNT 4.72 x10^6/uL (4.38-5.82); RED CELL DISTRIBUTION WIDTH 15.8 % (9.4-14.8)
[2019-11-11 15:01] LABS: ALBUMIN 3.8 g/dL (3.4-5.0); ANION GAP 9 mmol/L (5-15); CALCIUM 8.4 mg/dL (8.5-10.1); CHLORIDE 108 mmol/L (98-107)
[2019-11-11 15:11] LABS: AMPHETAMINE SCREEN, URINE Negative (Negative); BARBITURATE SCREEN, URINE Negative (Negative); BENZODIAZEPINE SCREEN, URINE Positive (Negative); CANNABINOID SCREEN, URINE Negative (Negative); COCAINE SCREEN, URINE Negative (Negative); METHADONE SCREEN, URINE Negative (Negative); OPIATE SCREEN, URINE Negative (Negative)
[2019-11-11 15:14] LABS: ALANINE AMINOTRANSFERASE 27 U/L (12-78); ALKALINE PHOSPHATASE 101 U/L (45-117); BILIRUBIN,TOTAL 0.5 mg/dL (0.2-1.0); CREATININE 0.89 mg/dL (0.7-1.3); TOTAL PROTEIN 7.3 g/dL (6.4-8.2)
[2019-11-11 15:16] LABS: SALICYLATE LEVEL < 1.7 mg/dL (2.8-20.0)
--- NOTE | 2019-11-11 16:00 | NUR ---
Snack provided. safety precautions in place.
[2019-11-11 17:56] VITALS: BP 138/97
--- NOTE | 2019-11-11 17:57 | NUR ---
Report called to Zulema ROBISON, pt aware of transfer to [facility].
== END 2019-11-12 08:49 | disposition other institution (70) ==
LOC: ED 13:54
DX: R45.851 Suicidal ideations (principal)
CPT/HCPCS: 36415; 80053; 80307; 85025; 99284

== ENCOUNTER 2019-11-11 17:52 | Inpatient (IN) | payer MEDICAID ==
[~2019-11-11] VITALS: Ht 185.4 cm; Wt 77.0 kg
[2019-11-11] MEDS ORDERED: POLYETHYLENE GLYCOL 17 GM PACKET PO PRN (18:00)
[2019-11-11] MEDS ORDERED: BISACODYL 10 MG SUPP PR PRN (18:00)
[2019-11-11] MEDS ORDERED: DOCUSATE 100 MG CAPSULE PO PRN (18:00)
[2019-11-11 19:00] VITALS: BP 136/80
[2019-11-11 19:30] LABS: MICROSCOPIC NOT IND
[2019-11-11] MEDS ORDERED: PLEASE ENTER HEIGHT AND WEIGHT MC SCH (19:30)
[2019-11-11] MEDS: LORazepam 1MG TABLET PO SCH (20:08)
[2019-11-11] MEDS: ACETAMINOPHEN 325 MG TABLET PO PRN (20:09)
[2019-11-11] MEDS: QUETIAPINE 200 MG TABLET PO SCH (21:00)
[2019-11-12 01:14] VITALS: BP 136/80
[2019-11-12] MEDS: LORazepam 1MG TABLET PO SCH ×5 (04:00→21:00)
[2019-11-12 04:58] VITALS: BP 110/74
[2019-11-12 06:42] LABS: CHOL/HDL RATIO 1.9; FREE T4 (FREE THYROXINE) 1.05 ng/dL (0.76-1.46); LDL/HDL RATIO 0.7 (0.5-3.0)
[2019-11-12 07:09] VITALS: BP 117/79
[2019-11-12] MEDS: LISINOPRIL 10 MG TABLET PO SCH (09:25)
[2019-11-12] MEDS: FLUOXETINE HCL 20 MG CAPSULE PO SCH (09:27)
[2019-11-12 19:38] VITALS: BP 101/62
[2019-11-12] MEDS: QUETIAPINE 200 MG TABLET PO SCH (20:00)
[2019-11-13] MEDS: LORazepam 1MG TABLET PO SCH ×3 (06:09→20:47)
[2019-11-13 07:11] VITALS: BP 115/79
[2019-11-13] MEDS: FLUOXETINE HCL 20 MG CAPSULE PO SCH (09:10)
[2019-11-13] MEDS: LISINOPRIL 10 MG TABLET PO SCH (09:11)
[2019-11-13 12:51] VITALS: BP 115/80
[2019-11-13 19:25] VITALS: BP 117/80
[2019-11-13] MEDS: QUETIAPINE 200 MG TABLET PO SCH (20:47)
[2019-11-14 07:05] VITALS: BP 119/75
[2019-11-14] MEDS: FLUOXETINE HCL 20 MG CAPSULE PO SCH (08:33)
[2019-11-14] MEDS: LORazepam 1MG TABLET PO SCH ×2 (08:33→20:18)
[2019-11-14] MEDS: LISINOPRIL 10 MG TABLET PO SCH (08:34)
[2019-11-14 16:45] VITALS: BP 134/75
[2019-11-14] MEDS: LORazepam 1MG TABLET PO PRN (16:49)
[2019-11-14 19:56] VITALS: BP 124/78
[2019-11-14] MEDS: QUETIAPINE 200 MG TABLET PO SCH (20:18)
[2019-11-15 07:36] VITALS: BP 105/69
[2019-11-15] MEDS: LORazepam 1MG TABLET PO PRN (08:07)
[2019-11-15] MEDS: LISINOPRIL 10 MG TABLET PO SCH (08:07)
[2019-11-15] MEDS: FLUOXETINE HCL 20 MG CAPSULE PO SCH (08:07)
[2019-11-15 20:00] VITALS: BP 131/83
[2019-11-15] MEDS: QUETIAPINE 200 MG TABLET PO SCH (20:03)
[2019-11-16 07:26] VITALS: BP 115/82
[2019-11-16] MEDS: LISINOPRIL 10 MG TABLET PO SCH (08:22)
[2019-11-16] MEDS: FLUOXETINE HCL 20 MG CAPSULE PO SCH (08:24)
[2019-11-16] MEDS: ONDANSETRON ODT 4 MG PO PRN (09:01)
[2019-11-16] MEDS ORDERED: PROMETHAZINE 25MG TABLET PO PRN (12:00)
[2019-11-16] MEDS: ACETAMINOPHEN 325 MG TABLET PO PRN (13:44)
[2019-11-16 15:30] LABS: BASOPHILS # (AUTO) 0.06 x10^3/uL (0-0.1); BASOPHILS % (AUTO) 1 % (0-1); EOSINOPHILS # (AUTO) 0.14 x10^3/uL (0-0.4); EOSINOPHILS % (AUTO) 3 % (1-7); LYMPHOCYTES # (AUTO) 1.54 x10^3/uL (1-3.4); LYMPHOCYTES % (AUTO) 28 % (22-44); MD NO; MEAN CORPUSCULAR HEMOGLOBIN 30.5 pg (27.5-34.5); MEAN CORPUSCULAR HGB CONC 32.6 g/dL (33.2-36.2); MEAN CORPUSCULAR VOLUME 93.6 fL (81-97); MEAN PLATELET VOLUME 8.1 fL (7.4-10.4); MONOCYTES # (AUTO) 0.36 x10^3/uL (0.2-0.8); MONOCYTES % (AUTO) 7 % (2-9); NEUTROPHILS # (AUTO) 3.36 x10^3/uL (1.8-6.8); NEUTROPHILS % (AUTO) 62 % (42-75); PLATELET COUNT 222 x10^3/uL (130-400); RED BLOOD COUNT 4.88 x10^6/uL (4.38-5.82); RED CELL DISTRIBUTION WIDTH 16.2 % (9.4-14.8)
[2019-11-16 15:32] LABS: ALBUMIN 3.8 g/dL (3.4-5.0); ANION GAP 6 mmol/L (5-15); CALCIUM 8.5 mg/dL (8.5-10.1); CHLORIDE 103 mmol/L (98-107)
[2019-11-16 15:35] LABS: ALANINE AMINOTRANSFERASE 29 U/L (12-78); ALKALINE PHOSPHATASE 91 U/L (45-117); BILIRUBIN, DIRECT 0.1 mg/dL (0.1-0.2); BILIRUBIN,INDIRECT 0.3 mg/dL (0.0-2.0); BILIRUBIN,TOTAL 0.4 mg/dL (0.2-1.0); TOTAL PROTEIN 7.6 g/dL (6.4-8.2)
[2019-11-16 18:57] VITALS: BP 121/73
[2019-11-16] MEDS: QUETIAPINE 200 MG TABLET PO SCH (20:02)
[2019-11-17 08:02] VITALS: BP 114/77
[2019-11-17] MEDS: LISINOPRIL 10 MG TABLET PO SCH (08:28)
[2019-11-17] MEDS: LORazepam 1MG TABLET PO PRN (08:28)
[2019-11-17] MEDS: FLUOXETINE HCL 20 MG CAPSULE PO SCH (08:28)
[2019-11-17 19:46] VITALS: BP 124/84
[2019-11-17] MEDS: QUETIAPINE 200 MG TABLET PO SCH (20:10)
[2019-11-18 07:00] VITALS: BP 117/71
[2019-11-18] MEDS: LISINOPRIL 10 MG TABLET PO SCH (07:47)
[2019-11-18] MEDS: FLUOXETINE HCL 20 MG CAPSULE PO SCH (07:48)
[2019-11-18] MEDS: ONDANSETRON ODT 4 MG PO PRN (09:27)
[2019-11-18] MEDS ORDERED: QUET200T PO (09:31)
[2019-11-18] MEDS ORDERED: LISI-167 PO (09:31)
[2019-11-18] MEDS ORDERED: FLUO20CA23 PO (09:31)
== END 2019-11-18 12:37 | disposition home or self-care (01) | DRG 885 ==
LOC: 3E 19:10
PROVIDERS: ADMIT Psychiatry & Neurology Psychosomatic Medicine; ATTEND Psychiatry & Neurology Psychosomatic Medicine
DX: F25.0 Schizoaffective disorder, bipolar type (principal); R45.851 Suicidal ideations; F10.239 Alcohol dependence with withdrawal, unspecified; F10.229 Alcohol dependence with intoxication, unspecified; B19.20 Unspecified viral hepatitis C without hepatic coma; F15.10 Other stimulant abuse, uncomplicated; F41.9 Anxiety disorder, unspecified; I10 Essential (primary) hypertension; K21.9 Gastro-esophageal reflux disease without esophagitis; Z79.82 Long term (current) use of aspirin; Z79.899 Other long term (current) drug therapy; Z80.1 Family history of malignant neoplasm of trachea, bronchus and lung
CPT/HCPCS: 36415; Q0169; 76700; 80048; 80061; 80076; 81003; 82140; 82150; 83690; 84439; 84443; 85025; 93005; Q0162

== ENCOUNTER 2019-11-19 00:13 | Emergency (ER) | payer MEDICAID ==
[~2019-11-19] VITALS: Ht 172.7 cm; Wt 77.3 kg
[2019-11-19 00:15] VITALS: BP 111/78
--- NOTE | 2019-11-19 00:44 | NUR ---
REPORT GIVEN TO LIANE ROBISON.
--- NOTE | 2019-11-19 01:14 | NUR ---
Report received from RICKI Lopez. This RN to assume care.
--- NOTE | 2019-11-19 01:27 | NUR ---
Discharge instructions given. Patient unwilling to cooperate. Security called to escort patient out. Patient ambulatory with a steady gait. Belongings with patient.
== END 2019-11-19 01:35 | disposition home or self-care (01) ==
LOC: ED 01:20
DX: F10.129 Alcohol abuse with intoxication, unspecified (principal); Z72.9 Problem related to lifestyle, unspecified; I10 Essential (primary) hypertension; J44.9 Chronic obstructive pulmonary disease, unspecified; G40.909 Epilepsy, unspecified, not intractable, without status epilepticus; K21.9 Gastro-esophageal reflux disease without esophagitis; Z87.891 Personal history of nicotine dependence; Z86.19 Personal history of other infectious and parasitic diseases; Y90.0 Blood alcohol level of less than 20 mg/100 ml
CPT/HCPCS: 99281

== ENCOUNTER 2019-11-20 19:53 | Emergency (ER) | payer MEDICAID ==
[~2019-11-20] VITALS: Ht 182.9 cm; Wt 72.4 kg
[2019-11-20] MEDS ORDERED: LORazepam 1MG TABLET ONE (20:30)
[2019-11-20] MEDS ORDERED: LORazepam 1MG TABLET PO ONE (20:30)
--- NOTE | 2019-11-20 20:34 | NUR ---
pt changed into gown. belongings removed, placed in a bleongings bag in psych locker. Pt denies any further needs or concerns at this time.
[2019-11-20 20:52] LABS: BASOPHILS # (AUTO) 0.06 x10^3/uL (0-0.1); BASOPHILS % (AUTO) 1 % (0-1); EOSINOPHILS # (AUTO) 0.06 x10^3/uL (0-0.4); EOSINOPHILS % (AUTO) 1 % (1-7); LYMPHOCYTES # (AUTO) 1.87 x10^3/uL (1-3.4); LYMPHOCYTES % (AUTO) 24 % (22-44); MD NO; MEAN CORPUSCULAR HEMOGLOBIN 30.3 pg (27.5-34.5); MEAN CORPUSCULAR HGB CONC 32.6 g/dL (33.2-36.2); MEAN CORPUSCULAR VOLUME 92.8 fL (81-97); MEAN PLATELET VOLUME 8.2 fL (7.4-10.4); MONOCYTES # (AUTO) 0.93 x10^3/uL (0.2-0.8); MONOCYTES % (AUTO) 12 % (2-9); NEUTROPHILS # (AUTO) 4.98 x10^3/uL (1.8-6.8); NEUTROPHILS % (AUTO) 63 % (42-75); PLATELET COUNT 210 x10^3/uL (130-400); RED CELL DISTRIBUTION WIDTH 16.4 % (9.4-14.8)
[2019-11-20 20:56] LABS: ALANINE AMINOTRANSFERASE 31 U/L (12-78); ANION GAP 6 mmol/L (5-15); CALCIUM 8.3 mg/dL (8.5-10.1); CHLORIDE 100 mmol/L (98-107); CREATININE 1.05 mg/dL (0.7-1.3)
[2019-11-20 20:58] LABS: ALKALINE PHOSPHATASE 88 U/L (45-117); BILIRUBIN,TOTAL 1.2 mg/dL (0.2-1.0); SALICYLATE LEVEL < 1.7 mg/dL (2.8-20.0); TOTAL PROTEIN 7.7 g/dL (6.4-8.2)
--- NOTE | 2019-11-20 21:09 | NUR ---
PT ATTEMPTED TO PROVIDED A URINE SAMPLE, UNABLE TO AT THIS TIME. STATES "I CAN'T GO YET". URINE SAMPLE CUP AT BEDSIDE. PT DENIES ANY FURTHER NEEDS OR CONCERNS. PROVIDED WITH WARM BLANKET.
[2019-11-20 21:49] LABS: AMPHETAMINE SCREEN, URINE Negative (Negative); BARBITURATE SCREEN, URINE Negative (Negative); BENZODIAZEPINE SCREEN, URINE Positive (Negative); CANNABINOID SCREEN, URINE Negative (Negative); COCAINE SCREEN, URINE Negative (Negative); METHADONE SCREEN, URINE Negative (Negative); OPIATE SCREEN, URINE Negative (Negative)
--- NOTE | 2019-11-20 22:06 | NUR ---
PT RESUESTING UPDATE ON PLAN OF CARE. ERP NOTIFIED, BUT UNAVAILABLE AT THIS TIME. PT AWARE, DENIES ANY FURTHER NEEDS OR CONCERNS AT THIS TIME.
[2019-11-20] MEDS ORDERED: QUETIAPINE 100MG TABLET ONE (22:20)
--- NOTE | 2019-11-20 22:29 | NUR ---
SOC CALLED AND NEW CONSULT INITIATED. BOT [id number] PLACED IN ROOM.
[2019-11-20] MEDS ORDERED: QUETIAPINE 100MG TABLET PO SCH (22:30)
--- NOTE | 2019-11-20 22:30 | NUR ---
TELEPSYCH MONITOR ACTIVE AND AT BEDSIDE. PT DENIES ANY CURRENT NEEDS OR CONCERNS.
--- NOTE | 2019-11-21 02:32 | NUR ---
PT SLEEPING SOUNDLY, AROUSES TO VERBAL STIMULI. DENIES ANY NEEDS OR CONCERNS AT THIS TIME.
--- NOTE | 2019-11-21 02:39 | NUR ---
packet sent to [facility], who in turn denied pt due to the need for prior authorization. Unable to obtain due to the insurance company being closed on the weekend.
--- NOTE | 2019-11-21 03:00 | NUR ---
packets faxed to [facility], [facility], [facility].
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
--- NOTE | 2019-11-21 06:12 | NUR ---
PT CONTINUES SLEEPING SOUNDLY, SITTER IN DIRECT LINE OF SIGHT.
--- NOTE | 2019-11-21 07:00 | NUR ---
Took report from Rowan Douglas RN, assume care at this time.
--- NOTE | 2019-11-21 07:00 | NUR ---
PT SLEEPING RR EVEN UNLABORED. ROOM IS SAFE AND SECURE. KASSIE SITTER OUTSIDE ROOM
--- NOTE | 2019-11-21 08:46 | NUR ---
ED DIET TRAY GIVEN
--- NOTE | 2019-11-21 11:12 | NUR ---
Spoke with Dr Gibbons regarding this pt, he accepted this pt as soon as his insurance gives the admit authorization. ED and House Sup notified.
--- NOTE | 2019-11-21 11:20 | NUR ---
[facility]HLYN CURRIE CALLED ED, STATED THEY NEED TO GET AUTHORIZATION FROM INSURANCE BEFORE CAN ACCEPT PT. THEY ARE UNABLE TO DO SO UNTIL FRIDAY. THEY WILL CALL ONCE THEY GET INSURANCE APPROVAL
--- NOTE | 2019-11-21 12:10 | NUR ---
TASK RN COVERING MEAL BREAK. PT RESTING COMFORTABLY, NAD. SITTER AT DOORWAY.
--- NOTE | 2019-11-21 12:34 | NUR ---
ED DIET TRAY ORDERED.
--- NOTE | 2019-11-21 16:55 | NUR ---
Diet tray ordered, reassesed pt for SI. pt calm in bed, room is safe and secure. karolina sitter outside room
[2019-11-21] MEDS ORDERED: QUETIAPINE 100MG TABLET ONE (19:40)
[2019-11-21] MEDS: QUETIAPINE 100MG TABLET PO SCH ×2 (20:05→21:00)
--- NOTE | 2019-11-21 20:09 | NUR ---
PT STATES HE PLANS TO USE "PAIN PILLS AND A BOTTLE" TO END HIS LIFE. "MY JUST SO I'M NOT FEELING TOO WELL." PT HAD ASKED FOR HIS SEROQUEL BECAUSE HE WAS "STARTING TO HEAR VOICES." PT STATED THEY TELL HIM "ALL SORTS OF THINGS" INCLUDING TELLING HIM TO HARM HIMSELF. PT DENIES HI. PT IS CALM AND COOPERATIVE ASKING FOR FOOD, AMBULATORY TO BATHROOM, AND REMAINS IN VIEW OF THE SITTER.
--- NOTE | 2019-11-21 22:02 | NUR ---
PT LAYING IN BED, EYES CLOSED, RESPIRATIONS EVEN AND UNLABORED. CALL LIGHT IN REACH, IN VIEW OF SITTER. LIGHTS OF TO PROMOTE REST. ALL NEEDS MET AT THIS TIME.
--- NOTE | 2019-11-22 02:26 | NUR ---
HOSPITAL BED REQUESTED. PT REMAINS SLEEPING, POSITIONING SELF FOR COMFORT. IN VIEW OF THE SITTER.
--- NOTE | 2019-11-22 04:49 | NUR ---
PT REMAINS SLEEPING.
--- NOTE | 2019-11-22 06:57 | NUR ---
BEDSIDE REPORT GIVEN TO RICKI LINTON.
--- NOTE | 2019-11-22 07:08 | NUR ---
RECEIVED REPORT FROM DELORES ROBISON. PT RESTING WITH EYES CLOSED IN DIRECT VIEW OF SITTER. ROOM EQUIPMENT SECURED BEHIND PULL DOWN DOORS.
[2019-11-22 08:23] VITALS: BP 127/90
--- NOTE | 2019-11-22 12:04 | NUR ---
REPORT TO KWAN ROBISON. PT TO BE TRANSFERRED TO [facility]
--- NOTE | 2019-11-22 12:44 | NUR ---
AWAITING TRANSPORT TO [facility]
== END 2019-11-22 21:30 | disposition other institution (70) ==
LOC: ED 11-21 02:12
DX: R45.851 Suicidal ideations (principal); R44.0 Auditory hallucinations; I10 Essential (primary) hypertension; J44.9 Chronic obstructive pulmonary disease, unspecified; Z91.14 Patient's other noncompliance with medication regimen; Z90.89 Acquired absence of other organs; Z87.891 Personal history of nicotine dependence
CPT/HCPCS: 36415; 80053; 80307; 85025; 99284

== ENCOUNTER 2019-11-22 11:43 | Inpatient (IN) | payer MEDICAID ==
[~2019-11-22] VITALS: Ht 182.9 cm; Wt 74.8 kg
[2019-11-22] MEDS ORDERED: ACETAMINOPHEN 325 MG TABLET PO PRN (12:00)
[2019-11-22] MEDS ORDERED: BISACODYL 10 MG SUPP PR PRN (12:00)
[2019-11-22] MEDS ORDERED: ONDANSETRON ODT 4 MG PO PRN (12:00)
[2019-11-22] MEDS ORDERED: POLYETHYLENE GLYCOL 17 GM PACKET PO PRN (12:00)
[2019-11-22] MEDS ORDERED: DOCUSATE 100 MG CAPSULE PO PRN (12:00)
[2019-11-22 14:00] VITALS: BP 131/81
[2019-11-22] MEDS ORDERED: LORazepam 1MG TABLET PO PRN (15:00)
[2019-11-22] MEDS: IBUPROFEN 200 MG TABLET PO PRN (17:59)
[2019-11-22 19:05] VITALS: BP 139/87
[2019-11-22] MEDS: ATORVASTATIN 40 MG TABLET PO SCH (19:44)
[2019-11-22] MEDS: QUETIAPINE 200 MG TABLET PO SCH (19:44)
[2019-11-23] MEDS ORDERED: ASPIRIN 81 MG TABLET EC PO SCH (06:00)
[2019-11-23 07:00] VITALS: BP 108/75
[2019-11-23] MEDS: MULTIVITAMIN 1 TABLET PO SCH (08:39)
[2019-11-23] MEDS: ASPIRIN 81 MG TABLET EC PO SCH (08:39)
[2019-11-23] MEDS: THIAMINE 100MG TABLET PO SCH (08:39)
[2019-11-23] MEDS: FLUOXETINE HCL 20 MG CAPSULE PO SCH (08:39)
[2019-11-23] MEDS: FOLIC ACID 1 MG TABLET PO SCH (08:39)
[2019-11-23] MEDS: LISINOPRIL 10 MG TABLET PO SCH (08:39)
[2019-11-23 19:06] VITALS: BP 129/83
[2019-11-23] MEDS: QUETIAPINE 200 MG TABLET PO SCH (20:09)
[2019-11-23] MEDS: ATORVASTATIN 40 MG TABLET PO SCH (20:09)
[2019-11-24 07:25] VITALS: BP 113/78
[2019-11-24] MEDS: LISINOPRIL 10 MG TABLET PO SCH (08:34)
[2019-11-24] MEDS: THIAMINE 100MG TABLET PO SCH (08:34)
[2019-11-24] MEDS: ASPIRIN 81 MG TABLET EC PO SCH (08:34)
[2019-11-24] MEDS: MULTIVITAMIN 1 TABLET PO SCH (08:34)
[2019-11-24] MEDS: FOLIC ACID 1 MG TABLET PO SCH (08:34)
[2019-11-24] MEDS: FLUOXETINE HCL 20 MG CAPSULE PO SCH (08:40)
[2019-11-24] MEDS: IBUPROFEN 200 MG TABLET PO PRN (18:28)
[2019-11-24 19:39] VITALS: BP 122/83
[2019-11-24] MEDS: ATORVASTATIN 40 MG TABLET PO SCH (19:55)
[2019-11-24] MEDS: QUETIAPINE 200 MG TABLET PO SCH (19:55)
[2019-11-25 07:01] VITALS: BP 100/64
[2019-11-25] MEDS: FOLIC ACID 1 MG TABLET PO SCH (08:06)
[2019-11-25] MEDS: MULTIVITAMIN 1 TABLET PO SCH (08:06)
[2019-11-25] MEDS: FLUOXETINE HCL 20 MG CAPSULE PO SCH (08:06)
[2019-11-25] MEDS: ASPIRIN 81 MG TABLET EC PO SCH (08:06)
[2019-11-25] MEDS: THIAMINE 100MG TABLET PO SCH (08:06)
[2019-11-25] MEDS: LISINOPRIL 10 MG TABLET PO SCH (08:06)
[2019-11-25] MEDS: IBUPROFEN 200 MG TABLET PO PRN (17:43)
[2019-11-25 19:09] VITALS: BP 117/82
[2019-11-25] MEDS: QUETIAPINE 200 MG TABLET PO SCH (20:00)
[2019-11-25] MEDS: ATORVASTATIN 40 MG TABLET PO SCH (20:01)
[2019-11-26 07:00] VITALS: BP 115/77
[2019-11-26] MEDS: THIAMINE 100MG TABLET PO SCH (08:13)
[2019-11-26] MEDS: FOLIC ACID 1 MG TABLET PO SCH (08:13)
[2019-11-26] MEDS: LISINOPRIL 10 MG TABLET PO SCH (08:13)
[2019-11-26] MEDS: FLUOXETINE HCL 20 MG CAPSULE PO SCH (08:13)
[2019-11-26] MEDS: MULTIVITAMIN 1 TABLET PO SCH (08:13)
[2019-11-26] MEDS: ASPIRIN 81 MG TABLET EC PO SCH (08:13)
[2019-11-26] MEDS ORDERED: LISI-167 PO (12:45)
[2019-11-26] MEDS ORDERED: ASPI81TA45 PO (12:45)
[2019-11-26] MEDS ORDERED: MULT-449 PO (12:45)
[2019-11-26] MEDS ORDERED: QUET200T PO (12:45)
[2019-11-26] MEDS ORDERED: ATOR40TA78 PO (12:45)
[2019-11-26] MEDS ORDERED: FLUO20CA23 PO (12:45)
[2019-11-26] MEDS: IBUPROFEN 200 MG TABLET PO PRN (14:33)
[2019-11-26] MEDS: ATORVASTATIN 40 MG TABLET PO SCH (19:44)
[2019-11-26] MEDS: QUETIAPINE 200 MG TABLET PO SCH (19:44)
[2019-11-26 19:53] VITALS: BP 118/78
[2019-11-27 07:10] VITALS: BP 120/85
[2019-11-27] MEDS: FLUOXETINE HCL 20 MG CAPSULE PO SCH (08:41)
[2019-11-27] MEDS: THIAMINE 100MG TABLET PO SCH (08:41)
[2019-11-27] MEDS: FOLIC ACID 1 MG TABLET PO SCH (08:42)
[2019-11-27] MEDS: ASPIRIN 81 MG TABLET EC PO SCH (08:42)
[2019-11-27] MEDS: LISINOPRIL 10 MG TABLET PO SCH (08:42)
[2019-11-27] MEDS: MULTIVITAMIN 1 TABLET PO SCH (08:42)
== END 2019-11-27 09:40 | disposition home or self-care (01) | DRG 885 ==
LOC: 3E 13:02
PROVIDERS: ADMIT Psychiatry & Neurology Psychosomatic Medicine; ATTEND Psychiatry & Neurology Psychosomatic Medicine
DX: F25.0 Schizoaffective disorder, bipolar type (principal); R45.851 Suicidal ideations; F15.20 Other stimulant dependence, uncomplicated; I10 Essential (primary) hypertension; K21.9 Gastro-esophageal reflux disease without esophagitis; E78.5 Hyperlipidemia, unspecified; B19.20 Unspecified viral hepatitis C without hepatic coma; F10.20 Alcohol dependence, uncomplicated; Z59.0 Homelessness; Z79.82 Long term (current) use of aspirin; Z79.899 Other long term (current) drug therapy; Z82.5 Family history of asthma and other chronic lower respiratory diseases; Z80.1 Family history of malignant neoplasm of trachea, bronchus and lung; Z81.8 Family history of other mental and behavioral disorders; Z88.8 Allergy status to other drugs, medicaments and biological substances
CPT/HCPCS: 93005; Q0162

== ENCOUNTER 2019-11-28 14:09 | Emergency (ER) | payer MEDICAID ==
[~2019-11-28] VITALS: Ht 185.4 cm; Wt 77.4 kg
[~2019-11-28 14:09] MED LIST changes: +MULT-449 PO
--- NOTE | 2019-11-28 14:35 | NUR ---
THIS TECH DID EKG
--- NOTE | 2019-11-28 14:37 | NUR ---
PT C/O EXPERIENCING PALPITATIONS THAT STARTED 2 HOURS AGO.
--- NOTE | 2019-11-28 15:01 | NUR ---
patient report from break RN. patient in bed. states he came to er because "my heart was beating to fast".
[2019-11-28 15:02] LABS: BASOPHILS # (AUTO) 0.06 x10^3/uL (0-0.1); BASOPHILS % (AUTO) 1 % (0-1); EOSINOPHILS % (AUTO) 2 % (1-7); LYMPHOCYTES # (AUTO) 1.52 x10^3/uL (1-3.4); LYMPHOCYTES % (AUTO) 25 % (22-44); MD NO; MEAN CORPUSCULAR HEMOGLOBIN 30.9 pg (27.5-34.5); MEAN CORPUSCULAR HGB CONC 33.6 g/dL (33.2-36.2); MEAN CORPUSCULAR VOLUME 91.9 fL (81-97); MEAN PLATELET VOLUME 8.2 fL (7.4-10.4); MONOCYTES # (AUTO) 0.36 x10^3/uL (0.2-0.8); MONOCYTES % (AUTO) 6 % (2-9); NEUTROPHILS # (AUTO) 4.05 x10^3/uL (1.8-6.8); NEUTROPHILS % (AUTO) 67 % (42-75); PLATELET COUNT 214 x10^3/uL (130-400); RED BLOOD COUNT 4.55 x10^6/uL (4.38-5.82); RED CELL DISTRIBUTION WIDTH 15.3 % (9.4-14.8)
[2019-11-28 15:10] LABS: ALBUMIN 4.1 g/dL (3.4-5.0); ANION GAP 6 mmol/L (5-15); CALCIUM 8.3 mg/dL (8.5-10.1); CHLORIDE 102 mmol/L (98-107); CREATININE 1.15 mg/dL (0.7-1.3)
[2019-11-28 15:15] LABS: TROPONIN I < 0.015 ng/mL (0.000-0.045)
[2019-11-28 15:26] VITALS: BP 138/78
== END 2019-11-28 15:35 | disposition home or self-care (01) ==
LOC: ED 15:28
DX: R00.2 Palpitations (principal); I10 Essential (primary) hypertension; J44.9 Chronic obstructive pulmonary disease, unspecified; Z90.89 Acquired absence of other organs
CPT/HCPCS: 36415; 80048; 82040; 84484; 85025; 93005; 99284

== ENCOUNTER 2019-11-30 10:41 | Emergency (ER) | payer MEDICAID ==
--- NOTE | 2019-11-30 11:22 | NUR ---
C/O "MY HEART'S BEATING FASTER THAN NORMAL, I HAVE CHEST PAIN, MY HEADS ALL CLOGGED UP, THE INFECTION ON MY FOOT IS GETTING LARGER, I NEED TO GO TO BEHAVIORAL HEALTH." STATES HIS "ANXIETY IS PEAKING" ADMITS TO ETOH INTAKE YESTERDAY - UNABLE TO RECALL AMOUNT OF CROWN ROYAL, VODKA "AND PROBABLY SOMETHING ELSE"
[2019-11-30] MEDS ORDERED: LISI10TA2 PO (11:25)
--- NOTE | 2019-11-30 11:30 | NUR ---
TO RADIOLOGY PER [facility]
[2019-11-30 11:43] LABS: MEAN CORPUSCULAR HEMOGLOBIN 30.9 pg (27.5-34.5); MEAN CORPUSCULAR HGB CONC 33.3 g/dL (33.2-36.2); MEAN PLATELET VOLUME 8.2 fL (7.4-10.4); PLATELET COUNT 264 x10^3/uL (130-400); RED BLOOD COUNT 4.24 x10^6/uL (4.38-5.82); RED CELL DISTRIBUTION WIDTH 15.9 % (9.4-14.8)
[2019-11-30 11:47] LABS: ALANINE AMINOTRANSFERASE 39 U/L (12-78); ALBUMIN 4.1 g/dL (3.4-5.0); ANION GAP 12 mmol/L (5-15); CHLORIDE 103 mmol/L (98-107); CREATININE 0.97 mg/dL (0.7-1.3)
[2019-11-30 11:51] LABS: BASOPHILS # (AUTO) 0.09 x10^3/uL (0-0.1); BASOPHILS % (AUTO) 2 % (0-1); EOSINOPHILS # (AUTO) 0.03 x10^3/uL (0-0.4); EOSINOPHILS % (AUTO) 1 % (1-7); LYMPHOCYTES # (AUTO) 1.33 x10^3/uL (1-3.4); LYMPHOCYTES % (AUTO) 25 % (22-44); MONOCYTES % (AUTO) 11 % (2-9); NEUTROPHILS # (AUTO) 3.35 x10^3/uL (1.8-6.8); NEUTROPHILS % (AUTO) 62 % (42-75)
[2019-11-30 11:52] LABS: ALKALINE PHOSPHATASE 94 U/L (45-117); BILIRUBIN,TOTAL 0.9 mg/dL (0.2-1.0); TOTAL PROTEIN 7.2 g/dL (6.4-8.2); TROPONIN I < 0.015 ng/mL (0.000-0.045)
[2019-11-30 11:53] LABS: MD NO
--- NOTE | 2019-11-30 13:00 | NUR ---
PT REQUESTING ADMISSION TO BEHAVIORAL HEALTH; WILL NOTIFY ERP.
[2019-11-30 13:10] VITALS: BP 114/68
--- NOTE | 2019-11-30 13:11 | NUR ---
DC INSTRUCTIONS DISCUSSED W/ PT. PT UNHAPPY ABOUT BEING DISCHARGED. PT AMBULATORY TO DC AREA W/ STEADY GAIT.
== END 2019-11-30 13:12 | disposition home or self-care (01) ==
LOC: ED 11:04
DX: R07.89 Other chest pain (principal); F10.220 Alcohol dependence with intoxication, uncomplicated; R06.00 Dyspnea, unspecified; R11.2 Nausea with vomiting, unspecified; I10 Essential (primary) hypertension; G40.909 Epilepsy, unspecified, not intractable, without status epilepticus; Z90.89 Acquired absence of other organs; Z79.899 Other long term (current) drug therapy; Z88.8 Allergy status to other drugs, medicaments and biological substances; Y90.0 Blood alcohol level of less than 20 mg/100 ml
CPT/HCPCS: 36415; 71046; 80053; 80307; 84484; 85025; 93005; 99285

== ENCOUNTER 2019-12-06 07:39 | Emergency (ER) | payer MEDICAID ==
[~2019-12-06] VITALS: Ht 185.4 cm; Wt 76.1 kg
[~2019-12-06 07:39] MED LIST changes: +LISI10TA2 PO
--- NOTE | 2019-12-06 07:41 | NUR ---
NOT IN LOBBY X 1
--- NOTE | 2019-12-06 07:57 | NUR ---
FIRST CONTACT WITH PT. PT WAS EATING POTATOES THIS AM, FEELS LIKE A PIECE GOT STUCK. HAS BEEN UNABLE TO DRINK SINCE. 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 PT'S AOX4. RESPS EVEN AND UNLABORED. PT IS ABLE TO DRINK SOME WATER IN ROOM AT THIS TIME WITH PA AND THIS RN. PT DENIES DEFICULLTY BREATHING/PAIN. BP/SPO2 MONITORS IN PLACE. CALL LIGHT WITHIN REACH.
[2019-12-06 08:34] VITALS: BP 130/85
--- NOTE | 2019-12-06 08:37 | NUR ---
PT RESTING IN [facility]. PT'S AOX4. RESPS EVEN AND UNLABORED. BP/SPO2 MONITORS IN PLACE.
--- NOTE | 2019-12-06 09:22 | NUR ---
Patient given discharge instructions and they have confirmed that they understand the instructions. Patient ambulatory with steady gait.
== END 2019-12-06 09:23 | disposition home or self-care (01) ==
LOC: ED 08:53
DX: R13.14 Dysphagia, pharyngoesophageal phase (principal); Z88.8 Allergy status to other drugs, medicaments and biological substances
CPT/HCPCS: 99281

== ENCOUNTER 2019-12-10 10:02 | Emergency (ER) | payer MEDICAID ==
[~2019-12-10] VITALS: Ht 185.4 cm; Wt 76.4 kg
[2019-12-10 10:07] VITALS: BP 141/80
--- NOTE | 2019-12-10 10:44 | NUR ---
PT GIVEN D/C PAPERWORK, VERBALIZED UNDERSTANDING. GIVEN FOOD PER REQUEST UPON D/C. PT HAS ALL OWN BELONGINGS UPON D/C.
== END 2019-12-10 10:56 | disposition home or self-care (01) ==
LOC: ED 10:29
DX: F32.9 Major depressive disorder, single episode, unspecified (principal); Z76.0 Encounter for issue of repeat prescription; J44.9 Chronic obstructive pulmonary disease, unspecified; I10 Essential (primary) hypertension; Z90.89 Acquired absence of other organs
CPT/HCPCS: 99281

== ENCOUNTER 2020-01-05 13:31 | Emergency (ER) | payer MEDICAID ==
[~2020-01-05] VITALS: Ht 185.4 cm; Wt 77.4 kg
[~2020-01-05 13:31] MED LIST changes: -CYAN100T2 PO; +CYAN100T22 PO
[2020-01-05 13:33] VITALS: BP 136/76
[2020-01-05] MEDS ORDERED: NAPHAZOLINE/PHENIRAMINE OPHTH EACHEYE ONE (14:00)
--- NOTE | 2020-01-05 14:01 | NUR ---
PT RESTING IN BED, PT AO X4 AND ON MONITOR. PT DENIED WANTS OR NEEDS AT THIS TIME. RN WILL CONTINUE TO MONITOR PT VSS
== END 2020-01-05 15:24 | disposition home or self-care (01) ==
LOC: ED 14:51
DX: H01.00B Unspecified blepharitis left eye, upper and lower eyelids (principal); H01.00A Unspecified blepharitis right eye, upper and lower eyelids; I10 Essential (primary) hypertension; J44.9 Chronic obstructive pulmonary disease, unspecified; G40.909 Epilepsy, unspecified, not intractable, without status epilepticus; Z88.9 Allergy status to unspecified drugs, medicaments and biological substances; Z90.89 Acquired absence of other organs; Z79.899 Other long term (current) drug therapy
CPT/HCPCS: 99283

== ENCOUNTER 2020-01-09 13:35 | Emergency (ER) | payer MEDICAID ==
[~2020-01-09] VITALS: Ht 185.4 cm; Wt 69.6 kg
--- NOTE | 2020-01-09 13:54 | NUR ---
PATIENT WALKED BACK FROM TRIAGE WITH CHIEF C/O "VOICES IN MY HEAD." PATIENT STATES HIS HALLUCINATIONS AND VOICES ARE GETTING WORSE. PATIENT STATES HE TAKES SEROQUEL AND DIDN'T TAKE IT LAST NIGHT. PATIENT IN NO ACUTE SIGNS OF DISTRESS, CONNECTED TO VITAL SIGN MACHINE, VITALS WITHIN NORMAL LIMITS.
[2020-01-09 14:43] VITALS: BP 129/87
--- NOTE | 2020-01-09 14:43 | NUR ---
PT RESTING IN BED, CALL LIGHT IN REACH.
--- NOTE | 2020-01-09 15:58 | NUR ---
ELDA FITZGERALD AT BEDSIDE FOR EVALUATION.
--- NOTE | 2020-01-09 16:47 | NUR ---
Patient given discharge instructions, patient refuses teaching. Bus pass provided. Patient ambulatory with steady gait to disharge desk.
== END 2020-01-09 16:48 | disposition home or self-care (01) ==
LOC: ED 14:04
DX: F20.1 Disorganized schizophrenia (principal); F10.220 Alcohol dependence with intoxication, uncomplicated; I10 Essential (primary) hypertension; J44.9 Chronic obstructive pulmonary disease, unspecified; Z90.89 Acquired absence of other organs; Z91.14 Patient's other noncompliance with medication regimen; Y90.9 Presence of alcohol in blood, level not specified
CPT/HCPCS: 99284

== ENCOUNTER 2020-01-10 12:23 | Inpatient (IN) | payer MEDICAID ==
[~2020-01-10] VITALS: Ht 185.4 cm; Wt 74.4 kg
[2020-01-10] MEDS ORDERED: BISACODYL 10 MG SUPP PR PRN (13:00)
[2020-01-10] MEDS ORDERED: DOCUSATE 100 MG CAPSULE PO PRN (13:00)
[2020-01-10] MEDS ORDERED: ONDANSETRON ODT 4 MG PO PRN (13:00)
[2020-01-10] MEDS ORDERED: POLYETHYLENE GLYCOL 17 GM PACKET PO PRN (13:00)
[2020-01-10] MEDS ORDERED: ACETAMINOPHEN 325 MG TABLET PO PRN (13:00)
[2020-01-10] MEDS ORDERED: PLEASE ENTER HEIGHT AND WEIGHT MC SCH (15:30)
[2020-01-10 19:21] VITALS: BP 135/83
[2020-01-10] MEDS: QUETIAPINE 200 MG TABLET PO SCH (20:10)
[2020-01-10] MEDS: ATORVASTATIN 40 MG TABLET PO SCH (20:10)
[2020-01-11 06:36] LABS: CHOL/HDL RATIO 2.2; FREE T4 (FREE THYROXINE) 0.97 ng/dL (0.76-1.46)
[2020-01-11 07:21] VITALS: BP 101/63
[2020-01-11] MEDS: ASPIRIN 81 MG TABLET EC PO SCH (08:13)
[2020-01-11] MEDS: MULTIVITAMIN 1 TABLET PO SCH (08:14)
[2020-01-11] MEDS: FLUOXETINE HCL 20 MG CAPSULE PO SCH (08:14)
[2020-01-11] MEDS: LISINOPRIL 10 MG TABLET PO SCH (08:14)
[2020-01-11 20:00] VITALS: BP 137/80
[2020-01-11] MEDS: ATORVASTATIN 40 MG TABLET PO SCH (20:22)
[2020-01-11] MEDS: QUETIAPINE 200 MG TABLET PO SCH (20:23)
[2020-01-12 07:23] VITALS: BP 102/61
[2020-01-12] MEDS: PANTOPRAZOLE 40MG TABLET PO SCH ×2 (07:48→16:43)
[2020-01-12] MEDS: FLUOXETINE HCL 20 MG CAPSULE PO SCH (08:23)
[2020-01-12] MEDS: ASPIRIN 81 MG TABLET EC PO SCH (08:23)
[2020-01-12] MEDS: MULTIVITAMIN 1 TABLET PO SCH (08:23)
[2020-01-12] MEDS: LISINOPRIL 10 MG TABLET PO SCH (08:49)
[2020-01-12] MEDS ORDERED: QUETIAPINE 100MG TABLET ONE (11:11)
[2020-01-12] MEDS: QUETIAPINE 100MG TABLET PO SCH (11:46)
[2020-01-12] MEDS: ATORVASTATIN 40 MG TABLET PO SCH (20:15)
[2020-01-12] MEDS: QUETIAPINE 200 MG TABLET PO SCH (20:15)
[2020-01-12 20:30] VITALS: BP 107/70
[2020-01-13 07:24] VITALS: BP 103/66
[2020-01-13] MEDS: PANTOPRAZOLE 40MG TABLET PO SCH ×2 (07:43→16:34)
[2020-01-13] MEDS: MULTIVITAMIN 1 TABLET PO SCH (08:13)
[2020-01-13] MEDS: ASPIRIN 81 MG TABLET EC PO SCH (08:13)
[2020-01-13] MEDS: FLUOXETINE HCL 20 MG CAPSULE PO SCH (08:13)
[2020-01-13] MEDS: LISINOPRIL 10 MG TABLET PO SCH (09:00)
[2020-01-13] MEDS: QUETIAPINE 100MG TABLET PO SCH (09:00)
[2020-01-13 19:15] VITALS: BP 109/74
[2020-01-13] MEDS: QUETIAPINE 200 MG TABLET PO SCH (19:54)
[2020-01-13] MEDS: ATORVASTATIN 40 MG TABLET PO SCH (19:54)
[2020-01-14 07:54] VITALS: BP 115/81
[2020-01-14] MEDS: PANTOPRAZOLE 40MG TABLET PO SCH ×2 (07:54→16:01)
[2020-01-14] MEDS: QUETIAPINE 100MG TABLET PO SCH (08:41)
[2020-01-14] MEDS: ASPIRIN 81 MG TABLET EC PO SCH (08:41)
[2020-01-14] MEDS: MULTIVITAMIN 1 TABLET PO SCH (08:41)
[2020-01-14] MEDS: LISINOPRIL 10 MG TABLET PO SCH (08:41)
[2020-01-14] MEDS: FLUOXETINE HCL 20 MG CAPSULE PO SCH (08:41)
[2020-01-14] MEDS ORDERED: hydrOXyzine 10MG TABLET PO PRN (11:00)
[2020-01-14 18:45] VITALS: BP 103/77
[2020-01-14] MEDS: ATORVASTATIN 40 MG TABLET PO SCH (20:10)
[2020-01-14] MEDS: QUETIAPINE 200 MG TABLET PO SCH (20:11)
[2020-01-15 07:03] VITALS: BP 123/86
[2020-01-15] MEDS: LISINOPRIL 10 MG TABLET PO SCH (08:14)
[2020-01-15] MEDS: PANTOPRAZOLE 40MG TABLET PO SCH ×2 (08:14→15:29)
[2020-01-15] MEDS: QUETIAPINE 100MG TABLET PO SCH (08:14)
[2020-01-15] MEDS: MULTIVITAMIN 1 TABLET PO SCH (08:14)
[2020-01-15] MEDS: ASPIRIN 81 MG TABLET EC PO SCH (08:14)
[2020-01-15] MEDS: FLUOXETINE HCL 20 MG CAPSULE PO SCH (08:14)
[2020-01-15] MEDS ORDERED: IBUPROFEN 200 MG TABLET ONE (15:27)
[2020-01-15] MEDS ORDERED: IBUPROFEN 600 MG TABLET PO PRN (15:30)
[2020-01-15 19:10] VITALS: BP 120/76
[2020-01-15] MEDS: QUETIAPINE 200 MG TABLET PO SCH (20:19)
[2020-01-15] MEDS: ATORVASTATIN 40 MG TABLET PO SCH (20:19)
[2020-01-16 07:28] VITALS: BP 113/73
[2020-01-16] MEDS: PANTOPRAZOLE 40MG TABLET PO SCH ×2 (08:01→16:36)
[2020-01-16] MEDS: LISINOPRIL 10 MG TABLET PO SCH (08:30)
[2020-01-16] MEDS: MULTIVITAMIN 1 TABLET PO SCH (08:30)
[2020-01-16] MEDS: ASPIRIN 81 MG TABLET EC PO SCH (08:30)
[2020-01-16] MEDS: FLUOXETINE HCL 20 MG CAPSULE PO SCH (08:30)
[2020-01-16] MEDS: QUETIAPINE 100MG TABLET PO SCH (08:31)
[2020-01-16] MEDS ORDERED: ASPI81TA45 PO (11:18)
[2020-01-16] MEDS ORDERED: HYDR-826 PO (11:18)
[2020-01-16] MEDS ORDERED: FLUO20CA23 PO (11:18)
[2020-01-16] MEDS ORDERED: MULT-449 PO (11:18)
[2020-01-16] MEDS ORDERED: ATOR40TA78 PO (11:18)
[2020-01-16] MEDS ORDERED: QUET200T PO (11:18)
[2020-01-16] MEDS ORDERED: LISI-167 PO (11:18)
[2020-01-16] MEDS ORDERED: QUET100T PO (11:18)
[2020-01-16] MEDS ORDERED: PANT40TA6 PO (11:18)
[2020-01-16 20:19] VITALS: BP 121/84
[2020-01-16] MEDS: QUETIAPINE 200 MG TABLET PO SCH (20:40)
[2020-01-16] MEDS: ATORVASTATIN 40 MG TABLET PO SCH (20:40)
[2020-01-17 07:17] VITALS: BP 117/74
[2020-01-17] MEDS: PANTOPRAZOLE 40MG TABLET PO SCH (07:55)
[2020-01-17] MEDS: FLUOXETINE HCL 20 MG CAPSULE PO SCH (08:51)
[2020-01-17] MEDS: LISINOPRIL 10 MG TABLET PO SCH (08:52)
[2020-01-17] MEDS: MULTIVITAMIN 1 TABLET PO SCH (08:52)
[2020-01-17] MEDS: QUETIAPINE 100MG TABLET PO SCH (08:52)
[2020-01-17] MEDS: ASPIRIN 81 MG TABLET EC PO SCH (08:52)
== END 2020-01-17 10:15 | disposition home or self-care (01) | DRG 885 ==
LOC: 3E 15:16
PROVIDERS: ADMIT Psychiatry & Neurology Psychosomatic Medicine; ATTEND Psychiatry & Neurology Psychosomatic Medicine
DX: F25.0 Schizoaffective disorder, bipolar type (principal); K21.9 Gastro-esophageal reflux disease without esophagitis; Z59.0 Homelessness; B19.20 Unspecified viral hepatitis C without hepatic coma
CPT/HCPCS: 36415; 80061; 84439; 84443; Q0177

== ENCOUNTER 2020-02-04 10:39 | Emergency (ER) | payer MEDICAID ==
[~2020-02-04] VITALS: Ht 185.4 cm; Wt 74.7 kg
[~2020-02-04 10:39] MED LIST changes: +HYDR-826 PO; +PANT40TA6 PO
[2020-02-04 10:58] VITALS: BP 123/92
[2020-02-04] MEDS ORDERED: IBUPROFEN 200 MG TABLET ONE (13:46)
[2020-02-04] MEDS ORDERED: CYCLOBENZAPRINE 10 MG TABLET ONE (13:46)
[2020-02-04] MEDS ORDERED: IBUPROFEN 200 MG TABLET PO ONE (14:00)
[2020-02-04] MEDS ORDERED: CYCLOBENZAPRINE 10 MG TABLET PO ONE (14:00)
[2020-02-04 14:09] LABS: MICROSCOPIC NOT IND
== END 2020-02-04 14:38 | disposition home or self-care (01) ==
LOC: ED 13:27
DX: S39.012A Strain of muscle, fascia and tendon of lower back, initial encounter (principal); Z90.49 Acquired absence of other specified parts of digestive tract; Z90.89 Acquired absence of other organs; X58.XXXA Exposure to other specified factors, initial encounter; Y93.89 Activity, other specified; Y92.89 Other specified places as the place of occurrence of the external cause; Y99.8 Other external cause status
CPT/HCPCS: 72110; 81003; 99284

== ENCOUNTER 2020-02-14 16:11 | Emergency (ER) | payer MEDICAID ==
[~2020-02-14] VITALS: Ht 185.4 cm; Wt 74.6 kg
[~2020-02-14 16:11] MED LIST changes: -RISP3TAB3 PO; +RISP3TAB58 PO
[2020-02-14] MEDS ORDERED: LORazepam 1MG TABLET PO ONE (17:30)
[2020-02-14] MEDS ORDERED: LORazepam 1MG TABLET ONE (17:31)
--- NOTE | 2020-02-14 18:02 | NUR ---
xr pending, lab at [facility] per jun. requesting raysa. pt cooperative, pleasant. sitter in place. as
[2020-02-14 18:03] LABS: BASOPHILS % (AUTO) 1 % (0-1); EOSINOPHILS % (AUTO) 2 % (1-7); LYMPHOCYTES % (AUTO) 18 % (22-44); MEAN CORPUSCULAR HEMOGLOBIN 31.1 pg (27.5-34.5); MEAN PLATELET VOLUME 8.3 fL (7.4-10.4); MONOCYTES % (AUTO) 13 % (2-9); NEUTROPHILS % (AUTO) 66 % (42-75); PLATELET COUNT 232 x10^3/uL (130-400); RED BLOOD COUNT 4.28 x10^6/uL (4.38-5.82); RED CELL DISTRIBUTION WIDTH 15.4 % (9.4-14.8)
[2020-02-14] MEDS ORDERED: ONDANSETRON ODT 4 MG ONE (18:05)
[2020-02-14 18:07] LABS: MD NO
[2020-02-14 18:18] LABS: ALBUMIN 3.4 g/dL (3.4-5.0); ANION GAP 6 mmol/L (5-15); CALCIUM 8.8 mg/dL (8.5-10.1); CHLORIDE 99 mmol/L (98-107)
[2020-02-14 18:27] LABS: ALANINE AMINOTRANSFERASE 32 U/L (12-78); ALKALINE PHOSPHATASE 113 U/L (45-117); BILIRUBIN,TOTAL 0.6 mg/dL (0.2-1.0); CREATININE 0.87 mg/dL (0.7-1.3); TOTAL PROTEIN 7.9 g/dL (6.4-8.2)
[2020-02-14 18:30] LABS: SALICYLATE LEVEL < 1.7 mg/dL (2.8-20.0)
[2020-02-14] MEDS ORDERED: ONDANSETRON ODT 4 MG PO ONE (18:30)
--- NOTE | 2020-02-14 18:51 | NUR ---
given dinner. resting in bed nad. sitter in place. as
--- NOTE | 2020-02-14 19:04 | NUR ---
report to caitlyn arenas. as
--- NOTE | 2020-02-14 19:10 | NUR ---
REPORT FROM JUNE ROBISON
--- NOTE | 2020-02-14 19:30 | NUR ---
APPLIANCE INSTALLER AT BEDSIDE
--- NOTE | 2020-02-14 20:08 | NUR ---
TP: U WANTS RAPID COVID AND THEN THEY ARE ATTEMPTING PRIOR AUTH, WILL ALERT US IF ACCEPTED.
--- NOTE | 2020-02-14 20:30 | NUR ---
PT RESTING WITH LIGHTS OFF. NO COMPLIANTS. SITTER AT DOORWAY, GARAGE DOORS DOWN X2, SI PRECAUTIONS IN PLACE
--- NOTE | 2020-02-14 21:11 | NUR ---
TP; ERNESTO FROM [facility] ACCEPTING PT, PRIMARY RN WALKING COVID SAMPLE TO LAB CURRENTLY- REPORTED TO WESLEY CONNOR THAT PT IS ACCEPTED AFTER RESULTS COME BACK
[2020-02-14 21:30] LABS: AMPHETAMINE SCREEN, URINE Negative (Negative); BARBITURATE SCREEN, URINE Negative (Negative); BENZODIAZEPINE SCREEN, URINE Negative (Negative); CANNABINOID SCREEN, URINE Negative (Negative); COCAINE SCREEN, URINE Negative (Negative); METHADONE SCREEN, URINE Negative (Negative); OPIATE SCREEN, URINE Negative (Negative)
--- NOTE | 2020-02-14 21:51 | NUR ---
PRECEPTOR: PROVIDED WARM BLANKETS AJUSTED BED DOOR CLOSED, LEGISLATIVE CORRESPONDENT NOTIFIED OF POSITIVE COVID, [facility]HU NOTIFIED OF POSITIVE COVID
--- NOTE | 2020-02-14 23:24 | NUR ---
PT SLEEPING. NO COMPLAINTS AT THIS TIME, SITTER AT DOORWAY
--- NOTE | 2020-02-15 00:30 | NUR ---
PT SLEEPING. NO NEEDS AT THIS TIME. SITTER AT DOORWAY
--- NOTE | 2020-02-15 02:08 | NUR ---
PT SLEEPING. NO NEEDS, SITTER AT DOORWAY
--- NOTE | 2020-02-15 03:00 | NUR ---
PT SLEEPING NO NEEDS AT THIS TIME
--- NOTE | 2020-02-15 03:55 | NUR ---
PT REQUESTING SEROQUEL 400 MG AND IBUPROFEN FOR A MIGRAINE. MD PLACED ORDERS.
[2020-02-15] MEDS ORDERED: IBUPROFEN 800 MG TABLET ONE (03:59)
[2020-02-15] MEDS ORDERED: QUETIAPINE 100MG TABLET ONE ×3 (03:59→19:38)
[2020-02-15] MEDS ORDERED: QUETIAPINE 100MG TABLET PO SCH (04:00)
[2020-02-15] MEDS ORDERED: IBUPROFEN 800 MG TABLET PO ONE (04:00)
[2020-02-15] MEDS ORDERED: QUETIAPINE 100MG TABLET PO ONE ×2 (04:30→11:30)
--- NOTE | 2020-02-15 05:00 | NUR ---
PT SLEEPING IN HOSPITAL BED. NO NEEDS AT THIS TIME. SITTER AT DOORWAY
--- NOTE | 2020-02-15 06:00 | NUR ---
pt sleeping, no needs at this time
--- NOTE | 2020-02-15 07:08 | NUR ---
REPORT GIVEN TO LUKE ROBISON
--- NOTE | 2020-02-15 07:40 | NUR ---
PT HELPED TO THE RESTROOM. PT DENIES SI. DIET TRAY ORDERED
--- NOTE | 2020-02-15 07:41 | NUR ---
COMMODE PUT IN ROOM
--- NOTE | 2020-02-15 07:41 | NUR ---
ISO CARE OUTSIDE ROOM/ PT PUT IN DROPPLET PRECAUTIONS ISO
--- NOTE | 2020-02-15 07:51 | NUR ---
PT CALM SLEEDPIN GIN BED. ROOM IS SAFE AND SECURE. KASSIE SITTER OUTSIDE ROOM .
[2020-02-15] MEDS ORDERED: FLUOXETINE HCL 20 MG CAPSULE ONE (14:25)
[2020-02-15] MEDS: FLUOXETINE HCL 20 MG CAPSULE PO SCH (14:32)
--- NOTE | 2020-02-15 19:00 | NUR ---
LATE ENTRY D/T PT CARE: BEDSIDE REPORT FROM LUKE ROBISON. PT RESTING ON GURNEY, ROOM LOCKED DOWN PER SI PRECAUTIONS, SITTER IN LINE OF SIGHT.
--- NOTE | 2020-02-15 19:31 | NUR ---
PT RESTING ON GURNEY, NAD, EVEN AND UNLABORED RESPIRATIONS, APPEARS COMFORTABLE, EYES CLOSED, SI PRECUATION IN PLACE, SITTER IN LINE OF SIGHT. WCTM. L2K
--- NOTE | 2020-02-15 20:18 | NUR ---
PT RESTING ON GURNEY, PROVIDED MEDICATIONS PER JUN, NAD, GIVEN APPLE JUICE AND SPRITE FOR COMFORT, SI PRECAUTIONS IN PLACE, SITTER IN LINE OF SIGHT. WCTM. L2K
[2020-02-15] MEDS ORDERED: QUETIAPINE 200 MG TABLET PO SCH (21:00)
--- NOTE | 2020-02-15 21:28 | NUR ---
pt resting on hospital bed, eyes closed, appears comfortable, resting supine, nad, sitter in line of sight, room si precuations in place, wctm.
--- NOTE | 2020-02-15 22:22 | NUR ---
pt resting on hospital bed, eyes closed, appears comfortable, resting supine, nad, sitter in line of sight, room si precuations in place, wctm.
--- NOTE | 2020-02-16 00:24 | NUR ---
PT RESTING ON HOSPITAL BED, NAD, APPEARS COMFORTABLE, EVEN AND UNLABORED RESPIRATIONS NOTED, SITTER IN LINE OF SIGHT, SI PRECAUTIONS IN PLACE, WCTM. L2K
--- NOTE | 2020-02-16 02:13 | NUR ---
PT RESTING ON HOSPITAL BED, NAD, APPEARS COMFORTABLE, EVEN AND UNLABORED RESPIRATIONS NOTED, SITTER IN LINE OF SIGHT, SI PRECAUTIONS IN PLACE, WCTM. L2K
--- NOTE | 2020-02-16 03:30 | NUR ---
pt resting on hospital bed, appears comfortable, pt eyes are closed laying on right side, even and unlabored respirations. NAD, sitter in line of sight, SI precautions in place, WCTM. L2K
--- NOTE | 2020-02-16 05:04 | NUR ---
pt resting on gurney, appears comfortable, pt eyes are closed, even and unlabored respirations. NAD, sitter in line of sight, SI precautions in place, WCTM. L2K
--- NOTE | 2020-02-16 06:35 | NUR ---
PT RESTING ON HOSPITAL BED, WATCHING TV, NO CHANGE IN CONDITION, SITTER IN LINE OF SIGHT, SI PRECAUTIONS IN PLACE, BREAKFAST TRAY ORDERED AND BEDSIDE COMMODE EMPTIED, WCTM. L2K
--- NOTE | 2020-02-16 06:47 | NUR ---
BEDSIDE REPORT TO JOYCE ROBISON, PT CARE TRANSFERRED AT THIS TIME.
--- NOTE | 2020-02-16 06:51 | NUR ---
REPORT RECEIVED FROM YVETTE ROBISON
--- NOTE | 2020-02-16 07:00 | NUR ---
PT SUPINE ON HOSPITAL BED WITH EYES CLOSED, RESTING CALMLY AND COMFORTABLY. NAD. NO PT NEEDS AT THIS TIME. SITTER IN VIEW AND SAFETY WILBURN DOWN AND ISOLATION PRECAUTIONS PLACE. WILL CONTINUE TO MONITOR.
--- NOTE | 2020-02-16 08:02 | NUR ---
PT UPRIGHT ON HOSPITAL BED WATCHING TV, RESTING CALMLY AND COMFORTABLY. NAD. NO PT NEEDS AT THIS TIME. SITTER IN VIEW AND SAFETY WILBURN DOWN AND ISOLATION PRECAUTIONS PLACE. WILL CONTINUE TO MONITOR.
[2020-02-16] MEDS ORDERED: FLUOXETINE HCL 20 MG CAPSULE ONE (08:49)
[2020-02-16] MEDS: FLUOXETINE HCL 20 MG CAPSULE PO SCH (09:00)
[2020-02-16 09:01] VITALS: BP 130/90
--- NOTE | 2020-02-16 09:02 | NUR ---
PT SITTING UPRIGHT ON HOSPITAL BED WATCHING TV. NAD, VSS. PT GIVEN BREAKFAST MEAL TRAY AND DENIES ANY ADDITIONAL NEEDS AT THIS TIME. SITTER IN VIEW AND SAFETY AND ISOLATION PRECAUTIONS IN PLACE. WILL CONTINUE TO MONITOR.
--- NOTE | 2020-02-16 10:09 | NUR ---
DISCUSSED PLAN OF CARE WITH OPERATIONS AGENT KYMBERLY. AWAITING POSSIBLE PLACEMENT AT A COVID PRISON.
--- NOTE | 2020-02-16 11:33 | NUR ---
PT SPEAKING WITH CYRUS ÁLVAREZ [facility] PROVIDED CELL PHONE.
--- NOTE | 2020-02-16 12:10 | NUR ---
PT SITTING UPRIGHT ON HOSPITAL BED WATCHING TV AND EATING LUNCH TRAY. PT DENIES ANY NEEDS AT THIS TIME. SAFETY PRECAUTIONS AND ISOLATION PRECAUTIONS IN PLACE. WILL CONTINUE TO MONITOR.
--- NOTE | 2020-02-16 13:00 | NUR ---
PT SITTING UPRIGHT ON HOSPITAL BED WATCHING TV, PROVIDED SPRITE PER REQUEST. PT DENIES ANY NEEDS AT THIS TIME. ISOLATION PRECAUTIONS IN PLACE. WILL CONTINUE TO MONITOR. AWAITING D/C.
--- NOTE | 2020-02-16 14:25 | NUR ---
D/C PT HOME. PT REFUSED TO GIVE ADDRESS FOR [employer]. REFUSED D/C VITAL SIGNS. PT AGITATED AND YELLING AT STAFF DURING D/C PROCESS. PT ESCORTED OUT OF ED WITH SECURITY WITH ALL PERSONAL BELONGINGS AND D/C PAPERWORK.
== END 2020-02-16 14:28 | disposition home or self-care (01) ==
LOC: ED 20:41
DX: U07.1 COVID-19 (principal); R45.851 Suicidal ideations; F25.9 Schizoaffective disorder, unspecified; I10 Essential (primary) hypertension
CPT/HCPCS: 36415; 72110; 80053; 80307; 85025; 87635; 99284

== ENCOUNTER 2020-03-18 09:44 | Emergency (ER) | payer MEDICAID ==
[~2020-03-18] VITALS: Ht 185.4 cm; Wt 75.0 kg
[2020-03-18 09:52] VITALS: BP 133/98
--- NOTE | 2020-03-18 10:09 | NUR ---
PT BROUGHT BACK FROM TRIAGE WITH CHIEF COMPLAINT RX REFIL. NO COMPLAINTS OF DISCOMFORT OR REPORTED SYMPTOMS.
--- NOTE | 2020-03-18 10:41 | NUR ---
DISCHARGE INSTRUCTIONS REVIEWED
== END 2020-03-18 10:46 | disposition home or self-care (01) ==
LOC: ED 10:16
DX: I10 Essential (primary) hypertension (principal); Z76.0 Encounter for issue of repeat prescription; J44.9 Chronic obstructive pulmonary disease, unspecified; Z90.89 Acquired absence of other organs
CPT/HCPCS: 99281

== ENCOUNTER 2020-03-22 14:46 | Emergency (ER) | payer MEDICAID ==
[~2020-03-22] VITALS: Ht 185.4 cm; Wt 82.0 kg
[~2020-03-22 14:46] MED LIST changes: +LORA-59 PO; -LORA10TA62 PO; -MONT10TA11 PO; +MONT10TA96 PO
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
[2020-03-22] MEDS ORDERED: LIDOCAINE-MPF 1%, 5ML ONE (15:06)
[2020-03-22] MEDS ORDERED: DIPH,PERTUSS(ACELL),TET VAC/PF 0.5 ML IM-VACC ONE ×2 (15:06→15:30)
[2020-03-22] MEDS ORDERED: L.E.T SOLUTION TP ONE ×2 (15:07→15:30)
--- NOTE | 2020-03-22 15:17 | NUR ---
WHEN GOING INTO PATIENT'S ROOM TO ADMIN MEDS, PATIENT WAS AMBULATING DOWN YU SAYING "I'M GETTING OUT OF HERE". THIS RN REDIRECTED PATIENT BACK TO ROOM, EXPLAINED NEED FOR TETANUS, CT SCANS, AND TO SUTURE LACERATION CLOSED. PATIENT AMBULATED BACK TO ROOM. TDAP ADMINSTERED, LET APPLIED TO LAC. PATIENT TO CT AT THIS TIME
[2020-03-22] MEDS ORDERED: LIDOCAINE-MPF 1%, 5ML INFIL ONE (15:30)
[2020-03-22] MEDS ORDERED: NEOSPORIN OINT. PKT 1 PACKET ONE (16:18)
[2020-03-22] MEDS ORDERED: ACETAMINOPHEN 325 MG TABLET ONE (16:18)
--- NOTE | 2020-03-22 16:21 | NUR ---
PATIENT MEDICATED PER EMAR, TOLERATED WELL.
[2020-03-22] MEDS ORDERED: ACETAMINOPHEN 325 MG TABLET PO ONE (16:30)
--- NOTE | 2020-03-22 16:36 | NUR ---
BRIEF PT REPORT RECEIVED. PT CARE TO BE ASSUMED
[2020-03-22] MEDS ORDERED: QUET200T4 PO (16:57)
[2020-03-22] MEDS ORDERED: LISI10TA2 PO (16:57)
[2020-03-22] MEDS ORDERED: QUET400T PO (16:57)
--- NOTE | 2020-03-22 17:05 | NUR ---
PT DOZING ON GURNEY; RESP EVEN & UNLABORED; EASILY AWAKENED. LARGE BANDAID ON FORHEAD. PT NOTIFIED OF PENDING DC; REQUESTED TAXI VOUCHER.
[2020-03-22 17:06] VITALS: BP 101/60
--- NOTE | 2020-03-22 17:06 | NUR ---
PT ENDORSED TO DUSTIN VELÁSQUEZ RN.
--- NOTE | 2020-03-22 17:26 | NUR ---
dc orders received, pt given dc instructions and taxi voucher at request. pt asking for ibuprofen at dc to treat headache. this was discussed with CYRUS Sorensen who declined to write rx for ibuprofen. ERP offered one time dose, pt not in room when RN returned to offer one time dose ibuprofen for headache. pt was ambulatory with steady gait, unassisted upon discharge.
== END 2020-03-22 17:27 | disposition home or self-care (01) ==
LOC: ED 15:41
DX: S01.81XA Laceration without foreign body of other part of head, initial encounter (principal); F10.220 Alcohol dependence with intoxication, uncomplicated; R55 Syncope and collapse; R41.82 Altered mental status, unspecified; I10 Essential (primary) hypertension; J44.9 Chronic obstructive pulmonary disease, unspecified; W01.0XXA Fall on same level from slipping, tripping and stumbling without subsequent striking against object, initial encounter; Y93.89 Activity, other specified; Y92.488 Other paved roadways as the place of occurrence of the external cause; Y99.8 Other external cause status; Y90.0 Blood alcohol level of less than 20 mg/100 ml
CPT/HCPCS: 12051; 70450; 72125; 90471; 90715; 93005; 99285

== ENCOUNTER 2020-04-14 11:29 | Emergency (ER) | payer MEDICAID ==
[~2020-04-14] VITALS: Ht 185.4 cm; Wt 70.0 kg
[~2020-04-14 11:29] MED LIST changes: +QUET200T4 PO; +QUET400T PO
[2020-04-14 11:39] VITALS: BP 152/99
--- NOTE | 2020-04-14 11:44 | NUR ---
PT AMBULATED TO ROOM WITH STEADY GAIT.
--- NOTE | 2020-04-14 11:59 | NUR ---
PT STATES HE WANTS TO TALK TO PSYCH. DENIES ANY NEEDS AT THIS TIME. PT CHANGED INTO GOWN AND RESTING ON GURNEY. CALL LIGHT IN REACH.
--- NOTE | 2020-04-14 12:45 | NUR ---
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 Pt ambulatory with steady gait, denies SI/HI, fully dressed, A&O x4. Pt requesting bus pass. Pt provided with bus pass. This RN advised pt that the psychiatric nurse practitioner is on their way to evaluate him. Pt reports that he wants to leave now and not wait. Pt ambulatory out of unit with steady gait, NADN.
== END 2020-04-14 12:51 | disposition left against medical advice (07) ==
LOC: ED 12:21
DX: F20.89 Other schizophrenia (principal); Z48.02 Encounter for removal of sutures; F10.120 Alcohol abuse with intoxication, uncomplicated; R45.851 Suicidal ideations; I10 Essential (primary) hypertension; J44.9 Chronic obstructive pulmonary disease, unspecified; Y90.9 Presence of alcohol in blood, level not specified
CPT/HCPCS: 99284

== ENCOUNTER 2020-05-16 01:13 | Emergency (ER) | payer MEDICAID ==
[~2020-05-16] VITALS: Ht 175.3 cm; Wt 79.0 kg
[~2020-05-16 01:13] MED LIST changes: -FOLI-17 PO; +FOLI1TAB32 PO; +LISI10TA19 PO; -LISI10TA2 PO; +MONT10TA17 PO; -MONT10TA96 PO
[2020-05-16 01:39] VITALS: BP 142/88
[2020-05-16] MEDS ORDERED: QUETIAPINE 100MG TABLET ONE (02:37)
[2020-05-16] MEDS ORDERED: QUETIAPINE 100MG TABLET PO ONE (03:00)
--- NOTE | 2020-05-16 03:12 | NUR ---
pt left without paperwork
== END 2020-05-16 03:13 | disposition home or self-care (01) ==
LOC: ED 02:55
DX: F10.129 Alcohol abuse with intoxication, unspecified (principal); Z76.0 Encounter for issue of repeat prescription; Z72.9 Problem related to lifestyle, unspecified; I10 Essential (primary) hypertension; Y90.0 Blood alcohol level of less than 20 mg/100 ml
CPT/HCPCS: 99281; 99283

== ENCOUNTER 2020-06-01 07:06 | Emergency (ER) | payer MEDICAID ==
[~2020-06-01] VITALS: Ht 185.4 cm; Wt 77.5 kg
--- NOTE | 2020-06-01 07:18 | NUR ---
PT BIB [facility]. PT HAS BEEN DRINKING ALCOHOL SINCE YESTERDAY MORNING DUE TO [employer]ERS[employer] . 1/2 PINT OF VODKA AND 5 24OZ BEERS. PT HAS NOT EATEN SINCE YESTERDAY. PT C/O N/V. LAST DRINK AT 0200 TODAY. PT REC'VD 4 MG ZOFRAN PO BY EMS. PT STATES THE NAUSEA IS A LITTLE BETTER, BUT STILL PRESENT.
[2020-06-01] MEDS ORDERED: THIAMINE 100MG TABLET ONE (07:54)
[2020-06-01] MEDS ORDERED: PROMETHAZINE 25 MG/ML, 1ML ONE (07:54)
[2020-06-01] MEDS ORDERED: PROMETHAZINE 25 MG/ML, 1ML IM ONE (08:00)
[2020-06-01] MEDS ORDERED: THIAMINE 100MG TABLET PO ONE (08:00)
--- NOTE | 2020-06-01 08:15 | NUR ---
PO CHALLENGE STARTED. PT TOLERATING WATER WELL.
[2020-06-01] MEDS ORDERED: ACETAMINOPHEN 500 MG TABLET ONE (08:36)
[2020-06-01 08:47] VITALS: BP 138/89
[2020-06-01] MEDS ORDERED: ACETAMINOPHEN 500 MG TABLET PO ONE (09:00)
--- NOTE | 2020-06-01 09:22 | NUR ---
PT REC'VD DISCHARGE INSTRUCTIONS AND EDUCTION. PT HAD NO FURTHER QUESTIONS.
--- NOTE | 2020-06-01 09:33 | NUR ---
PT AMBULATED TO GA AREA, STEADY GAIT.
== END 2020-06-01 09:35 | disposition home or self-care (01) ==
LOC: ED 07:38
DX: K29.20 Alcoholic gastritis without bleeding (principal); F10.220 Alcohol dependence with intoxication, uncomplicated; J44.9 Chronic obstructive pulmonary disease, unspecified; Z90.89 Acquired absence of other organs; Y90.9 Presence of alcohol in blood, level not specified
CPT/HCPCS: 96372; 99283; J2550

== ENCOUNTER 2020-06-24 04:35 | Emergency (ER) | payer MEDICAID ==
--- NOTE | 2020-06-24 04:40 | NUR ---
PT REFUSING TO ANSWER TRIAGE QUESTIONS, UNCOOPERATIVE
== END 2020-06-24 04:51 | disposition left against medical advice (07) ==
LOC: ED 04:45
DX: Z53.21 Procedure and treatment not carried out due to patient leaving prior to being seen by health care provider (principal)

== ENCOUNTER 2020-06-30 06:51 | Inpatient (IN) | payer MEDICAID ==
[~2020-06-30] VITALS: Ht 185.4 cm; Wt 76.1 kg
[2020-06-30] MEDS ORDERED: ACETAMINOPHEN 325 MG TABLET PO PRN (07:00)
[2020-06-30] MEDS ORDERED: DOCUSATE 100 MG CAPSULE PO PRN (07:00)
[2020-06-30] MEDS ORDERED: POLYETHYLENE GLYCOL 17 GM PACKET PO PRN (07:00)
[2020-06-30] MEDS ORDERED: BISACODYL 10 MG SUPP PR PRN (07:00)
[2020-06-30] MEDS ORDERED: ONDANSETRON ODT 4 MG PO PRN (07:00)
[2020-06-30] MEDS ORDERED: PLEASE ENTER HEIGHT AND WEIGHT MC SCH (09:00)
[2020-06-30 09:38] VITALS: BP 122/76
[2020-06-30 09:40] VITALS: BP 122/76
[2020-06-30] MEDS ORDERED: FLUO40CA9 PO (09:58)
[2020-06-30] MEDS ORDERED: LISI-167 PO (09:58)
[2020-06-30] MEDS ORDERED: QUET400T4 PO (09:58)
[2020-06-30] MEDS ORDERED: LORazepam 1MG TABLET PO PRN (11:00)
[2020-06-30] MEDS: LORazepam 1MG TABLET PO SCH ×2 (15:40→20:03)
[2020-06-30] MEDS ORDERED: QUETIAPINE 200 MG TABLET PO SCH ×2 (17:00→21:00)
[2020-06-30 19:56] VITALS: BP 112/75
[2020-06-30] MEDS ORDERED: QUETIAPINE 100MG TABLET PO SCH (20:30)
[2020-06-30] MEDS ORDERED: QUETIAPINE 100MG TABLET PO ONE (20:30)
[2020-07-01 05:29] LABS: CHOL/HDL RATIO 2.1
[2020-07-01 07:55] VITALS: BP 122/72
[2020-07-01] MEDS: FOLIC ACID 1 MG TABLET PO SCH (08:11)
[2020-07-01] MEDS: THIAMINE 100MG TABLET PO SCH (08:11)
[2020-07-01] MEDS: QUETIAPINE 200 MG TABLET PO SCH ×2 (08:11→20:22)
[2020-07-01] MEDS: LISINOPRIL 10 MG TABLET PO SCH (08:11)
[2020-07-01] MEDS: LORazepam 1MG TABLET PO SCH ×3 (08:11→20:22)
[2020-07-01 18:45] LABS: MICROSCOPIC INDICATED
[2020-07-01 19:56] VITALS: BP 100/62
[2020-07-02 07:56] VITALS: BP 109/73
[2020-07-02] MEDS: FOLIC ACID 1 MG TABLET PO SCH (08:34)
[2020-07-02] MEDS: THIAMINE 100MG TABLET PO SCH (08:34)
[2020-07-02] MEDS: LORazepam 1MG TABLET PO SCH ×3 (08:34→20:28)
[2020-07-02] MEDS: LISINOPRIL 10 MG TABLET PO SCH (08:35)
[2020-07-02] MEDS: QUETIAPINE 200 MG TABLET PO SCH ×2 (08:35→20:28)
[2020-07-02] MEDS: SERTRALINE 50MG TABLET PO SCH (15:11)
[2020-07-02] MEDS: ACAMPROSATE 333 MG TABLET.DR PO SCH ×2 (15:11→20:28)
[2020-07-02 18:30] VITALS: BP 108/76
[2020-07-03 07:59] VITALS: BP 126/85
[2020-07-03] MEDS: SERTRALINE 50MG TABLET PO SCH (08:52)
[2020-07-03] MEDS: FOLIC ACID 1 MG TABLET PO SCH (08:52)
[2020-07-03] MEDS: ACAMPROSATE 333 MG TABLET.DR PO SCH ×3 (08:52→19:58)
[2020-07-03] MEDS: THIAMINE 100MG TABLET PO SCH (08:52)
[2020-07-03] MEDS: LORazepam 1MG TABLET PO SCH (08:53)
[2020-07-03] MEDS: LISINOPRIL 10 MG TABLET PO SCH (08:53)
[2020-07-03] MEDS: QUETIAPINE 200 MG TABLET PO SCH ×2 (08:55→19:58)
[2020-07-03] MEDS ORDERED: LORazepam 1MG TABLET ONE (16:43)
[2020-07-03] MEDS: LORazepam 1MG TABLET PO PRN ×2 (16:47→20:54)
[2020-07-03 19:54] VITALS: BP 114/72
[2020-07-04 07:30] VITALS: BP 108/75
[2020-07-04] MEDS: LISINOPRIL 10 MG TABLET PO SCH (08:36)
[2020-07-04] MEDS: SERTRALINE 50MG TABLET PO SCH (08:36)
[2020-07-04] MEDS: ACAMPROSATE 333 MG TABLET.DR PO SCH ×3 (08:36→20:00)
[2020-07-04] MEDS: THIAMINE 100MG TABLET PO SCH (08:36)
[2020-07-04] MEDS: QUETIAPINE 200 MG TABLET PO SCH ×2 (08:36→19:58)
[2020-07-04] MEDS: FOLIC ACID 1 MG TABLET PO SCH (08:36)
[2020-07-04 19:23] VITALS: BP 106/74
[2020-07-05 07:08] VITALS: BP 102/62
[2020-07-05] MEDS: ACAMPROSATE 333 MG TABLET.DR PO SCH ×3 (08:09→20:26)
[2020-07-05] MEDS: THIAMINE 100MG TABLET PO SCH (08:10)
[2020-07-05] MEDS: LISINOPRIL 10 MG TABLET PO SCH (08:10)
[2020-07-05] MEDS: SERTRALINE 50MG TABLET PO SCH (08:10)
[2020-07-05] MEDS: FOLIC ACID 1 MG TABLET PO SCH (08:10)
[2020-07-05] MEDS: QUETIAPINE 200 MG TABLET PO SCH ×2 (08:10→20:25)
[2020-07-05 19:40] VITALS: BP 113/74
[2020-07-06] MEDS: ACAMPROSATE 333 MG TABLET.DR PO SCH (08:07)
[2020-07-06 08:08] VITALS: BP 121/80
[2020-07-06] MEDS: THIAMINE 100MG TABLET PO SCH (08:08)
[2020-07-06] MEDS: LISINOPRIL 10 MG TABLET PO SCH (08:08)
[2020-07-06] MEDS: FOLIC ACID 1 MG TABLET PO SCH (08:08)
[2020-07-06] MEDS: SERTRALINE 50MG TABLET PO SCH (08:08)
[2020-07-06] MEDS: QUETIAPINE 200 MG TABLET PO SCH (08:08)
[2020-07-06] MEDS ORDERED: LISI-167 PO (13:12)
[2020-07-06] MEDS ORDERED: ACAM333T7 PO (13:12)
[2020-07-06] MEDS ORDERED: SERT50TA28 PO (13:12)
[2020-07-06] MEDS ORDERED: QUET200T PO ×2 (13:12)
== END 2020-07-06 13:30 | disposition home or self-care (01) | DRG 885 ==
LOC: 3E 06:58
PROVIDERS: ADMIT Psychiatry & Neurology Psychosomatic Medicine; ATTEND Psychiatry & Neurology Psychosomatic Medicine
DX: F31.5 Bipolar disorder, current episode depressed, severe, with psychotic features (principal); F10.239 Alcohol dependence with withdrawal, unspecified; R45.851 Suicidal ideations; F43.10 Post-traumatic stress disorder, unspecified; B19.20 Unspecified viral hepatitis C without hepatic coma; I10 Essential (primary) hypertension; Z79.899 Other long term (current) drug therapy; Z82.5 Family history of asthma and other chronic lower respiratory diseases; Z80.1 Family history of malignant neoplasm of trachea, bronchus and lung
CPT/HCPCS: 36415; 71045; 80061; 81001; 93005; Q0162

== ENCOUNTER 2020-07-09 04:21 | Emergency (ER) | payer MEDICAID ==
[~2020-07-09] VITALS: Ht 185.4 cm; Wt 76.0 kg
[~2020-07-09 04:21] MED LIST changes: +SERT50TA28 PO
[2020-07-09] MEDS ORDERED: ONDANSETRON ODT 4 MG PO ONE (04:30)
[2020-07-09] MEDS ORDERED: ONDANSETRON ODT 4 MG ONE (04:36)
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
[2020-07-09 05:09] LABS: BASOPHILS % (AUTO) 1 % (0-1); EOSINOPHILS % (AUTO) 1 % (1-7); LYMPHOCYTES % (AUTO) 21 % (22-44); MEAN CORPUSCULAR HEMOGLOBIN 31.6 pg (27.5-34.5); MEAN CORPUSCULAR HGB CONC 34.4 g/dL (33.2-36.2); MONOCYTES % (AUTO) 3 % (2-9); NEUTROPHILS % (AUTO) 74 % (42-75); PLATELET COUNT 263 x10^3/uL (130-400); RED BLOOD COUNT 4.81 x10^6/uL (4.38-5.82); RED CELL DISTRIBUTION WIDTH 14.6 % (9.4-14.8)
[2020-07-09 05:11] LABS: MD NO
[2020-07-09 05:20] LABS: ALANINE AMINOTRANSFERASE 25 U/L (12-78); ALBUMIN 4.2 g/dL (3.4-5.0); ANION GAP 11 mmol/L (5-15); CALCIUM 8.7 mg/dL (8.5-10.1); CHLORIDE 105 mmol/L (98-107); CREATININE 0.93 mg/dL (0.7-1.3)
[2020-07-09 05:22] LABS: ALKALINE PHOSPHATASE 122 U/L (45-117); BILIRUBIN,TOTAL 0.9 mg/dL (0.2-1.0); TOTAL PROTEIN 7.9 g/dL (6.4-8.2)
[2020-07-09] MEDS ORDERED: METOCLOPRAMIDE 10MG TABLET ONE (06:02)
[2020-07-09] MEDS ORDERED: FAMOTIDINE 20 MG TABLET ONE (06:14)
[2020-07-09] MEDS ORDERED: FAMOTIDINE 20 MG TABLET PO ONE (06:30)
[2020-07-09] MEDS ORDERED: METOCLOPRAMIDE 10MG TABLET PO PRN (06:30)
[2020-07-09 07:41] VITALS: BP 125/82
--- NOTE | 2020-07-09 08:06 | NUR ---
Pt able to drink several cups of water. Pt states he still has nausea but vomiting has stopped. Pt given taxi voucher to [facility]. Rx reviewed with patient. Pt with stable VS, and is A&O x 4. Patient/Caregiver given discharge instructions and they have confirmed that they understand the instructions. Patient ambulatory with steady gait.
== END 2020-07-09 08:09 | disposition home or self-care (01) ==
LOC: ED 07:11
DX: K29.20 Alcoholic gastritis without bleeding (principal); F10.220 Alcohol dependence with intoxication, uncomplicated; I10 Essential (primary) hypertension; J44.9 Chronic obstructive pulmonary disease, unspecified; R11.2 Nausea with vomiting, unspecified; Y90.0 Blood alcohol level of less than 20 mg/100 ml
CPT/HCPCS: 36415; 80053; 83690; 85025; 93005; 99284; Q0162

== ENCOUNTER 2020-07-22 15:14 | Emergency (ER) | payer MEDICAID ==
[~2020-07-22] VITALS: Ht 185.4 cm; Wt 76.6 kg
[~2020-07-22 15:14] MED LIST changes: +MULT-482 PO; -MULT-750 PO
--- NOTE | 2020-07-22 15:49 | NUR ---
PT AMBULATORY TO ROOM 13 W/ C/O HEARING VOICES SINCE HE'S BEEN OUT OF SEROQUEL X 3 DAYS. PT STATES SI. DENIES HI. HAS A PLAN TO HURT HIMSELF W/ SLEEPING PILLS. PT STATES HE HAS BEEN DRINKING ETOH. LAST USE TODAY. PT STATES "I'M HOPING TO GET INTO [facility]".
--- NOTE | 2020-07-22 15:59 | NUR ---
PT STATES SI W/ PLAN TO KILL SELF OVERDOSING ON PILLS. PT IN NEED OF SITTER AND LOCKED ROOM. PERSONAL BELONINGS BAGS (1 OF 1) PLACED IN SECURE LOCKER. ALLEN DOS SANTOS RN NOTIFIED OF NEED FOR SITTER FOR PT.
--- NOTE | 2020-07-22 16:13 | NUR ---
BREAK RN: PT RESTING IN ROOM. VS STABLE. NO ACUTE DISTRESS NOTED. WILL CONTINUE TO MONITOR WHILE PRIMARY RN IS ON BREAK.
[2020-07-22 16:29] LABS: BASOPHILS % (AUTO) 2 % (0-1); EOSINOPHILS % (AUTO) 2 % (1-7); LYMPHOCYTES % (AUTO) 34 % (22-44); MEAN CORPUSCULAR HEMOGLOBIN 31.5 pg (27.5-34.5); MEAN CORPUSCULAR HGB CONC 34.2 g/dL (33.2-36.2); MEAN PLATELET VOLUME 8.3 fL (7.4-10.4); MONOCYTES % (AUTO) 9 % (2-9); NEUTROPHILS % (AUTO) 53 % (42-75); PLATELET COUNT 243 x10^3/uL (130-400); RED BLOOD COUNT 4.56 x10^6/uL (4.38-5.82); RED CELL DISTRIBUTION WIDTH 14.4 % (9.4-14.8)
[2020-07-22 16:33] LABS: MD NO
[2020-07-22 16:41] LABS: ALBUMIN 3.9 g/dL (3.4-5.0); ANION GAP 6 mmol/L (5-15); CALCIUM 8.5 mg/dL (8.5-10.1); CHLORIDE 104 mmol/L (98-107); CREATININE 0.88 mg/dL (0.7-1.3)
[2020-07-22 16:42] LABS: SALICYLATE LEVEL < 1.7 mg/dL (2.8-20.0)
--- NOTE | 2020-07-22 16:52 | NUR ---
PT RESTING ON GURNEY. NADN. HERNANDEZ.
[2020-07-22 17:04] LABS: AMPHETAMINE SCREEN, URINE Negative (Negative); BARBITURATE SCREEN, URINE Negative (Negative); BENZODIAZEPINE SCREEN, URINE Negative (Negative); CANNABINOID SCREEN, URINE Negative (Negative); COCAINE SCREEN, URINE Negative (Negative); METHADONE SCREEN, URINE Negative (Negative); OPIATE SCREEN, URINE Negative (Negative)
--- NOTE | 2020-07-22 18:04 | NUR ---
REPORT FROM AAMIR
--- NOTE | 2020-07-22 18:05 | NUR ---
REPORT GIVEN TO RICKI NGUYEN. PT MOVED TO ROOM 2.
--- NOTE | 2020-07-22 18:45 | NUR ---
REPORT TO JHON
--- NOTE | 2020-07-22 18:47 | NUR ---
REPORT FROM WENDY. TRANSFER OF CARE
--- NOTE | 2020-07-22 19:00 | NUR ---
PER THROUGHPUT RN, PT MAY BE ACCEPTED TO [facility] ADMIT
--- NOTE | 2020-07-22 19:16 | NUR ---
PT UP TO RESTROOM STEADY GAIT, SITTER REMAINS FOR SAFETY.
--- NOTE | 2020-07-22 20:19 | NUR ---
[place] [facility], PT NOW RE MEDICATIONS. EDUCATED ON NEED FOR MD ORDER AND PROCESS AT THIS TIME. ALEX REMAINS IN SIGHT FOR SAFETY
[2020-07-22] MEDS ORDERED: QUETIAPINE 100MG TABLET PO STA (20:43)
[2020-07-22] MEDS ORDERED: IBUPROFEN 600 MG TABLET PO ONE (21:00)
[2020-07-22] MEDS ORDERED: IBUPROFEN 600 MG TABLET ONE (21:00)
[2020-07-22 21:03] VITALS: BP 138/88
--- NOTE | 2020-07-22 21:04 | NUR ---
Patient/Caregiver given discharge instructions and they have confirmed that they understand the instructions. Patient ambulatory with steady gait.
--- NOTE | 2020-07-22 21:04 | NUR ---
SECURITY CALLED FOR ASSISTANCE TO ESCORT PT OUT OF ROOM. PT SHOUTING AT RN THAT HE DOES NOT WANT TO LEAVE AND HE IS BEING ADMITTED.
== END 2020-07-22 21:06 | disposition home or self-care (01) ==
LOC: EDUNIT# 15:14 → ED 17:12
DX: F43.9 Reaction to severe stress, unspecified (principal); R44.0 Auditory hallucinations; Z76.0 Encounter for issue of repeat prescription; R45.851 Suicidal ideations
CPT/HCPCS: 36415; 80048; 80299; 80307; 80320; 80329; 82040; 85025; 99283; G0480

== ENCOUNTER 2020-08-10 02:16 | Emergency (ER) | payer MEDICAID ==
[~2020-08-10] VITALS: Ht 185.4 cm; Wt 77.4 kg
[~2020-08-10 02:16] MED LIST changes: +SULF-23 PO; -SULF1TAB24 PO
[2020-08-10] MEDS ORDERED: PROMETHAZINE 25MG TABLET ONE (02:40)
[2020-08-10] MEDS ORDERED: THIAMINE 100MG TABLET ONE (02:40)
[2020-08-10 02:50] VITALS: BP 140/78
--- NOTE | 2020-08-10 02:51 | NUR ---
Patient/Caregiver given discharge instructions and they have confirmed that they understand the instructions. Patient ambulatory with steady gait.
[2020-08-10] MEDS ORDERED: PROMETHAZINE 25MG TABLET PO ONE (03:00)
[2020-08-10] MEDS ORDERED: THIAMINE 100MG TABLET PO ONE (03:00)
== END 2020-08-10 02:52 | disposition home or self-care (01) ==
LOC: ED 02:45
DX: F10.220 Alcohol dependence with intoxication, uncomplicated (principal); I10 Essential (primary) hypertension; J44.9 Chronic obstructive pulmonary disease, unspecified; Z90.89 Acquired absence of other organs; Z72.9 Problem related to lifestyle, unspecified; Y90.0 Blood alcohol level of less than 20 mg/100 ml
CPT/HCPCS: 99283; Q0169

== ENCOUNTER 2020-09-04 21:50 | Emergency (ER) | payer MEDICAID ==
[~2020-09-04] VITALS: Ht 185.4 cm; Wt 76.6 kg
--- NOTE | 2020-09-04 22:49 | NUR ---
PT RESTING IN GURNEY, ON ALL MONITORS, DOZING INTERMITTENTLY. PIV IN PLACE, LABS DRAWN, AWAITING ERP EVAL
[2020-09-04] MEDS ORDERED: ASPIRIN 81 MG TABLET CHEW PO ONE (23:30)
[2020-09-04] MEDS ORDERED: SODIUM CHLORIDE 0.9% 1,000ML IVBOLUS ONE (23:30)
[2020-09-04 23:40] LABS: BASOPHILS % (AUTO) 1 % (0-1); EOSINOPHILS % (AUTO) 4 % (1-7); LYMPHOCYTES % (AUTO) 25 % (22-44); MEAN CORPUSCULAR HEMOGLOBIN 31.6 pg (27.5-34.5); MEAN PLATELET VOLUME 9.1 fL (7.4-10.4); MONOCYTES % (AUTO) 6 % (2-9); NEUTROPHILS % (AUTO) 64 % (42-75); PLATELET COUNT 180 x10^3/uL (130-400); RED BLOOD COUNT 4.45 x10^6/uL (4.38-5.82); RED CELL DISTRIBUTION WIDTH 15.4 % (9.4-14.8)
[2020-09-04] MEDS ORDERED: ASPIRIN 81 MG TABLET CHEW ONE (23:40)
[2020-09-04 23:42] LABS: MD NO
[2020-09-04 23:50] LABS: ALBUMIN 3.6 g/dL (3.4-5.0); ANION GAP 6 mmol/L (5-15); CALCIUM 8.2 mg/dL (8.5-10.1); CHLORIDE 104 mmol/L (98-107)
[2020-09-04 23:55] LABS: CREATININE 0.84 mg/dL (0.7-1.3); TROPONIN I < 0.015 ng/mL (0.000-0.045)
--- NOTE | 2020-09-05 01:26 | NUR ---
BREAK RN: PT IS A&OX4. VS STABLE. PT IS ABLE TO SAFELY AMBULATE AROUND ROOM AND YU. PT IS ABLE TO GET SELF DRESSED. PT REPORTS HE WANTS A TAXI HOME. DR CATALAN HAS UPDATED PATIENT. PATIENT TO BE DISCHARGED PER PROVIDER. PT GIVEN MILK AND CRACKERS.
[2020-09-05 01:53] VITALS: BP 97/67
== END 2020-09-05 01:55 | disposition home or self-care (01) ==
LOC: ED 23:01
DX: R07.89 Other chest pain (principal); R00.2 Palpitations; R42 Dizziness and giddiness; I10 Essential (primary) hypertension; J44.9 Chronic obstructive pulmonary disease, unspecified; G40.909 Epilepsy, unspecified, not intractable, without status epilepticus; Z87.891 Personal history of nicotine dependence; R94.31 Abnormal electrocardiogram [ECG] [EKG]; Z86.19 Personal history of other infectious and parasitic diseases
CPT/HCPCS: 36415; 71045; 80048; 82040; 83880; 84484; 85025; 85379; 93005; 96360; 99285; J7030

== ENCOUNTER 2020-10-17 05:19 | Observation (INO) | payer MEDICAID ==
[~2020-10-17] VITALS: Ht 185.4 cm; Wt 75.3 kg
--- NOTE | 2020-10-17 06:08 | NUR ---
pt to secured room from wall
--- NOTE | 2020-10-17 06:38 | NUR ---
ANXIETY, PANIC ATTACKS SINCE LAST NIGHT. HEARING VOICES IN HEAD. HX METH USE, SCHIZOPHRENIA. STATES SI, NO PLAN. STATES HE IS GOING TO GET HIS STIMULUS CHECK AND GO TO [place] TO BE WITH HIS DAUGHTER. PT COOPERATIVE. PROVIDED URINE SAMPLE. PLACED IN A SECURE ROOM. ALL GUARD RAILS DOWN. ALL BELONGINGS PLACED INTO PSYCH LOCKER. NO SITTER AVAILABLE, SITTER REQUESTED FROM [employer]. THIS RN TO INITIATE Q15 MIN SAFTEY CHECKS.
--- NOTE | 2020-10-17 06:48 | NUR ---
sitter now available and at bedside for frequent checks on pt.
[2020-10-17 06:51] LABS: BASOPHILS % (AUTO) 2 % (0-1); EOSINOPHILS % (AUTO) 2 % (1-7); LYMPHOCYTES % (AUTO) 34 % (22-44); MEAN CORPUSCULAR HEMOGLOBIN 31.3 pg (27.5-34.5); MEAN CORPUSCULAR HGB CONC 34.2 g/dL (33.2-36.2); MEAN PLATELET VOLUME 8.2 fL (7.4-10.4); MONOCYTES % (AUTO) 10 % (2-9); NEUTROPHILS % (AUTO) 53 % (42-75); PLATELET COUNT 208 x10^3/uL (130-400); RED BLOOD COUNT 4.43 x10^6/uL (4.38-5.82); RED CELL DISTRIBUTION WIDTH 15.2 % (9.4-14.8)
--- NOTE | 2020-10-17 06:54 | NUR ---
ASSUMING CARE OF PATIENT AFTER BEDSIDE REPORT FROM [facility]. PT ASLEEP WITH EVEN AND UNLABORED RESPIRATIONS. SITTER AT BEDSIDE. SAFTEY PRECAUTIONS IN PLACE.
[2020-10-17 06:56] LABS: AMPHETAMINE SCREEN, URINE Positive (Negative); BARBITURATE SCREEN, URINE Negative (Negative); BENZODIAZEPINE SCREEN, URINE Negative (Negative); CANNABINOID SCREEN, URINE Negative (Negative); COCAINE SCREEN, URINE Negative (Negative); METHADONE SCREEN, URINE Negative (Negative); OPIATE SCREEN, URINE Negative (Negative)
--- NOTE | 2020-10-17 06:58 | NUR ---
REPORT TO RUBY RN Addendum: 10/17/20 at 0658 by CIARAN TARA
[2020-10-17 07:00] LABS: ALBUMIN 3.8 g/dL (3.4-5.0); ANION GAP 3 mmol/L (5-15); CALCIUM 8.8 mg/dL (8.5-10.1); CHLORIDE 109 mmol/L (98-107)
[2020-10-17 07:01] LABS: SALICYLATE LEVEL < 1.7 mg/dL (2.8-20.0)
[2020-10-17 07:03] LABS: ALANINE AMINOTRANSFERASE 22 U/L (12-78); ALKALINE PHOSPHATASE 68 U/L (45-117)
[2020-10-17 07:45] VITALS: BP 129/85
--- NOTE | 2020-10-17 08:37 | NUR ---
PT SITTING UP EATING BREAKFAST PROVIDE. SPOKE WITH DR. WOOD REGARDING MORNING MEDICATIONS. PT TO BE MEDICATED PER MED REC AND EMAR.
[2020-10-17] MEDS ORDERED: LISINOPRIL 10 MG TABLET ONE (08:47)
[2020-10-17] MEDS ORDERED: QUETIAPINE 100MG TABLET ONE (08:48)
[2020-10-17] MEDS ORDERED: FLUOXETINE HCL 20 MG CAPSULE ONE (08:48)
--- NOTE | 2020-10-17 08:57 | NUR ---
PT MEDICATED PER EMAR. LAYING IN BED WATCHING TV. VSS. SITTER AT BESIDE. SAFTEY PRECAUTIONS IN PLACE.
[2020-10-17] MEDS ORDERED: LISINOPRIL 10 MG TABLET PO ONE (09:00)
[2020-10-17] MEDS ORDERED: FLUOXETINE HCL 20 MG CAPSULE PO ONE (09:00)
--- NOTE | 2020-10-17 09:23 | NUR ---
PT ASLEEP WITH EVEN AND UNLABORED RESPIRATIONS. SITTER AT BEDSIDE. SAFTEY PRECAUTIONS IN PLACE. NATHALY.
[2020-10-17] MEDS ORDERED: QUETIAPINE 200 MG TABLET PO ONE (09:30)
--- NOTE | 2020-10-17 10:30 | NUR ---
[facility] [employer] WORK TO BEDSIDE FOR EVALUATION
--- NOTE | 2020-10-17 11:41 | NUR ---
Patient given discharge instructions and they have confirmed that they understand the instructions. Patient ambulatory with steady gait. NAD, all questions answered appropriately, denies additional needs at this time. No personal belongings left in room after discharge.
== END 2020-10-17 11:49 | disposition home or self-care (01) ==
LOC: ED 06:25 → EDIP 06:46 → INTOOBSV 06:46 → EDIP 11:49
PROVIDERS: ADMIT Emergency Medicine; ATTEND Emergency Medicine
DX: R45.851 Suicidal ideations (principal); F25.9 Schizoaffective disorder, unspecified; F15.10 Other stimulant abuse, uncomplicated; I10 Essential (primary) hypertension; F31.9 Bipolar disorder, unspecified; J44.9 Chronic obstructive pulmonary disease, unspecified; G40.909 Epilepsy, unspecified, not intractable, without status epilepticus; F41.1 Generalized anxiety disorder; Z87.891 Personal history of nicotine dependence; Z79.899 Other long term (current) drug therapy
CPT/HCPCS: 36415; 80053; 80299; 80307; 80320; 80329; 85025; 93005; 99284; G0378; G0480

== ENCOUNTER 2020-12-27 16:46 | Emergency (ER) | payer MEDICAID ==
[~2020-12-27] VITALS: Ht 185.4 cm; Wt 76.0 kg
[~2020-12-27 16:46] MED LIST changes: -QUET100T PO; +QUET100T2 PO; -QUET200T PO; +QUET200T2 PO; -QUET400T PO; +QUET400T2 PO
[2020-12-27 16:53] VITALS: BP 109/69
[2020-12-27] MEDS ORDERED: DIPH,PERTUSS(ACELL),TET VAC/PF 0.5 ML IM-VACC ONE ×2 (17:00→17:51)
--- NOTE | 2020-12-27 17:34 | NUR ---
PT AMBULATORY TO ROOM 11 W/ C/O R RING FINGER SWELLING, PAIN AND REDNESS STARTED 3 DAYS AGO. PT STATES HE THINKS SOMETHING GOT IN THERE. PT RESTING ON [place]. NATHALY. CYRUS OWENS AT BEDSIDE FOR EVAL.
[2020-12-27] MEDS ORDERED: LIDOCAINE-MPF 1%, 5ML ONE (17:36)
[2020-12-27] MEDS ORDERED: CEPHALEXIN 500 MG CAPSULE ONE (17:51)
[2020-12-27] MEDS ORDERED: CEPHALEXIN 500 MG CAPSULE PO ONE (18:00)
== END 2020-12-27 18:26 | disposition home or self-care (01) ==
LOC: ED 16:56
DX: L03.011 Cellulitis of right finger (principal)
CPT/HCPCS: 26011; 90471; 90715; 99284

== ENCOUNTER 2021-01-01 01:35 | Emergency (ER) | payer MEDICAID ==
[~2021-01-01] VITALS: Ht 185.4 cm; Wt 74.3 kg
[2021-01-01 01:44] VITALS: BP 164/71
== END 2021-01-01 03:34 | disposition home or self-care (01) ==
LOC: ED 01:50
DX: F10.120 Alcohol abuse with intoxication, uncomplicated (principal); Z72.9 Problem related to lifestyle, unspecified; Y90.0 Blood alcohol level of less than 20 mg/100 ml
CPT/HCPCS: 99281